=== PATIENT | male | born 1970 | race African-American/Black ===

== ENCOUNTER 2021-03-21 18:48 | Inpatient (IN) | payer OTHER, SELFPAY ==
--- NOTE | 2021-03-21 18:53 | ED_ITS ---
HPI - Psych General Chief Complaint: Psychiatric Symptoms Stated Complaint: crisis Time Seen by Provider: 03/21/21 19:36 Source: patient Mode of arrival: ambulatory Limitations: no limitations History of Present Illness HPI Narrative: Patient presents to ED for depression, and suicidal ideation with plan to overdose. Patient was recently discharged from inpatient psychiatry and was sent to partial hospitalization and then was discharged by Partial hospitalization although he still states having suicidal thoughts and being depressed. Patient was sent to his residential where they refused to take care of patient due to patient still having SI thoughts. [facility] called [facility] is a patient could be evaluated in the ED. Patient feeling anxious. Related Data Home Medications Medication Instructions Recorded Confirmed cholecalciferol (vitamin D3) 25 mcg PO DAILY 03/21/21 03/21/21 [Vitamin D3] clonidine HCl 0.1 mg PO BID PRN 03/21/21 03/21/21 pantoprazole 40 mg PO DAILY 03/21/21 03/21/21 phenytoin sodium extended 300 mg PO DAILY 03/21/21 03/21/21 [Phenytek] trazodone 100 mg PO BEDTIME 03/21/21 03/21/21 ziprasidone HCl [Geodon] 20 mg PO BID 03/21/21 03/21/21 Allergies Allergy/AdvReac Type Severity Reaction Status Date / Time No Known Allergies Allergy Verified 03/21/21 19:16 Review of Systems Review of Systems: Yes all other systems are reviewed and are negative Constitutional: Constitutional: Reports as per HPI and Reports no additional constitutional complaints Eyes: Eyes: Reports as per HPI and Reports no additional eye complaints ENT: Reports system reviewed and no additional complaints, except as documented and Reports as per HPI Cardiovascular: Cardiovascular: Reports as per HPI and Reports no additional cardiovascular complaints Respiratory: Respiratory: Reports as per HPI and Reports no additional respiratory complaints Gastrointestinal: Gastrointestinal: Reports as per HPI and Reports no additional gastrointestinal complaints Genitourinary: Genitourinary: Reports no additional male genitourinary complaints and Reports as per HPI Musculoskeletal: Musculoskeletal: Reports no additional musculoskeletal complaints and Reports as per HPI Neurologic: Reports system reviewed and no additional complaints, except as documented and Reports as per HPI Psychiatric: Psychiatric: Reports no additional psychiatric complaints, Reports as per HPI, Reports anxiety, Reports depression and Reports suicidal ideation PMFSH Social History Social History Advance Directives: No Advance Directives Information Provided: Yes Physical Exam 2 Vital Signs: Vital Signs: Last Vital Signs Temp 97.3 F 03/22/21 00:11 Pulse 63 03/22/21 00:11 Resp 16 03/22/21 00:11 BP 110/80 03/22/21 00:11 Pulse Ox 94 03/22/21 00:11 Body Mass Index 31.7 Const: General: cooperative, healthy appearing, comfortable, no acute distress, well developed, alert and awake Orientation/consciousness: patient oriented x3 HENMT: Head: Yes normal to inspection, Yes No palpable skull fracture present, Yes normocephalic, Yes atraumatic and Yes abrasion Eyes: General: appearance normal, both eyes and all related structures Neck: Neck: Yes normal visual inspection, Yes full ROM, Yes no lymphadenopathy, Yes no meningeal signs, Yes trachea midline, Yes supple and No tender Chest: Chest palpation & inspection: normal inspection of the chest and normal palpation of entire chest wall Resp: Effort & Inspection: normal respiratory effort and able to speak in complete sentences Cardio: Jugular venous distension: no JVD Heart sounds: S1 normal heart sound present and S2 normal heart sound present GI: Inspection: Yes normal to inspection and No abdominal wall ecchymosis Palpation (GI): Soft to palpation, not firm, nontender, no guarding and not rigid : General: No CVA tenderness and Yes no CVA tenderness Back/Spine/Pelvis: Back: no CVA tenderness, No CVA tenderness and No back tenderness Skin: General skin exam: no rashes or lesions noted and elasticity normal Neuro: General: patient oriented x3, gait normal, no meningeal signs and CN's II-XI intact bilaterally Cranial nerves: Yes CN's II-XII intact bilaterally Extrem: General: Yes normal to inspection and Yes full ROM Psych: Appearance: grossly normal, well kempt and not disheveled Thought content: Suicidality present and Depressive thoughts present Course Course Course Narrative: Patient will have labs drawn and be evaluated by S Reevaluation(s) Reevaluation #1: Labs are normal. Patient awatied N evaluation. MDM - Psych Lab Data Result diagrams: 03/21/21 19:34 03/21/21 19:34 Labs: Lab Results 03/21/21 03/21/21 03/21/21 Range/Units 19:22 19:23 19:23 WBC (4.8-10.8) X10*3/uL RBC (4.60-5.80) X10*6/uL Hgb (14.0-18.0) g/dl Hct (42-52) % MCV (80-98) fL MCH (27.0-33.0) pg MCHC (31.0-36.0) g/dl RDW (11.0-16.0) % Plt Count (160-400) X10*3/uL MPV (9.4-12.4) fL Immature Gran % (Auto) (0.0-0.4) % Neut % (Auto) (45-73) % Lymph % (Auto) (20-40) % [place] % (Auto) (2-11) % Eos % (Auto) (0-4) % Baso % (Auto) (0-2) % Lymph # (Auto) (1.2-4.9) X10*3/uL [place] # (Auto) (0.1-1.2) X10*3/uL Eos # (Auto) (0.0-0.4) X10*3/uL Baso # (Auto) (0.0-0.2) X10*3/uL Abs Immat Gran (auto) (0.00-0.03) X10*3/uL Absolute Neuts (auto) (2.0-8.3) X10*3/uL Absolute Nucleated RBC (0.0-0.012) X10*3/uL Nucleated RBC % (auto) (0.0-0.2) /100WBC Sodium (135-145) mmol/L Potassium (3.3-5.1) mmol/L Chloride (96-108) mmol/L Carbon Dioxide (22-29) mmol/L Anion Gap (12-20) BUN (9-16) mg/dL Creatinine (0.5-1.4) mg/dL Estim Creat Clear Calc Estimated GFR Random Glucose (60-115) mg/dL Calcium (8.4-10.2) mg/dL Total Bilirubin (0.0-1.0) mg/dL Direct Bilirubin (0.0-0.5) mg/dL AST (5-37) U/L ALT (0-40) U/L Alkaline Phosphatase (39-117) U/L Total Protein (6.5-8.0) g/dL Albumin (3.5-5.0) g/dL TSH (0.32-4.0) uIU/mL Urine Color YELLOW Urine Appearance HAZY Urine pH 6.5 (5.0-8.0) Ur Specific [place] 1.025 (1.005-1.025) Urine Protein NEG (NEG-TRACE) MG/DL Urine Glucose (UA) NEG (NEG) MG/DL Urine Ketones 5 (NEG) MG/DL Urine Blood NEG (NEG) Urine Nitrite NEG (NEG) Ur Leukocyte Esterase NEG (NEG) Urine RBC 0-2 (0) /HPF Urine WBC 0 (0-4) /HPF Ur Squamous Epith Cells TRACE /LPF Amorphous Sediment 1+ /LPF Urine Bacteria 1+ /LPF Urine Mucus 1+ /LPF Urine Opiates Screen Not Detected (Not Detect) Ur Barbiturates Screen Not Detected (Not Detect) Ur Phencyclidine Scrn Not Detected (Not Detect) Ur Amphetamines Screen Not Detected (Not Detect) U Benzodiazepines Scrn Not Detected (Not Detect) Urine Cocaine Screen Not Detected (Not Detect) U Marijuana (THC) Screen Not Detected (Not Detect) COVID-19 (VAUGHN) Negative (Negative) COVID-19 Clin Com See Note 03/21/21 03/21/21 03/21/21 Range/Units 19:34 19:34 19:34 WBC 7.0 (4.8-10.8) X10*3/uL RBC 4.89 (4.60-5.80) X10*6/uL Hgb 15.6 (14.0-18.0) g/dl Hct 44.3 (42-52) % MCV 90.6 (80-98) fL MCH 31.9 (27.0-33.0) pg MCHC 35.2 (31.0-36.0) g/dl RDW 11.9 (11.0-16.0) % Plt Count 247 (160-400) X10*3/uL MPV 9.6 (9.4-12.4) fL Immature Gran % (Auto) 0.3 (0.0-0.4) % Neut % (Auto) 52.9 (45-73) % Lymph % (Auto) 35.3 (20-40) % [place] % (Auto) 7.7 (2-11) % Eos % (Auto) 2.7 (0-4) % Baso % (Auto) 1.1 (0-2) % Lymph # (Auto) 2.5 (1.2-4.9) X10*3/uL [place] # (Auto) 0.5 (0.1-1.2) X10*3/uL Eos # (Auto) 0.2 (0.0-0.4) X10*3/uL Baso # (Auto) 0.1 (0.0-0.2) X10*3/uL Abs Immat Gran (auto) 0.02 (0.00-0.03) X10*3/uL Absolute Neuts (auto) 3.7 (2.0-8.3) X10*3/uL Absolute Nucleated RBC 0.000 (0.0-0.012) X10*3/uL Nucleated RBC % (auto) 0.0 (0.0-0.2) /100WBC Sodium 141 (135-145) mmol/L Potassium 4.0 (3.3-5.1) mmol/L Chloride 103 (96-108) mmol/L Carbon Dioxide 30 H (22-29) mmol/L Anion Gap 12 (12-20) BUN 16 (9-16) mg/dL Creatinine 1.34 (0.5-1.4) mg/dL Estim Creat Clear Calc 75.9 Estimated GFR 56 Random Glucose 109 (60-115) mg/dL Calcium 9.9 (8.4-10.2) mg/dL Total Bilirubin 0.3 (0.0-1.0) mg/dL Direct Bilirubin < 0.2 (0.0-0.5) mg/dL AST 16 (5-37) U/L ALT 18 (0-40) U/L Alkaline Phosphatase 102 (39-117) U/L Total Protein 7.6 (6.5-8.0) g/dL Albumin 4.5 (3.5-5.0) g/dL TSH 1.12 (0.32-4.0) uIU/mL Urine Color Urine Appearance Urine pH (5.0-8.0) Ur Specific [place] (1.005-1.025) Urine Protein (NEG-TRACE) MG/DL Urine Glucose (UA) (NEG) MG/DL Urine Ketones (NEG) MG/DL Urine Blood (NEG) Urine Nitrite (NEG) Ur Leukocyte Esterase (NEG) Urine RBC (0) /HPF Urine WBC (0-4) /HPF Ur Squamous Epith Cells /LPF Amorphous Sediment /LPF Urine Bacteria /LPF Urine Mucus /LPF Urine Opiates Screen (Not Detect) Ur Barbiturates Screen (Not Detect) Ur Phencyclidine Scrn (Not Detect) Ur Amphetamines Screen (Not Detect) U Benzodiazepines Scrn (Not Detect) Urine Cocaine Screen (Not Detect) U Marijuana (THC) Screen (Not Detect) COVID-19 (VAUGHN) (Negative) COVID-19 Clin Com Discharge Plan Discharge Clinical Impression: Depression Prescriptions: No Action clonidine HCl 0.1 mg Tablet 0.1 mg PO BID PRN (Reason: Anxiety) RF: 0 phenytoin sodium extended [Phenytek] 300 mg Capsule 300 mg PO DAILY RF: 0 ziprasidone HCl [Geodon] 20 mg Capsule 20 mg PO BID RF: 0 trazodone 100 mg Tablet 100 mg PO BEDTIME RF: 0 cholecalciferol (vitamin D3) [Vitamin D3] 25 mcg (1,000 unit) Capsule 25 mcg PO DAILY RF: 0 pantoprazole 40 mg Tablet,Delayed Release (Dr/Ec) 40 mg PO DAILY RF: 0
[2021-03-21 19:05] VITALS: BP 146/95; PULSE 69; RESP 18; TEMP 36.4; O2SAT 95; BMI 31.7
[2021-03-21 19:38] LABS: Appearance Urine HAZY; Color Urine YELLOW; Glucose Urine UA NEG (NEG); Leukocyte Esterase Urine NEG (NEG); Nitrite Urine NEG (NEG); PH 6.5 (5.0-8.0); Specific Gravity - Urine 1.025 (1.005-1.025); Urine Blood NEG (NEG); Urine Ketones 5 MG/DL (NEG); Urine Protein NEG (NEG-TRACE)
[2021-03-21 19:41] LABS: MANUAL DIFF FLAG NO
[2021-03-21 19:42] LABS: Basophils Absolute Auto 0.1 X10*3/uL (0.0-0.2); Basophils Percent Auto 1.1 % (0-2); Eosinophils Absolute Auto 0.2 X10*3/uL (0.0-0.4); Eosinophils Percent Auto 2.7 % (0-4); Hematocrit 44.3 % (42-52); Hemoglobin 15.6 g/dl (14.0-18.0); Imm Gran Abs Auto 0.02 X10*3/uL (0.00-0.03); Imm Gran Pct Auto 0.3 % (0.0-0.4); Lymphocytes Absolute Auto 2.5 X10*3/uL (1.2-4.9); Lymphocytes Percent Auto 35.3 % (20-40); Mean Corpuscular HGB Conc 35.2 g/dl (31.0-36.0); Mean Corpuscular Hemoglobin 31.9 pg (27.0-33.0); Mean Corpuscular Volume 90.6 fL (80-98); Mean Platelet Volume 9.6 fL (9.4-12.4); Monocytes Absolute Auto 0.5 X10*3/uL (0.1-1.2); Monocytes Percent Auto 7.7 % (2-11); Neutrophils Absolute Auto 3.7 X10*3/uL (2.0-8.3); Neutrophils Percent Auto 52.9 % (45-73); Platelet Count 247 X10*3/uL (160-400); Red Blood Count 4.89 X10*6/uL (4.60-5.80); Red Cell Distribution Width 11.9 % (11.0-16.0)
[2021-03-21 19:47] LABS: Amorphous Sediment Urine 1+ /LPF; Bacteria Urine 1+ /LPF; Mucus Urine 1+ /LPF; RBC Urine 0-2 /HPF (0); Squamous Epithelial Cell Urine TRACE /LPF; WBC Urine 0 /HPF (0-4)
[2021-03-21 19:47] LABS: COVID-19 Test Negative (Negative)
[2021-03-21 20:03] LABS: Alanine Aminotransferase 18 U/L (0-40); Albumin Level 4.5 g/dL (3.5-5.0); Alkaline Phosphatase 102 U/L (39-117); Anion Gap 12 (12-20); Aspartate Amino Transferase 16 U/L (5-37); Bilirubin Direct < 0.2 mg/dL (0.0-0.5); Bilirubin Total 0.3 mg/dL (0.0-1.0); Blood Urea Nitrogen 16 mg/dL (9-16); Calcium 9.9 mg/dL (8.4-10.2); Carbon Dioxide 30 mmol/L (22-29); Chloride 103 mmol/L (96-108); Creatinine Clr Calc Pharmacy 75.9; Estimated Glomerular Filt Rate 56; Glucose Random 109 mg/dL (60-115); Sodium 141 mmol/L (135-145); Total Protein 7.6 g/dL (6.5-8.0)
[2021-03-21 20:23] LABS: Thyroid Stimulating Hormone 1.12 uIU/mL (0.32-4.0)
[2021-03-21] MEDS: traZODone HCL 100 MG TABLET PO (22:44)
[2021-03-21] MEDS: Ziprasidone 20 MG CAPSULE PO (22:44)
[2021-03-21 23:20] LABS: Amphetamine Screen Urine Not Detected (Not Detect); Barbiturates, Urine Not Detected (Not Detect); Benzodiazepines Screen Urine Not Detected (Not Detect); Cannabinoid Screen Urine Not Detected (Not Detect); Cocaine Screen Urine Not Detected (Not Detect); Opiate Screen Urine Not Detected (Not Detect); Phencyclidine Screen Urine Not Detected (Not Detect)
--- NOTE | 2021-03-22 | ECG_ITS ---
Test Reason : MED CLEARENCE Blood Pressure : / mmHG Vent. Rate : 057 BPM Atrial Rate : 057 BPM P-R Int : 134 ms QRS Dur : 096 ms QT Int : 450 ms P-R-T Axes : 008 026 032 degrees QTc Int : 438 ms Sinus bradycardia Otherwise normal ECG No previous ECGs available Referred By: Lary Constantino Electronically Signed By:GUSTAVO MICHELLE MD
[2021-03-22 00:11] VITALS: BP 110/80; PULSE 63; RESP 16; TEMP 36.3; O2SAT 94
--- NOTE | 2021-03-22 06:43 | PC.NURSE ---
Patient in bed appears sleeping at this time, patient slept through the night, patient reported that he does not want to go back to [facility] in [place] {TSS}, awaiting N evaluation no distress observed/reported, alert and oriented, behavior appropriate, will continue to monitor.
[2021-03-22] MEDS: Omeprazole 20 MG CAPSULE.DR PO (09:20)
[2021-03-22] MEDS: Cholecalciferol (Vitamin D3) 25 MCG TABLET PO (09:20)
[2021-03-22] MEDS: Phenytoin Sodium Extended 100 MG CAPSULE 300 MG PO (09:22)
[2021-03-22] MEDS: Ziprasidone 20 MG CAPSULE PO ×2 (09:23→17:14)
--- NOTE | 2021-03-22 13:49 | PC.NURSE ---
late entry, upon start of shift patient had appeared to remain at rest with no apparent distress.
[2021-03-22 16:45] VITALS: BP 125/81; PULSE 82; RESP 16; TEMP 36.2; O2SAT 95
--- NOTE | 2021-03-22 17:39 | PC.NURSE ---
patient refused ekg
[2021-03-22 18:34] VITALS: BP 128/101; PULSE 63; TEMP 36.1
--- NOTE | 2021-03-22 19:18 | PC.NURSE ---
Pt admitted to [facility] after being in th ER at [facility]. Pt arrived on the unit at 1742. Pt is a 50 year old homeless male after he was brought by ambulance a local [facility] after he reported having SI and AH telling him to leave that facility. Pt has been DC from the program though refused to return. He has been in recovery alcohol and cocaine for the last year, said this relapse resulted in him losing stable housing and his providers in [facility] where he has lived all his life. In speaking with patient it appears that he has a mild developmental disability or a TBI impacting his memory and processing skills by Pts report, he has eloped from other programs in a similar fashion :voices warning him that he is in danger, telling him to leave immediately, therefore has not been able to access appropriate treatment/care. Pt believes they are keeping him from danger and does not have insight into the possibility of that not being true. Pt has poor judgement an impulse control. Pt has no providers, lost his housing and is unfamiliar with the area and cannot be safe in the community .Pt signed a CV.
[2021-03-22] MEDS: traZODone HCL 100 MG TABLET PO (22:49)
[2021-03-23 06:00] VITALS: BP 177/108; PULSE 76; TEMP 36.2; O2SAT 96
[2021-03-23] MEDS: Omeprazole 20 MG CAPSULE.DR PO (06:01)
[2021-03-23 06:08] VITALS: BP 177/108; PULSE 76; TEMP 36.2; O2SAT 96
[2021-03-23] MEDS: cloNIDine HCL 0.1 MG TABLET PO (06:08)
[2021-03-23 07:00] VITALS: BMI 31.2
[2021-03-23] MEDS: Cholecalciferol (Vitamin D3) 25 MCG TABLET PO (08:48)
[2021-03-23] MEDS: Phenytoin Sodium Extended 100 MG CAPSULE 300 MG PO (08:48)
[2021-03-23] MEDS: Ziprasidone 20 MG CAPSULE PO ×2 (08:48→16:26)
[2021-03-23 08:56] LABS: Cholesterol 303 mg/dL; HDL Cholesterol 59 mg/dL; LDL Cholesterol Calculated 206 mg/dl; Triglycerides 192 mg/dL
[2021-03-23 09:16] LABS: Thyroid Stimulating Hormone 0.68 uIU/mL (0.32-4.0)
[2021-03-23 09:28] LABS: Folate 4.6 ng/mL (> or = 4.0); Vitamin B12 517 pg/mL (200-900)
[2021-03-23 09:32] LABS: Estimated Average Glucose 105 mg/dL; Hemoglobin A1c % 5.3 %
[2021-03-23] MEDS: hydroCHLOROthiazide 25 MG TABLET PO (10:01)
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
[2021-03-23 18:00] VITALS: BP 141/101; PULSE 63; TEMP 36.1
[2021-03-23] MEDS: traZODone HCL 100 MG TABLET PO (20:45)
[2021-03-24 06:45] VITALS: BP 159/96; PULSE 63; RESP 18; TEMP 36.2; O2SAT 95
[2021-03-24] MEDS: Omeprazole 20 MG CAPSULE.DR PO (09:16)
[2021-03-24] MEDS: Phenytoin Sodium Extended 100 MG CAPSULE 300 MG PO (09:16)
[2021-03-24] MEDS: Cholecalciferol (Vitamin D3) 25 MCG TABLET PO (09:17)
[2021-03-24] MEDS: hydroCHLOROthiazide 25 MG TABLET PO (09:17)
[2021-03-24] MEDS: Ziprasidone 20 MG CAPSULE PO ×2 (09:17→16:07)
--- NOTE | 2021-03-24 17:25 | HO.PSYCHPN ---
Subjective Subjective Date of Service: 03/24/21 Reason For Visit: Auditory perceptual alterations with SI Subjective Notes: Conditional Voluntary Healthcare Proxy: No Guardianship: No Medical Problems Affecting Mental Status: No Interim History: Pt signed [facility] for [facility]. He reports he is feeling safer, found in his room reading the Bible. States he is able to eat, sleep and finds medicines helpful, and without SE. He is isolative for the most part. Identifies the main worry as where he will go after hospitalization. Discussed what might have triggered voices/crisis at previous placement. He will give this some thought so we may work with it in future planning. Medication Compliance: Yes Side effects from medications: No Attending Groups: No Review of Systems Reports behavioral changes Psychiatric: Reports anxiety, Reports behavioral changes, Reports depression, Reports auditory hallucinations, Reports hopelessness, Reports paranoia and Reports suicidal ideation Mental Status Exam Mental Status Exam Patient Appearance: Appropriate Patient Orientation: Person, Place, Time and Situation Level of Consciousness: Alert Patient Behavior: Appropriate, Talkative, Cooperative and Good Eye Contact Mood Description: Withdrawn and Constricted Affect Description: Withdrawn and Constricted Patient Cognition Impaired: No Ability to Follow Directions: Good Speech Pattern: Spontaneous Speech Memory Description: Episodic Impaired Hallucinations: Auditory Delusions: Paranoid Ideation Thought Process: Distracted Thought Content: positive for Perseveration Depressive Symptoms: Increased Anxiety, Diff. Making Decisions, Increased Irritability and Difficulty Concentrating Judgement: Good Diagnostics Vital Signs (24Hr): Vital Signs - 24 hr 03/23/21 18:00 03/24/21 06:45 Temperature 96.9 F 97.2 F Pulse Rate 63 63 Respiratory Rate 18 Blood Pressure 141/101 H 159/96 H Pulse Oximetry 95 Body Mass Index 31.2 Labs Results: 03/21/21 19:34 03/21/21 19:34 Labs: Laboratory Results - last 48 hr 03/23/21 03/23/21 03/23/21 07:57 07:57 07:57 Estimat Average Glucose 105 Hemoglobin A1c % 5.3 Triglycerides 192 Cholesterol 303 LDL Cholesterol, Calc 206 HDL Cholesterol 59 Vitamin B12 517 Folate 4.6 TSH 0.68 Medications Medications Current Medications Generic Name Dose Route Start Last Admin Trade Name Freq PRN Reason Stop Dose Admin Acetaminophen 650 mg 03/22/21 17:52 Acetaminophen 325 Mg Tablet PO Q6H PRN Headache/Pain Mild Scale (1-3) Al Hydroxide/Mg Hydroxide 30 ml 03/22/21 17:52 Magnesium Hydrox/Alum Hydrox 30 Ml Oral.Susp PO Q6H PRN Heartburn/Nausea Atorvastatin Calcium 10 mg 03/24/21 21:00 Atorvastatin Calcium 10 Mg Tablet PO BEDTIME CHRIS Clonidine HCl 0.1 mg 03/21/21 21:16 03/23/21 06:08 Clonidine Hcl 0.1 Mg Tablet PO 0.1 mg BID PRN Administration Anxiety Protocol Hydrochlorothiazide 25 mg 03/23/21 09:15 03/24/21 09:17 Hydrochlorothiazide 25 Mg Tablet PO 25 mg DAILY CHRIS Administration Protocol Hydroxyzine HCl 25 mg 03/22/21 17:52 Hydroxyzine Hcl 25 Mg Tablet PO BEDTIME PRN Anxiety Magnesium Hydroxide 30 ml 03/22/21 17:52 Milk Of Magnesia 30 Ml Oral.Susp PO DAILY PRN Constipation Omeprazole 20 mg 03/22/21 06:30 03/24/21 09:16 Omeprazole 20 Mg Capsule.Dr PO 20 mg DAILY@0630 CHRIS Administration Phenytoin Sodium 300 mg 03/22/21 09:00 03/24/21 09:16 Phenytoin Sodium Extended 100 Mg Capsule PO 300 mg DAILY CHRIS Administration Trazodone HCl 100 mg 03/21/21 21:30 03/23/21 20:45 Trazodone Hcl 100 Mg Tablet PO 100 mg BEDTIME CHRIS Administration Trazodone HCl 50 mg 03/22/21 17:52 Trazodone Hcl 50 Mg Tablet PO BEDTIME PRN Insomnia Vitamin D 25 mcg 03/22/21 09:00 03/24/21 09:17 Cholecalciferol (Vitamin D3) 25 Mcg Tablet PO 25 mcg DAILY CHRIS Administration Ziprasidone 20 mg 03/21/21 21:30 03/24/21 16:07 Ziprasidone 20 Mg Capsule PO 20 mg BIDAC CHRIS Administration Allergies Allergies Allergy/AdvReac Type Severity Reaction Status Date / Time No Known Allergies Allergy Verified 03/21/21 19:16 Assessment & Plan Assessment & Plan (1) Chronic schizophrenia: Status: Acute Code(s): F20.9 - Schizophrenia, unspecified Assessment and Plan: 50 yo male, reporting an increase in perceptual alterations,SI after coming to [facility] from [facility]. Reports sleep and appetite are intact-just perceptual alterations and SI are current issues. Pt declines med changes at this time, howver will allow treatment of HLD. Will continue to discuss sx/rx with him -Collateral contact [facility] -Atorvastatin 10 mg daily -Possible change from Ale as pt refuses titration due to SE-reports anxiety and panic on higher doses. -Pt is concerned about where he will go next and worried he will not be able to remain. Greater than 50% of the session was spent on counseling and/or coordination of care Reason for contiued inpatient stay Substantial Risk for: harm to self, inability to function and rapid decompensation
[2021-03-24 18:00] VITALS: BP 160/99; PULSE 84; TEMP 35.7
[2021-03-24] MEDS: Atorvastatin Calcium 10 MG TABLET PO (20:21)
[2021-03-24] MEDS: traZODone HCL 100 MG TABLET PO (20:21)
[2021-03-25] MEDS: Ziprasidone 20 MG CAPSULE PO ×2 (06:30→17:17)
[2021-03-25] MEDS: Omeprazole 20 MG CAPSULE.DR PO (06:30)
[2021-03-25 06:35] VITALS: BP 143/83; PULSE 60; RESP 20; O2SAT 95
[2021-03-25] MEDS: hydroCHLOROthiazide 25 MG TABLET PO (08:53)
[2021-03-25] MEDS: Phenytoin Sodium Extended 100 MG CAPSULE 300 MG PO (08:53)
[2021-03-25] MEDS: Cholecalciferol (Vitamin D3) 25 MCG TABLET PO (08:53)
--- NOTE | 2021-03-25 15:16 | P.PNPSI_ITS ---
Subjective Subjective Date of Service: 03/25/21 Reason For Visit: Auditory perceptual alterations with SI Subjective Notes: Conditional Voluntary Interim History: reports that he is starting to feel better. Reports hallucinations have resolved. No longer feeling suicidal today. feels that mood is good. Sleep okay. Appetite okay. Reports his main concern is disposition planning and likes over housing. Also reports that in transitional support settings and rehab settings he is often decompensated with hallucinations and suicidal thoughts and unclear why. 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 Reports being supported by Mother. Review of Systems Review of Systems Unremarkable Mental Status Exam Mental Status Exam Narrative: seen in room. Reading Bible. Casually dressed and good hygiene. Oriented. Euthymic. Denies SI or HI. Denied paranoia. Denied hallucinations. Insight and judgment fair Diagnostics Vital Signs (24Hr): Vital Signs - 24 hr 03/24/21 18:00 03/25/21 06:35 Temperature 96.3 F L Pulse Rate 84 60 Respiratory Rate 20 Blood Pressure 160/99 H 143/83 H Pulse Oximetry 95 Body Mass Index 31.2 Labs Results: 03/21/21 19:34 03/21/21 19:34 Medications Medications Current Medications Generic Name Dose Route Start Last Admin Trade Name Freq PRN Reason Stop Dose Admin Acetaminophen 650 mg 03/22/21 17:52 Acetaminophen 325 Mg Tablet PO Q6H PRN Headache/Pain Mild Scale (1-3) Al Hydroxide/Mg Hydroxide 30 ml 03/22/21 17:52 Magnesium Hydrox/Alum Hydrox 30 Ml Oral.Susp PO Q6H PRN Heartburn/Nausea Atorvastatin Calcium 10 mg 03/24/21 21:00 03/24/21 20:21 Atorvastatin Calcium 10 Mg Tablet PO 10 mg BEDTIME CHRIS Administration Clonidine HCl 0.1 mg 03/21/21 21:16 03/23/21 06:08 Clonidine Hcl 0.1 Mg Tablet PO 0.1 mg BID PRN Administration Anxiety Protocol Hydrochlorothiazide 25 mg 03/23/21 09:15 03/25/21 08:53 Hydrochlorothiazide 25 Mg Tablet PO 25 mg DAILY CHRIS Administration Protocol Hydroxyzine HCl 25 mg 03/22/21 17:52 Hydroxyzine Hcl 25 Mg Tablet PO BEDTIME PRN Anxiety Magnesium Hydroxide 30 ml 03/22/21 17:52 Milk Of Magnesia 30 Ml Oral.Susp PO DAILY PRN Constipation Omeprazole 20 mg 03/22/21 06:30 03/25/21 06:30 Omeprazole 20 Mg Capsule. PO 20 mg DAILY@0630 CHRIS Administration Phenytoin Sodium 300 mg 03/22/21 09:00 03/25/21 08:53 Phenytoin Sodium Extended 100 Mg Capsule PO 300 mg DAILY CHRIS Administration Trazodone HCl 100 mg 03/21/21 21:30 03/24/21 20:21 Trazodone Hcl 100 Mg Tablet PO 100 mg BEDTIME CHRIS Administration Trazodone HCl 50 mg 03/22/21 17:52 Trazodone Hcl 50 Mg Tablet PO BEDTIME PRN Insomnia Vitamin D 25 mcg 03/22/21 09:00 03/25/21 08:53 Cholecalciferol (Vitamin D3) 25 Mcg Tablet PO 25 mcg DAILY CHRIS Administration Ziprasidone 20 mg 03/21/21 21:30 03/25/21 06:30 Ziprasidone 20 Mg Capsule PO 20 mg BIDAC CHRIS Administration Allergies Allergies Allergy/AdvReac Type Severity Reaction Status Date / Time No Known Allergies Allergy Verified 03/21/21 19:16 Assessment & Plan Assessment & Plan (1) Chronic schizophrenia: Status: Acute Code(s): F20.9 - Schizophrenia, unspecified Assessment and Plan: 50 yo male, reporting an increase in perceptual alterations,SI after coming to [facility] from [facility]. Reports sleep and appetite are intact- just perceptual alterations and SI are current issues. Pt declines med changes at this time, howver will allow treatment of HLD. Will continue to discuss sx/rx with him -Collateral contact [facility] -Atorvastatin 10 mg daily - no changes to Geodon dosing as feels this is beneficial- Also aware there may be side effects at higher doses. -Pt is concerned about where he will go next and worried he will not be able to remain. Greater than 50% of the session was spent on counseling and/or coordination of care Reason for contiued inpatient stay Substantial Risk for: harm to self and inability to function
[2021-03-25 18:00] VITALS: BP 145/93; PULSE 62; TEMP 36.2
[2021-03-25] MEDS: Atorvastatin Calcium 10 MG TABLET PO (20:49)
[2021-03-25] MEDS: traZODone HCL 100 MG TABLET PO (20:49)
[2021-03-26 06:00] VITALS: BP 133/85; PULSE 65; RESP 18; TEMP 35.9; O2SAT 98
[2021-03-26] MEDS: Phenytoin Sodium Extended 100 MG CAPSULE 300 MG PO (08:23)
[2021-03-26] MEDS: Cholecalciferol (Vitamin D3) 25 MCG TABLET PO (08:23)
[2021-03-26] MEDS: Omeprazole 20 MG CAPSULE.DR PO (08:23)
[2021-03-26] MEDS: Ziprasidone 20 MG CAPSULE PO ×2 (08:23→16:19)
[2021-03-26] MEDS: hydroCHLOROthiazide 25 MG TABLET PO (08:24)
--- NOTE | 2021-03-26 15:36 | HO.PSYCHPN ---
Subjective Subjective Date of Service: 03/26/21 Reason For Visit: Auditory perceptual alterations with SI Interim History: reports that he is feeling and no AH. No longer feeling suicidal and mood is good. Sleep okay. Appetite okay. Main concern remains disposition planning and where he might stay and hopeful for sober living; while balancing that with reports that in transitional support settings and rehab settings he is often decompensated with hallucinations and suicidal thoughts and unclear why. Review of Systems Review of Systems Unremarkable Yes all other systems are reviewed and are negative Constitutional: Reports as per HPI and Reports no additional constitutional complaints Eyes: Reports as per HPI and Reports no additional eye complaints Reports system reviewed and no additional complaints, except as documented and Reports as per HPI Cardiovascular: Reports as per HPI and Reports no additional cardiovascular complaints Respiratory: Reports as per HPI and Reports no additional respiratory complaints Gastrointestinal: Reports as per HPI and Reports no additional gastrointestinal complaints Genitourinary: Reports no additional male genitourinary complaints and Reports as per HPI Musculoskeletal: Reports no additional musculoskeletal complaints and Reports as per HPI Reports system reviewed and no additional complaints, except as documented, Reports as per HPI and Reports behavioral changes Psychiatric: Reports no additional psychiatric complaints, Reports as per HPI, Reports anxiety, Reports behavioral changes, Reports depression, Reports difficulty concentrating, Reports auditory hallucinations, Reports hopelessness, Reports anhedonia, Reports mood swings, Reports paranoia and Reports suicidal ideation Mental Status Exam Mental Status Exam Narrative: seen in room. Reading book home front . Casually dressed and good hygiene. Oriented. Euthymic. Denies SI or HI. Denied paranoia. Denied hallucinations. Insight and judgment fair Patient Appearance: Appropriate Patient Orientation: Person, Place, Time and Situation Level of Consciousness: Alert Patient Behavior: Appropriate, Talkative, Cooperative and Good Eye Contact Mood Description: Withdrawn and Constricted Affect Description: Withdrawn and Constricted Patient Cognition Impaired: No Ability to Follow Directions: Good Speech Pattern: Spontaneous Speech Memory Description: Episodic Impaired Diagnostics Vital Signs (24Hr): Vital Signs - 24 hr 03/25/21 18:00 03/26/21 06:00 Temperature 97.1 F 96.7 F L Pulse Rate 62 65 Respiratory Rate 18 Blood Pressure 145/93 H 133/85 Pulse Oximetry 98 Body Mass Index 31.2 Labs Results: 03/21/21 19:34 03/21/21 19:34 Medications Medications Current Medications Generic Name Dose Route Start Last Admin Trade Name Freq PRN Reason Stop Dose Admin Acetaminophen 650 mg 03/22/21 17:52 Acetaminophen 325 Mg Tablet PO Q6H PRN Headache/Pain Mild Scale (1-3) Al Hydroxide/Mg Hydroxide 30 ml 03/22/21 17:52 Magnesium Hydrox/Alum Hydrox 30 Ml Oral.Susp PO Q6H PRN Heartburn/Nausea Atorvastatin Calcium 10 mg 03/24/21 21:00 03/25/21 20:49 Atorvastatin Calcium 10 Mg Tablet PO 10 mg BEDTIME CHRIS Administration Clonidine HCl 0.1 mg 03/21/21 21:16 03/23/21 06:08 Clonidine Hcl 0.1 Mg Tablet PO 0.1 mg BID PRN Administration Anxiety Protocol Hydrochlorothiazide 25 mg 03/23/21 09:15 03/26/21 08:24 Hydrochlorothiazide 25 Mg Tablet PO 25 mg DAILY CHRIS Administration Protocol Hydroxyzine HCl 25 mg 03/22/21 17:52 Hydroxyzine Hcl 25 Mg Tablet PO BEDTIME PRN Anxiety Magnesium Hydroxide 30 ml 03/22/21 17:52 Milk Of Magnesia 30 Ml Oral.Susp PO DAILY PRN Constipation Omeprazole 20 mg 03/22/21 06:30 03/26/21 08:23 Omeprazole 20 Mg Capsule. PO 20 mg DAILY@0630 CHRIS Administration Phenytoin Sodium 300 mg 03/22/21 09:00 03/26/21 08:23 Phenytoin Sodium Extended 100 Mg Capsule PO 300 mg DAILY CHRIS Administration Trazodone HCl 100 mg 03/21/21 21:30 03/25/21 20:49 Trazodone Hcl 100 Mg Tablet PO 100 mg BEDTIME CHRIS Administration Trazodone HCl 50 mg 03/22/21 17:52 Trazodone Hcl 50 Mg Tablet PO BEDTIME PRN Insomnia Vitamin D 25 mcg 03/22/21 09:00 03/26/21 08:23 Cholecalciferol (Vitamin D3) 25 Mcg Tablet PO 25 mcg DAILY CHRIS Administration Ziprasidone 20 mg 03/21/21 21:30 03/26/21 08:23 Ziprasidone 20 Mg Capsule PO 20 mg BIDAC CHRIS Administration Allergies Allergies Allergy/AdvReac Type Severity Reaction Status Date / Time No Known Allergies Allergy Verified 03/21/21 19:16 Assessment & Plan Assessment & Plan (1) Chronic schizophrenia: Status: Acute Code(s): F20.9 - Schizophrenia, unspecified Assessment and Plan: 50 yo male, reporting an increase in perceptual alterations,SI after coming to [facility] from [facility]. Reports sleep and appetite are intact-just perceptual alterations and SI are current issues. Pt declines med changes at this time, howver will allow treatment of HLD. Will continue to discuss sx/rx with him -Collateral contact [facility] -Atorvastatin 10 mg daily - no changes to Geodon dosing as feels this is beneficial- Also aware there may be side effects at higher doses. -Pt is concerned about where he will go next and worried he will not be able to remain. Greater than 50% of the session was spent on counseling and/or coordination of care Reason for contiued inpatient stay Substantial Risk for: rapid decompensation
[2021-03-26 16:13] VITALS: BP 139/88; PULSE 70; TEMP 36.7
[2021-03-26] MEDS: traZODone HCL 100 MG TABLET PO (20:44)
[2021-03-26] MEDS: Atorvastatin Calcium 10 MG TABLET PO (20:44)
[2021-03-27 06:00] VITALS: BP 135/94; PULSE 66; TEMP 36.5; O2SAT 95
[2021-03-27] MEDS: Omeprazole 20 MG CAPSULE.DR PO (06:29)
[2021-03-27] MEDS: Ziprasidone 20 MG CAPSULE PO ×2 (08:34→16:48)
[2021-03-27] MEDS: Phenytoin Sodium Extended 100 MG CAPSULE 300 MG PO (08:34)
[2021-03-27] MEDS: hydroCHLOROthiazide 25 MG TABLET PO (08:34)
[2021-03-27] MEDS: Cholecalciferol (Vitamin D3) 25 MCG TABLET PO (08:35)
--- NOTE | 2021-03-27 12:56 | HO.PSYCHPN ---
Subjective Subjective Date of Service: 03/27/21 Reason For Visit: Auditory perceptual alterations with SI Subjective Notes: Conditional Voluntary Healthcare Proxy: No Guardianship: No Medical Problems Affecting Mental Status: No Interim History: Ritchie reports a reasonable weekend. Today he discussed the voices-currently they have subsided almost completely. He reports they have full control. They tell him where to go and when to leave-he is terrified of them. They have been present for a long while. They will not allow him to settle in one area as if he remains too long they convince him he is in danger. Discussed Geodon titration and the panic attack he experienced when he increased it. He described sx of akathesia/EPS with motor restlessness vs panic. We discussed options for Rx-benztropine, amantadine, prn benadryl and discussed this sx vs panic. Pt reports he has never really been able to put a treatment team together as voices tell him to move constantly. Discussed having a mild CVA years ago and knowing at that time he needed to settle in one place and become connected but has never been able to do this. Hopes he will be able to settle in this area and make relationships with care providers. Has applied for [facility] services in [place]. Message left with [facility] [phone]. Review of Systems Psychiatric: Reports anxiety, Reports paranoia and Reports suicidal ideation (denies) Mental Status Exam Mental Status Exam Patient Appearance: Appropriate Patient Orientation: Person, Place, Time and Situation Level of Consciousness: Alert Patient Behavior: Talkative, Cooperative, Anxious and Good Eye Contact Mood Description: Anxious and Apprehensive Affect Description: Apprehensive Patient Cognition Impaired: No Ability to Follow Directions: Good Speech Pattern: Spontaneous Speech Memory Description: Intact Hallucinations: None (denies) Thought Process: Distracted and Goal Oriented Thought Content: positive for [place], positive for Circumstantial and positive for Suicidal Ideation (denies) Depressive Symptoms: Increased Anxiety and Diff. Making Decisions Judgement: Good Diagnostics Vital Signs (24Hr): Vital Signs - 24 hr 03/26/21 16:13 03/27/21 06:00 Temperature 98.1 F 97.7 F Pulse Rate 70 66 Blood Pressure 139/88 135/94 H Pulse Oximetry 95 Body Mass Index 31.2 Labs Results: 03/21/21 19:34 03/21/21 19:34 Medications Medications Current Medications Generic Name Dose Route Start Last Admin Trade Name Freq PRN Reason Stop Dose Admin Acetaminophen 650 mg 03/22/21 17:52 Acetaminophen 325 Mg Tablet PO Q6H PRN Headache/Pain Mild Scale (1-3) Al Hydroxide/Mg Hydroxide 30 ml 03/22/21 17:52 Magnesium Hydrox/Alum Hydrox 30 Ml Oral.Susp PO Q6H PRN Heartburn/Nausea Atorvastatin Calcium 10 mg 03/24/21 21:00 03/26/21 20:44 Atorvastatin Calcium 10 Mg Tablet PO 10 mg BEDTIME CHRIS Administration Clonidine HCl 0.1 mg 03/21/21 21:16 03/23/21 06:08 Clonidine Hcl 0.1 Mg Tablet PO 0.1 mg BID PRN Administration Anxiety Protocol Hydrochlorothiazide 25 mg 03/23/21 09:15 03/27/21 08:34 Hydrochlorothiazide 25 Mg Tablet PO 25 mg DAILY CHRIS Administration Protocol Hydroxyzine HCl 25 mg 03/22/21 17:52 Hydroxyzine Hcl 25 Mg Tablet PO BEDTIME PRN Anxiety Magnesium Hydroxide 30 ml 03/22/21 17:52 Milk Of Magnesia 30 Ml Oral.Susp PO DAILY PRN Constipation Omeprazole 20 mg 03/22/21 06:30 03/27/21 06:29 Omeprazole 20 Mg Capsule.Dr PO 20 mg DAILY@0630 CHRIS Administration Phenytoin Sodium 300 mg 03/22/21 09:00 03/27/21 08:34 Phenytoin Sodium Extended 100 Mg Capsule PO 300 mg DAILY CHRIS Administration Trazodone HCl 100 mg 03/21/21 21:30 03/26/21 20:44 Trazodone Hcl 100 Mg Tablet PO 100 mg BEDTIME CHRIS Administration Trazodone HCl 50 mg 03/22/21 17:52 Trazodone Hcl 50 Mg Tablet PO BEDTIME PRN Insomnia Vitamin D 25 mcg 03/22/21 09:00 03/27/21 08:35 Cholecalciferol (Vitamin D3) 25 Mcg Tablet PO 25 mcg DAILY CHRIS Administration Ziprasidone 20 mg 03/21/21 21:30 03/27/21 08:34 Ziprasidone 20 Mg Capsule PO 20 mg BIDAC CHRIS Administration Allergies Allergies Allergy/AdvReac Type Severity Reaction Status Date / Time No Known Allergies Allergy Verified 03/21/21 19:16 Assessment & Plan Assessment & Plan (1) Chronic schizophrenia: Status: Acute Code(s): F20.9 - Schizophrenia, unspecified Assessment and Plan: 50 yo male, reporting an increase in perceptual alterations,SI after coming to [facility] from [facility]. Reports sleep and appetite are intact-just perceptual alterations and SI are current issues. Pt declines med changes at this time, howver will allow treatment of HLD. Will continue to discuss sx/rx with him -Collateral contact [facility] -Atorvastatin 10 mg daily - no changes to Geodon dosing as feels this is beneficial- Also aware there may be side effects at higher doses. -Pt is concerned about where he will go next and worried he will not be able to remain. Greater than 50% of the session was spent on counseling and/or coordination of care Reason for contiued inpatient stay Substantial Risk for: harm to self, inability to function and rapid decompensation
[2021-03-27 16:32] VITALS: BP 151/95; PULSE 76; TEMP 36
[2021-03-27 20:53] LABS: COVID-19 Test Negative (Negative)
[2021-03-27] MEDS: Atorvastatin Calcium 10 MG TABLET PO (21:03)
[2021-03-27] MEDS: traZODone HCL 100 MG TABLET PO (21:03)
[2021-03-27 21:09] VITALS: BP 142/89; PULSE 64
[2021-03-28] MEDS: Omeprazole 20 MG CAPSULE.DR PO (06:10)
[2021-03-28 06:34] VITALS: BP 130/77; PULSE 63; RESP 18; TEMP 36.9; O2SAT 98
[2021-03-28] MEDS: Phenytoin Sodium Extended 100 MG CAPSULE 300 MG PO (08:08)
[2021-03-28] MEDS: hydroCHLOROthiazide 25 MG TABLET PO (08:08)
[2021-03-28] MEDS: Cholecalciferol (Vitamin D3) 25 MCG TABLET PO (08:08)
[2021-03-28] MEDS: Ziprasidone 20 MG CAPSULE PO (08:08)
--- NOTE | 2021-03-28 11:04 | P.DS_ITS ---
DS: Providers Provider Date of Service: 03/28/21 Date of admission: 03/22/21 17:52 Date of discharge: 03/28/21 Primary care physician: Nusrat Physician Admitting clinician: Luda Hurtado Attending physician on admission: Edgardo Chaidez Attending physician on discharge: Edgardo Chaidez Discharging clinician: Luda Hurtado DS: Diagnosis Discharge Diagnosis (1) Chronic schizophrenia: Start date: 03/22/21 Status: Acute DS: Medications Discharge Medications Home Medications: Previous Rx's Medication Instructions Recorded atorvastatin 10 mg PO BEDTIME #30 tab 03/28/21 cholecalciferol (vitamin D3) 25 mcg PO DAILY #30 cap 03/28/21 [Vitamin D3] clonidine HCl 0.1 mg PO BID PRN #60 tab 03/28/21 hydrochlorothiazide 25 mg PO DAILY #30 tab 03/28/21 pantoprazole 40 mg PO DAILY #30 tab 03/28/21 phenytoin sodium extended 300 mg PO DAILY #30 cap 03/28/21 [Phenytek] trazodone 100 mg PO BEDTIME #30 tab 03/28/21 ziprasidone HCl [Geodon] 20 mg PO BID #60 cap 03/28/21 Mental Status Exam Mental Status Exam Patient Appearance: Appropriate Patient Orientation: Person, Place, Time and Situation Level of Consciousness: Alert Patient Behavior: Talkative, Cooperative, Anxious and Good Eye Contact Mood Description: Anxious and Apprehensive Affect Description: Apprehensive Patient Cognition Impaired: No Ability to Follow Directions: Good Speech Pattern: Spontaneous Speech Memory Description: Intact Hallucinations: None (denies) Thought Process: Distracted and Goal Oriented Thought Content: positive for [place], positive for Circumstantial and positive for Suicidal Ideation (denies) Depressive Symptoms: Increased Anxiety and Diff. Making Decisions Judgement: Good Data Data Completed and Pending Completed studies during hospitalization [Text1]: 03/21/21 03/21/21 03/21/21 19:22 19:23 19:23 WBC RBC Hgb Hct MCV MCH MCHC RDW Plt Count MPV Immature Gran % (Auto) Neut % (Auto) Lymph % (Auto) Maury % (Auto) Eos % (Auto) Baso % (Auto) Lymph # (Auto) Maury # (Auto) Eos # (Auto) Baso # (Auto) Abs Immat Gran (auto) Absolute Neuts (auto) Absolute Nucleated RBC Nucleated RBC % (auto) Sodium Potassium Chloride Carbon Dioxide Anion Gap BUN Creatinine Estim Creat Clear Calc Estimated GFR Random Glucose Estimat Average Glucose Hemoglobin A1c % Calcium Total Bilirubin Direct Bilirubin AST ALT Alkaline Phosphatase Total Protein Albumin Triglycerides Cholesterol LDL Cholesterol, Calc HDL Cholesterol Vitamin B12 Folate TSH Urine Color YELLOW Urine Appearance HAZY Urine pH 6.5 Ur Specific [place] 1.025 Urine Protein NEG Urine Glucose (UA) NEG Urine Ketones 5 Urine Blood NEG Urine Nitrite NEG Ur Leukocyte Esterase NEG Urine RBC 0-2 Urine WBC 0 Ur Squamous Epith Cells TRACE Amorphous Sediment 1+ Urine Bacteria 1+ Urine Mucus 1+ Urine Opiates Screen Not Detected Ur Barbiturates Screen Not Detected Ur Phencyclidine Scrn Not Detected Ur Amphetamines Screen Not Detected U Benzodiazepines Scrn Not Detected Urine Cocaine Screen Not Detected U Marijuana (THC) Screen Not Detected COVID-19 ([facility]AUGHN) Negative COVID-19 Clin Com See Note 03/21/21 03/21/21 03/21/21 19:34 19:34 19:34 WBC 7.0 RBC 4.89 Hgb 15.6 Hct 44.3 MCV 90.6 MCH 31.9 MCHC 35.2 RDW 11.9 Plt Count 247 MPV 9.6 Immature Gran % (Auto) 0.3 Neut % (Auto) 52.9 Lymph % (Auto) 35.3 Maury % (Auto) 7.7 Eos % (Auto) 2.7 Baso % (Auto) 1.1 Lymph # (Auto) 2.5 Maury # (Auto) 0.5 Eos # (Auto) 0.2 Baso # (Auto) 0.1 Abs Immat Gran (auto) 0.02 Absolute Neuts (auto) 3.7 Absolute Nucleated RBC 0.000 Nucleated RBC % (auto) 0.0 Sodium 141 Potassium 4.0 Chloride 103 Carbon Dioxide 30 H Anion Gap 12 BUN 16 Creatinine 1.34 Estim Creat Clear Calc 75.9 Estimated GFR 56 Random Glucose 109 Estimat Average Glucose Hemoglobin A1c % Calcium 9.9 Total Bilirubin 0.3 Direct Bilirubin < 0.2 AST 16 ALT 18 Alkaline Phosphatase 102 Total Protein 7.6 Albumin 4.5 Triglycerides Cholesterol LDL Cholesterol, Calc HDL Cholesterol Vitamin B12 Folate TSH 1.12 Urine Color Urine Appearance Urine pH Ur Specific [place] Urine Protein Urine Glucose (UA) Urine Ketones Urine Blood Urine Nitrite Ur Leukocyte Esterase Urine RBC Urine WBC Ur Squamous Epith Cells Amorphous Sediment Urine Bacteria Urine Mucus Urine Opiates Screen Ur Barbiturates Screen Ur Phencyclidine Scrn Ur Amphetamines Screen U Benzodiazepines Scrn Urine Cocaine Screen U Marijuana (THC) Screen COVID-19 ([facility]) COVID-19 Clin Com 03/23/21 03/23/21 03/23/21 07:57 07:57 07:57 WBC RBC Hgb Hct MCV MCH MCHC RDW Plt Count MPV Immature Gran % (Auto) Neut % (Auto) Lymph % (Auto) Maury % (Auto) Eos % (Auto) Baso % (Auto) Lymph # (Auto) Maury # (Auto) Eos # (Auto) Baso # (Auto) Abs Immat Gran (auto) Absolute Neuts (auto) Absolute Nucleated RBC Nucleated RBC % (auto) Sodium Potassium Chloride Carbon Dioxide Anion Gap BUN Creatinine Estim Creat Clear Calc Estimated GFR Random Glucose Estimat Average Glucose 105 Hemoglobin A1c % 5.3 Calcium Total Bilirubin Direct Bilirubin AST ALT Alkaline Phosphatase Total Protein Albumin Triglycerides 192 Cholesterol 303 LDL Cholesterol, Calc 206 HDL Cholesterol 59 Vitamin B12 517 Folate 4.6 TSH 0.68 Urine Color Urine Appearance Urine pH Ur Specific [place] Urine Protein Urine Glucose (UA) Urine Ketones Urine Blood Urine Nitrite Ur Leukocyte Esterase Urine RBC Urine WBC Ur Squamous Epith Cells Amorphous Sediment Urine Bacteria Urine Mucus Urine Opiates Screen Ur Barbiturates Screen Ur Phencyclidine Scrn Ur Amphetamines Screen U Benzodiazepines Scrn Urine Cocaine Screen U Marijuana (THC) Screen COVID-19 ([facility]AUGHN) COVID-19 [employer] Com 03/27/21 20:33 WBC RBC Hgb Hct MCV MCH MCHC RDW Plt Count MPV Immature Gran % (Auto) Neut % (Auto) Lymph % (Auto) Maury % (Auto) Eos % (Auto) Baso % (Auto) Lymph # (Auto) Maury # (Auto) Eos # (Auto) Baso # (Auto) Abs Immat Gran (auto) Absolute Neuts (auto) Absolute Nucleated RBC Nucleated RBC % (auto) Sodium Potassium Chloride Carbon Dioxide Anion Gap BUN Creatinine Estim Creat Clear Calc Estimated GFR Random Glucose Estimat Average Glucose Hemoglobin A1c % Calcium Total Bilirubin Direct Bilirubin AST ALT Alkaline Phosphatase Total Protein Albumin Triglycerides Cholesterol LDL Cholesterol, Calc HDL Cholesterol Vitamin B12 Folate TSH Urine Color Urine Appearance Urine pH Ur Specific [place] Urine Protein Urine Glucose (UA) Urine Ketones Urine Blood Urine Nitrite Ur Leukocyte Esterase Urine RBC Urine WBC Ur Squamous Epith Cells Amorphous Sediment Urine Bacteria Urine Mucus Urine Opiates Screen Ur Barbiturates Screen Ur Phencyclidine Scrn Ur Amphetamines Screen U Benzodiazepines Scrn Urine Cocaine Screen U Marijuana (THC) Screen COVID-19 ([facility]) Negative COVID-19 Clin Com See Note DS: Summary Hospital Course Hospital Course: Pt was admitted on conditional voluntary. Medications were re-established. Hyperlipidemia and hypertension issues were addressed with iniation of Atorvastatin and hydrochlorthiazide. Geodon was re-established. Pt was able to make alliances with team and shared that he had been moving around the state as voices were telling him he was not safe in certain areas. He discussed struggles with trying to figure out life and how to manage symptoms. He reported family being in the [facility] however not having a desire to return there. There were no behavioral issues while pt was on the unit. He was able to contract for his safety, he accepted referrals and was able to discharge to out patient care and residential without concerns. Time spent discussing smoking cessation with patient: 3 to 10 minutes Status at Discharge Cognitive/behavioral status at discharge: non-psychotic, non-suicidal. alert, a ttentive, agrees with discharge plans Functional status at discharge: independent ambulation Overall status at discharge: patient is back to baseline Time Spent with Patient Time attestation: Total time spent providing and/or coordinating discharge services:35 Time spent: Greater than 30 minutes Discharge Plan Discharge Anticipated Discharge Date/Time: 03/28/21 14:00 Patient Disposition: Long Term Discharge Diagnosis: Schizophrenia Referrals: Vera Lucio (therapy intake) [Other] - 03/30/21 2:00 pm (Appointment is over the phone. They will call you at the [facility] at the number: [phone]. You will need to meet with the therapist 3 times before getting on the list for a psychiatrist) LYNETTE ROSARIO [Other] - 03/30/21 3:00 pm (VIA PHONE) Physician,None [Primary Care Provider] - 1 Week Discharge Medications: New atorvastatin 10 mg Tablet 10 mg PO BEDTIME Qty: 30 RF: 1 hydrochlorothiazide 25 mg Tablet 25 mg PO DAILY Qty: 30 RF: 1 Continued clonidine HCl 0.1 mg Tablet 0.1 mg PO BID PRN (Reason: Anxiety) Qty: 60 RF: 1 phenytoin sodium extended [Phenytek] 300 mg Capsule 300 mg PO DAILY Qty: 30 RF: 1 ziprasidone HCl [Geodon] 20 mg Capsule 20 mg PO BID Qty: 60 RF: 1 trazodone 100 mg Tablet 100 mg PO BEDTIME Qty: 30 RF: 1 pantoprazole 40 mg Tablet,Delayed Release (Dr/Ec) 40 mg PO DAILY Qty: 30 RF: 1 cholecalciferol (vitamin D3) [Vitamin D3] 25 mcg (1,000 unit) Capsule 25 mcg PO DAILY Qty: 30 RF: 1 Discharge Orders: Discharge Order (Routine); Ordered 03/28/21 Ordered By: Luda Hurtado Diet: advance to usual diet Activity on Discharge: As tolerated Stand Alone Forms: Patient Portal Discharge page, Community Support Care Plan Goals: Mood stabilization Sobriety Health Concerns: Schizophrenia- medication and therapy as directed High Blood Pressure-continue medication, diet, exercise interventions High cholesterol-medication started while in the hospital Plan of Treatment: Attend scheduled appointments Take medications as directed Create a consistent health care team who will get to know you and provide consistency with your care and treatment Assessment: Alert, oriented, non-suicidal, denies current sx, mood is stable. Apprehensive about new placement. Discharge Date/Time: 03/28/21 16:08
== END 2021-03-28 16:08 | disposition home or self-care (01) | DRG 750 ==
LOC: HO.ED 03-22 18:11 → HO.PM5 03-22 18:19
PROVIDERS: Physician Assistant; Admitting Provider Social Worker; Emergency Provider Student in an Organized Health Care Education/Training Program; Visit Provider Clinical Nurse Specialist Psychiatric/Mental Health, Adult
DX: F20.9 Schizophrenia, unspecified (principal); R45.851 Suicidal ideations; G40.909 Epilepsy, unspecified, not intractable, without status epilepticus; Z87.820 Personal history of traumatic brain injury; Z20.822 Contact with and (suspected) exposure to COVID-19; Z79.899 Other long term (current) drug therapy
CPT/HCPCS: 36415; 80048; 80061; 80076; 80307; 81001; 82607; 82746; 83036; 84443; 85025; 87635; 93005; 99285

== ENCOUNTER 2021-11-16 09:28 | Outpatient (REF) | payer OTHER, SELFPAY ==
[2021-11-16 11:16] LABS: MANUAL DIFF FLAG NO
[2021-11-16 11:29] LABS: Basophils Absolute Auto 0.1 X10*3/uL (0.0-0.2); Basophils Percent Auto 0.8 % (0-2); Eosinophils Absolute Auto 0.1 X10*3/uL (0.0-0.4); Eosinophils Percent Auto 1.7 % (0-4); Hematocrit 45.5 % (42.0-52.0); Hemoglobin 15.8 g/dl (14.0-18.0); Imm Gran Abs Auto 0.01 X10*3/uL (0.00-0.03); Imm Gran Pct Auto 0.2 % (0.0-0.4); Lymphocytes Absolute Auto 1.4 X10*3/uL (1.2-4.9); Lymphocytes Percent Auto 22.4 % (20-40); Mean Corpuscular HGB Conc 34.7 g/dl (31.0-36.0); Mean Corpuscular Hemoglobin 31.5 pg (27.0-33.0); Mean Corpuscular Volume 90.8 fL (80.0-98.0); Mean Platelet Volume 9.8 fL (9.4-12.4); Monocytes Absolute Auto 0.6 X10*3/uL (0.1-1.2); Monocytes Percent Auto 8.7 % (2-11); Neutrophils Absolute Auto 4.2 x10*3/uL (2.0-8.3); Neutrophils Percent Auto 66.2 % (45-73); Platelet Count 263 X10*3/uL (160-400); Red Blood Count 5.01 X10*6/uL (4.60-5.80); Red Cell Distribution Width 12.1 % (11.0-16.0); White Blood Count 6.3 X10*3/uL (4.8-10.8)
[2021-11-16 11:52] LABS: Alanine Aminotransferase 22 U/L (0-40); Albumin Level 4.4 g/dL (3.5-5.0); Alkaline Phosphatase 104 U/L (39-117); Anion Gap 14 (12-20); Aspartate Amino Transferase 17 U/L (5-37); Bilirubin Total 0.3 mg/dL (0.0-1.0); Blood Urea Nitrogen 15 mg/dL (9-16); Calcium 9.7 mg/dL (8.4-10.2); Carbon Dioxide 29 mmol/L (22-29); Chloride 102 mmol/L (96-108); Cholesterol 223 mg/dL; Estimated Glomerular Filt Rate > 60; Glucose Fasting 93 mg/dL (60-99); HDL Cholesterol 59 mg/dL; LDL Cholesterol Calculated 128 mg/dl; Potassium 3.9 mmol/L (3.3-5.1); Sodium 141 mmol/L (135-145); Total Protein 7.3 g/dL (6.5-8.0); Triglycerides 181 mg/dL
[2021-11-16 12:03] LABS: TSH reflex Free T4 1.21 uIU/mL (0.32-4.0)
[2021-11-16 12:45] LABS: Appearance Urine CLEAR; Color Urine YELLOW; Glucose Urine UA NEG (NEG); Leukocyte Esterase Urine NEG (NEG); Nitrite Urine NEG (NEG); Specific Gravity - Urine 1.015 (1.005-1.025); Urine Blood NEG (NEG); Urine Ketones NEG (NEG); Urine Protein NEG (NEG-TRACE)
[2021-11-16 12:59] LABS: Creatinine Urine 69.84 mg/dL; Microalbumin Urine < 5.0 mg/L
== END 2021-11-16 09:29 | disposition home or self-care (01) ==
LOC: HO.WFDLDS 09:28
PROVIDERS: Visit Provider Family Medicine
DX: Z00.00 Encounter for general adult medical examination without abnormal findings (principal); Z12.5 Encounter for screening for malignant neoplasm of prostate; I10 Essential (primary) hypertension
CPT/HCPCS: 36415; 80053; 80061; 81003; 82043; 84153; 84443; 85025

== ENCOUNTER 2022-12-12 09:26 | Outpatient (REF) | payer OTHER, SELFPAY ==
[2022-12-12 11:41] LABS: MANUAL DIFF FLAG NO
[2022-12-12 11:49] LABS: Basophils Absolute Auto 0.1 X10*3/uL (0.0-0.2); Basophils Percent Auto 0.8 % (0-2); Eosinophils Absolute Auto 0.2 X10*3/uL (0.0-0.4); Eosinophils Percent Auto 2.9 % (0-4); Hematocrit 45.5 % (42.0-52.0); Hemoglobin 16.2 g/dl (14.0-18.0); Imm Gran Abs Auto 0.03 X10*3/uL (0.00-0.03); Imm Gran Pct Auto 0.5 % (0.0-0.4); Lymphocytes Absolute Auto 1.7 X10*3/uL (1.2-4.9); Lymphocytes Percent Auto 27.3 % (20-40); Mean Corpuscular HGB Conc 35.6 g/dl (31.0-36.0); Mean Corpuscular Volume 89.7 fL (80.0-98.0); Mean Platelet Volume 10.2 fL (9.4-12.4); Monocytes Absolute Auto 0.5 X10*3/uL (0.1-1.2); Monocytes Percent Auto 7.2 % (2-11); Neutrophils Absolute Auto 3.8 x10*3/uL (2.0-8.3); Neutrophils Percent Auto 61.3 % (45-73); Platelet Count 266 X10*3/uL (160-400); Red Blood Count 5.07 X10*6/uL (4.60-5.80); Red Cell Distribution Width 12.8 % (11.0-16.0); White Blood Count 6.2 X10*3/uL (4.8-10.8)
[2022-12-12 12:11] LABS: Estimated Average Glucose 103 mg/dL; Hemoglobin A1c % 5.2 %
[2022-12-12 12:22] LABS: Appearance Urine Clear; Color Urine Yellow; Glucose Urine UA Negative (Negative); Leukocyte Esterase Urine Negative (Negative); Nitrite Urine Negative (Negative); Urine Blood Negative (Negative); Urine Ketones Negative (Negative); Urine Protein Negative (Neg-Trace)
[2022-12-12 12:34] LABS: Alanine Aminotransferase 24 U/L (0-40); Albumin Level 4.5 g/dL (3.5-5.0); Alkaline Phosphatase 103 U/L (39-117); Anion Gap 13 (12-20); Aspartate Amino Transferase 22 U/L (5-37); Bilirubin Total 0.7 mg/dL (0.0-1.0); Blood Urea Nitrogen 13 mg/dL (9-16); Calcium 9.5 mg/dL (8.4-10.2); Carbon Dioxide 28 mmol/L (22-29); Chloride 103 mmol/L (96-108); Cholesterol 276 mg/dL; Estimated Glomerular Filt Rate > 60; Glucose Fasting 84 mg/dL (60-99); HDL Cholesterol 76 mg/dL; LDL Cholesterol Calculated 175 mg/dl; Potassium 3.6 mmol/L (3.3-5.1); Sodium 140 mmol/L (135-145); Total Protein 7.2 g/dL (6.5-8.0); Triglycerides 125 mg/dL
[2022-12-12 12:43] LABS: Prostate Specific Antigen Scr 4.09 ng/mL (<0.05-4.0); TSH reflex Free T4 1.29 uIU/mL (0.32-4.0)
[2022-12-12 13:36] LABS: Creatinine Urine 115.91 mg/dL
== END 2022-12-12 09:27 | disposition home or self-care (01) ==
LOC: HO.WFDLDS 09:26
PROVIDERS: Visit Provider Family Medicine
DX: Z00.00 Encounter for general adult medical examination without abnormal findings (principal); R73.01 Impaired fasting glucose; I10 Essential (primary) hypertension; Z12.5 Encounter for screening for malignant neoplasm of prostate
CPT/HCPCS: 36415; 80053; 80061; 81003; 82043; 83036; 84153; 84443; 85025

== ENCOUNTER 2023-01-30 12:22 | Outpatient (REF) | payer OTHER, SELFPAY ==
[2023-01-30 15:27] LABS: Anion Gap 14 (12-20); Blood Urea Nitrogen 14 mg/dL (9-16); Calcium 10.1 mg/dL (8.4-10.2); Carbon Dioxide 29 mmol/L (22-29); Chloride 103 mmol/L (96-108); Cholesterol 216 mg/dL; Estimated Glomerular Filt Rate > 60; Glucose Random 93 mg/dL (60-115); HDL Cholesterol 64 mg/dL; LDL Cholesterol Calculated 130 mg/dl; Potassium 3.7 mmol/L (3.3-5.1); Sodium 142 mmol/L (135-145); Triglycerides 112 mg/dL
[2023-01-30 15:59] LABS: PSA,Total (Free>4and<10) 4.11 ng/mL (0.00-4.00)
[2023-02-04 12:39] LABS: Free Prostate Spec Ag 0.7 ng/mL; Percent Free Prostate Spec Ag 18 % (calc) (>25); Prostate Specific Ag Total 3.9 ng/mL (< OR = 4.0)
== END 2023-01-30 12:23 | disposition home or self-care (01) ==
LOC: HO.LAB 12:22
PROVIDERS: PCP Family Medicine; Visit Provider Nurse Practitioner Family
DX: Z00.00 Encounter for general adult medical examination without abnormal findings (principal); E78.5 Hyperlipidemia, unspecified; R97.20 Elevated prostate specific antigen [PSA]; Z79.899 Other long term (current) drug therapy
CPT/HCPCS: 36415; 80048; 80061; 84153; 84154; 99202

== ENCOUNTER 2023-02-08 09:13 | Outpatient (REF) | payer OTHER, SELFPAY ==
--- NOTE | ~2023-02-08 | US_ITS ---
EXAMINATION: US RETROPERITONEAL COMPLETE (RENAL) CLINICAL INFORMATION: Elevated prostate specific antigen. COMPARISON: None available. TECHNIQUE: Real-time imaging of the kidneys and bladder. FINDINGS: RIGHT KIDNEY: 12.1 x 5.5 x 6.0 cm (SAG x AP x TRV). The kidney is normal in size, contour, and echogenicity. Renal cortical thickness is normal. Several nonobstructing calculi are noted within the right kidney, largest measuring approximately 1.3 cm. There is no hydronephrosis. LEFT KIDNEY: 12.5 x 4.2 x 5.3 cm (SAG x AP x TRV). The kidney is normal in size, contour, and echogenicity. Renal cortical thickness is normal. No calculi or focal parenchymal lesions. No hydronephrosis. BLADDER: Well distended and normal. Bilateral ureteral jets are demonstrated. Prevoid bladder volume is 289 mL. Postvoid bladder volume is 208 mL. Prostate gland is enlarged and results in mass effect on the posterior bladder wall. US/US retroperitoneal comp IMPRESSION: 1. Several nonobstructing calculi of the right kidney. No hydronephrosis. 2. Prominent post void bladder residual of 208 mL. 3. Enlarged prostate gland.
== END 2023-02-08 09:14 | disposition home or self-care (01) ==
LOC: HO.US 09:13
PROVIDERS: PCP Family Medicine; Visit Provider Nurse Practitioner Family
DX: R97.20 Elevated prostate specific antigen [PSA] (principal)
CPT/HCPCS: 76770

== ENCOUNTER → 2023-02-22 09:22 | Outpatient (BNVA) | payer OTHER, SELFPAY | PROVIDERS: PCP Family Medicine; Visit Provider Nurse Practitioner Family | DX: N20.0 Calculus of kidney (principal); N40.0 Benign prostatic hyperplasia without lower urinary tract symptoms; R97.20 Elevated prostate specific antigen [PSA] | CPT/HCPCS: 99212 ==

== ENCOUNTER 2023-03-27 09:17 | Outpatient (REF) | payer OTHER, SELFPAY ==
--- NOTE | ~2023-03-27 | CT_ITS ---
EXAMINATION: CT KIDNEY STONE CLINICAL INFORMATION: Calculus of kidney. COMPARISON: Ultrasound retroperitoneum 02/08/2023. TECHNIQUE: 5 mm thin axial and reformatted 3 mm thin sagittal and coronal images of the abdomen pelvis were obtained without contrast. This CT examination was performed using dose optimization technique as appropriate, variously including the following: Automated exposure control Adjustment of MA and/or KV according to patient size(this includes techniques or standardized protocols for targeted exams where dose is matched to indication/reason for exam; extremities or head. Use of iterative reconstruction techniques. DLP: 558 mGy-cm FINDINGS: LUNG BASES: The lung bases are clear. The heart size is normal. Small to moderate-sized hiatal hernia is noted. LIVER, DUCTS AND GALLBLADDER: The liver is homogeneous in density, normal in size and contour. No focal lesion or intrahepatic ductal dilatation is seen. SPLEEN: Unremarkable. PANCREAS: Unremarkable. ADRENAL GLANDS: Unremarkable. KIDNEYS AND URETERS: Both kidneys are normal size, shape and position. There is a 1 cm bilobed, nonobstructive radiopaque calculus in the mid pole of the right kidney approximately 10.4 cm from the right posterior skin line. There is no caliectasis. No additional radiopaque calculi are seen. There is no hydroureteronephrosis. No left renal calculi are seen. There is no perinephric stranding either. ABDOMINAL WALL: Unremarkable. GI TRACT: Minimal scattered stool is seen in the right colon. The rest the colon the small bowel loops are normal caliber. The stomach is nondistended. Appendix is not visualized with certainty. Small to moderate-sized hiatal hernia is noted. PELVIS: The urinary bladder is nondistended. The prostate gland is normal size. No abnormal-sized pelvic or inguinal lymph nodes are seen. OSSEOUS STRUCTURES: No aggressive lytic or sclerotic process is seen. There is moderate ventral spondylosis of the lower dorsal and upper lumbar spine. Mild wedge deformity of the L1 vertebra is noted, likely chronic. Small to moderate-sized superior endplate Schmorl nodes seen at the L3 vertebra. CT/CT kidney stone IMPRESSION: Nonobstructive 1 cm bilobed, radiopaque calculus in the mid pole of the right kidney without caliectasis or hydronephrosis. No additional renal calculi are seen.
== END 2023-03-27 09:18 | disposition home or self-care (01) ==
LOC: HO.CT 09:17
PROVIDERS: PCP Family Medicine; Visit Provider Nurse Practitioner Family
DX: N20.0 Calculus of kidney (principal)
CPT/HCPCS: 74176

== ENCOUNTER 2023-04-08 09:27 | Outpatient (AMB) | payer OTHER, SELFPAY ==
--- NOTE | 2023-04-08 09:45 | A.OFFVIS_ITS ---
Intake Intake Visit Reasons: 1m/CT(set) Intake Note: Patient presents for follow up CT scan/nephrolithiasis/BPH (imaging 03/27) Urology Medications: finasteride Blood Thinner: none Manager Film Required: No Accompanied by: Self / Same As Patient Allergies No Known Allergies Allergy (Verified 04/08/23 14:51) Medication List - Last Reconciled 04/08/23 by SEAN Mohamud-FLACA atorvastatin 40 mg PO BEDTIME 90 days cholecalciferol (vitamin D3) (Vitamin D3) 25 mcg PO DAILY 90 days clonidine HCl 0.1 mg PO BID PRN 90 days finasteride 5 mg PO DAILY 90 days hydrochlorothiazide 25 mg See Protocol PO DAILY hydroxyzine pamoate 50 mg PO BID PRN olanzapine 15 mg PO QPM pantoprazole 40 mg PO DAILY 90 days phenytoin sodium extended (Phenytek) 300 mg PO DAILY 30 days trazodone 100 mg PO BEDTIME trazodone 100 mg PO BEDTIME PRN HPI HPI Comments History of Present Illness Details Ritchie is a pleasant 52 year old male patient of Dr. Tse. He has a PMH of alcohol use disorder, moderate, in sustained remission, dependence, crack cocaine use, Epilepsy, HTN, and TBI. Of note, patient was seen approximately 6 weeks ago at which time he was started on Finasteride for PSA's as follows: 12/23--4.1 01/22--4.1 percent free PSA 18% Retroperitoneal ultrasound was ordered and prostate gland was noted to be enlarged and prostate measuring approximately 140 mL. However, 1.3 right renal nonobstructing calculi noted at which time a CT KUB was ordered for further assessment evaluation. These results were reviewed with the patient today. There is a 1 cm bilobed, nonobstructive calculus in the midpole of the right kidney. There is no hydronephrosis noted. The left kidney with no calculi noted. Discussed surveillance monitoring of nephrolithiasis versus surgical intervention given patient with no symptoms or issues at this time. Discussed risks and benefits of both asformentioned interventions. When asked patient reports compliance with Finasteride daily. He denies incontinence, nocturia, hematuria, dysuria, foul smelling urine, changes to urinary stream, flank pain, fever, and or chills. He is happy with his current voiding parameters. Discussed risks and benefits of prostate biopsy versus surveillance monitoring verses continuation of finasteride. Discussed/asked if able to call his mother for further education and discussion of plan of care however patient declines at this time. He reports to call his mother to be able to get a hold of the patient as he does not have a phone he otherwise discusses himself to manage his own care. He discusses he takes care of himself and lives in residential in [place] and does not wish me to talk to anyone as he states he understands information provided. He denies any known family history of prostate cancer. In office urinalysis results reviewed with the patient today. Patient provides his mom (Makenna) phone number to call with surgical information at [phone]. He otherwise offers no issues or concerns at this time. [facility] Medical History Alcohol use disorder, moderate, in sustained remission, dependence Crack cocaine use Epilepsy HTN (hypertension) TBI (traumatic brain injury) Family History Mother Substance abuse Social History Household Members: None Housing: Homeless Do you presently have visiting nurse or other home services: No Patient Tobacco Use Status: Never used Tobacco e-Cigarette/Vaping Use: Never Used Second Hand Smoke Exposure: No Substance Use Type: Former Substance User service: No Current occupational status: unemployed Current occupational exposures/hazards: No Sexual orientation: did not discuss. Cognitive needs: No Hearing needs: No Vision needs: No Review of Systems Const Reports as per HPI Eyes Reports no additional complaints ENT Reports no additional complaints Card Reports as per HPI Resp Reports no additional complaints GI Reports no additional complaints Reports as per HPI Musc Reports no additional complaints Neuro Reports as per HPI Psych Reports as per HPI Endo Reports no additional complaints Bandar/Lymph Reports no additional complaints Aller/Immun Reports no additional complaints Physical Exam Const General: cooperative, comfortable, no acute distress, well developed, alert and awake Orientation/consciousness: patient oriented x3 Limitations: no limitations HEENT Head: Yes normal to inspection, Yes normocephalic and Yes atraumatic Ears: hearing grossly normal bilaterally Eyes General: appearance normal, both eyes and all related structures Neck Neck: Yes normal visual inspection and Yes trachea midline Chest Chest palpation & inspection: normal inspection of the chest Resp Effort & Inspection: normal respiratory effort and able to speak in complete sentences Cardio Rate: regular rate GI Inspection: Yes normal to inspection Rectal Exam - Male: Yes deferred General: Yes no CVA tenderness Back/Spine/Pelvis Back: no CVA tenderness Skin General skin exam: no rashes or lesions noted Neuro General: patient oriented x3 Extrem General: Yes normal to inspection Psych Appearance: grossly normal and well kempt Mental Status: other (slow to respond ) Speech and movement: Normal speech and movement present and Clear speech present Affect: Other affect and mood findings present (flat ) Attitude: cooperative Thought content: Normal thought content present Results AMB Urinalysis, Automated UA Leukoctes 0 Wendy/uL Last Edit by [facility] on 04/08/23 10:06 UA Nitrite Last Edit by [facility] on 04/08/23 10:06 UA Urobilinogen 0.2 mg/dL Last Edit by [facility] on 04/08/23 10:06 UA Protein 0 mg/dL Last Edit by [facility] on 04/08/23 10:06 UA pH 7.5 Last Edit by [facility] on 04/08/23 10:06 UA Blood 0 Steve/uL Last Edit by [facility] on 04/08/23 10:06 UA Specific Walton 1.010 Last Edit by [facility] on 04/08/23 10:06 UA Ketone Last Edit by [facility] on 04/08/23 10:06 UA Bilirubin 0 mg/dL Last Edit by [facility] on 04/08/23 10:06 UA Glucose 0 mg/dL Last Edit by [facility] on 04/08/23 10:06 Results Reviewed Results Reviewed: Laboratory Last Values Urine pH (Auto) 7.5 04/08/23 09:51 Specific Walton (Auto) 1.010 04/08/23 09:51 Urine Protein (Auto) 0 mg/dL 04/08/23 09:51 Glucose (UA)(Auto) 0 mg/dL 04/08/23 09:51 Urine Blood (Auto) 0 Steve/uL 04/08/23 09:51 Urine Bilirubin (Auto) 0 mg/dL 04/08/23 09:51 Urine Urobilinogen (Auto) 0.2 mg/dL 04/08/23 09:51 Leukocyte Esterase (Auto) 0 Wendy/uL 04/08/23 09:51 Date of Service: 03/27/23 Procedure(s): CT kidney stone FINDINGS: LUNG BASES: The lung bases are clear. The heart size is normal. Small to moderate-sized hiatal hernia is noted. LIVER, DUCTS AND GALLBLADDER: The liver is homogeneous in density, normal in size and contour. No focal lesion or intrahepatic ductal dilatation is seen. SPLEEN: Unremarkable. PANCREAS: Unremarkable. ADRENAL GLANDS: Unremarkable. KIDNEYS AND URETERS: Both kidneys are normal size, shape and position. There is a 1 cm bilobed, nonobstructive radiopaque calculus in the mid pole of the right kidney approximately 10.4 cm from the right posterior skin line. There is no caliectasis. No additional radiopaque calculi are seen. There is no hydroureteronephrosis. No left renal calculi are seen. There is no perinephric stranding either. ABDOMINAL WALL: Unremarkable. GI TRACT: Minimal scattered stool is seen in the right colon. The rest the colon the small bowel loops are normal caliber. The stomach is nondistended. Appendix is not visualized with certainty. Small to moderate-sized hiatal hernia is noted. PELVIS: The urinary bladder is nondistended. The prostate gland is normal size. No abnormal-sized pelvic or inguinal lymph nodes are seen. OSSEOUS STRUCTURES: No aggressive lytic or sclerotic process is seen. There is moderate ventral spondylosis of the lower dorsal and upper lumbar spine. Mild wedge deformity of the L1 vertebra is noted, likely chronic. Small to moderate-sized superior endplate Schmorl nodes seen at the L3 vertebra. IMPRESSION: Nonobstructive 1 cm bilobed, radiopaque calculus in the mid pole of the right kidney without caliectasis or hydronephrosis. No additional renal calculi are seen. Assessment & Plan Assessment & Plan (1) Enlarged prostate: Code(s): N40.0 - Benign prostatic hyperplasia without lower urinary tract symptoms (2) Elevated PSA: Code(s): R97.20 - Elevated prostate specific antigen [PSA] Plan In office urinalysis results reviewed with the patient today; as noted above. Discussed recent CT KUB results with the patient today; as noted above. Discussed surveillance monitoring versus surgical intervention; discussed risks and benefits at length of surveillance monitoring versus surgical intervention. Will continue with surveillance imaging. All questions were answered Patient education pamphlet provided regarding nephrolithaisis (ESWL and ureteroscopy) Educated on the importance of drinking plenty of water daily Discussed near future nephrolithiasis work up. Continue finasteride as discussed. PSA in 3 months Follow up in 3 months with lab to be completed prior; or sooner with any issues, concerns, and or questions. Orders: Orders PSA,Total (Free>4and<10) 3 Months N40.0 - Benign prostatic hyperplasia without lower urinary tract symptoms, R97.20 - Elevated prostate specific antigen [PSA] AMB Urinalysis Automated 04/08/23 Z13.9 - Encounter for screening, unspecified Patient Instructions: The patient had an opportunity to ask questions regarding the treatment plan. All questions were answered. Physical exam, labs, and imaging were discussed and reviewed in detail. As well as risks, benefits, and discussion of treatment choices. No major barriers to understanding were identified. The patient expressed understanding and agreement with the above treatment plan. The patient was made aware they should contact our office by phone for worsening of their current condition, the appearance of new symptoms, or with any questions or concerns. Compliance is encouraged with any medications and follow up testing that is ordered. It is a privilege to be allowed the opportunity to participate in? your urological care.? Again, if you have any questions or concerns If you have any questions or concerns please do not hesitate to contact me. The office is [phone]. This note is constructed using voice recognition software. While every effort has been made to ensure accuracy maintenance supervisor 2nd shift errors may have been included. Yours sincerely, ISHMAEL Mohamud Coding Level of Care Code Est Pt Level 4 (12301) Diagnoses Enlarged prostate N40.0 Elevated PSA R97.20 Time Spent (min) 40
== END 2023-04-08 11:12 | disposition home or self-care (01) ==
PROVIDERS: PCP Family Medicine; Visit Provider Nurse Practitioner Family
DX: N40.0 Benign prostatic hyperplasia without lower urinary tract symptoms (principal); R97.20 Elevated prostate specific antigen [PSA]
CPT/HCPCS: 99214

== ENCOUNTER → 2023-04-08 09:27 | Outpatient (BNVA) | payer OTHER, SELFPAY | PROVIDERS: PCP Family Medicine; Visit Provider Nurse Practitioner Family | DX: N40.0 Benign prostatic hyperplasia without lower urinary tract symptoms (principal); R97.20 Elevated prostate specific antigen [PSA]; F10.21 Alcohol dependence, in remission; F14.20 Cocaine dependence, uncomplicated; Z79.899 Other long term (current) drug therapy | CPT/HCPCS: 99212 ==

== ENCOUNTER 2023-04-15 09:00 | Outpatient (AMB) | payer OTHER, SELFPAY ==
[2023-04-15 09:08] VITALS: BP 132/80; PULSE 68; O2SAT 96; BMI 33.0
--- NOTE | 2023-04-15 09:08 | MHC.PC.OV ---
Vital Signs 04/15/23 09:08 Height 5 ft 9 in Weight 223 lb 6 oz BMI 33.0 BP 132/80 Blood Pressure Location Lt brachial Position Sitting Pulse 68 Pulse Source Pulse Oximeter Pulse Oximetry (%) 96 Oxygen Delivery Method Room Air Intake Visit Reasons: f/u hyperlipidemia Intake Note: Patient is here to follow up on cholesterol. Patient also needs refill on some meds. Allergies No Known Allergies Allergy (Verified 04/15/23 09:10) Medication List - Last Reconciled 04/15/23 by Balaji Tse MD atorvastatin 40 mg PO BEDTIME 90 days clonidine HCl 0.1 mg PO BID PRN 90 days finasteride 5 mg PO DAILY 90 days hydrochlorothiazide 25 mg See Protocol PO DAILY hydroxyzine pamoate 50 mg PO BID PRN olanzapine 15 mg PO QPM pantoprazole 40 mg PO DAILY 90 days phenytoin sodium extended (Phenytek) 300 mg PO DAILY 30 days trazodone 100 mg PO BEDTIME trazodone 100 mg PO BEDTIME PRN Tobacco use date assessed: 04/15/23 Dental Screening Dental Screen Date: 04/15/23 Did you have a dental visit in the last 12 months?: No Did you have a dental problem in the last 6 months where you did not have access to dental care?: No Was dental information given to patient?: No HPI f/u hyperlipidemia HPI Details 52 y/o male presents to f/u HLD. Had increased his artovastatin from 10mg daily to 40mg daily. Lipid panel drawn 01/30/23. Reviewed labs with pt. Triglycerides 112. TC 216. LDL imporved 175 to 130. HDL 64. PFSH Medical History Alcohol use disorder, moderate, in sustained remission, dependence Crack cocaine use Epilepsy HTN (hypertension) TBI (traumatic brain injury) Family History Mother Substance abuse Social History Household Members: None Housing: Homeless Do you presently have visiting nurse or other home services: No Patient Tobacco Use Status: Former Tobacco user e-Cigarette/Vaping Use: Never Used Second Hand Smoke Exposure: No Substance Use Type: Former Substance User service: No Current occupational status: unemployed Current occupational exposures/hazards: No Sexual orientation: did not discuss. Cognitive needs: No Hearing needs: No Vision needs: No Questionnaire Thrive Questionnaire Date Thrive assessed: 09/19/22 JAMES-7 AMB Questionnaire JAMES-7 Date JAMES - 7 assessed: 09/19/22 Source: Developed by Drs. Holger Brumfield, Ria Cruz, Roger Alejo and colleagues, with an educational tamar from [employer]. Review of Systems Const Denies chills, Denies fatigue, Denies fever(s), Denies headache(s) and Denies weakness ENT Denies dizziness and Denies headache(s) Card Denies chest pain, Denies lightheadedness, Denies dyspnea and Denies other (Palpitations) Resp Denies cough, Denies dyspnea, Denies wheezing and Denies other ( shortness of breath) Musc Denies numbness and Denies tingling Neuro Denies dizziness, Denies headache(s), Denies numbness, Denies tingling, Denies paresthesias and Denies weakness Psych Denies anxiety and Denies depression Endo Denies fatigue Aller/Immun Denies wheezing Physical exam (Primary Care) Vital Signs: Last Vital Signs Pulse 68 04/15/23 09:08 BP 132/80 04/15/23 09:08 Pulse Ox 96 04/15/23 09:08 Oxygen Delivery Method Room Air 04/15/23 09:08 BMI result Body Mass Index 33.0 Tobacco/Smoking Status: Tobacco use Status Tobacco use date assessed 04/15/23 04/15/23 09:16 Patient Tobacco Use Status Former Tobacco user 04/15/23 09:16 e-Cigarette/Vaping Use Never Used 04/15/23 09:09 Thrive Assessment: Date of Thrive Assessment Date Thrive assessed 09/19/22 04/15/23 09:09 Const General: no acute distress and well developed Nutritional Appearance: well nourished Orientation/consciousness: patient oriented x3 HENMT Head: Yes normocephalic and Yes atraumatic Eyes General: appearance normal, both eyes and all related structures Pupils: Equal, round and reactive pupils present EOM: EOMs intact bilaterally Resp Effort & Inspection: normal respiratory effort Auscultation: clear to auscultation bilaterally Cardio Rate: regular rate Rhythm: regular rhythm Heart sounds: S1 normal heart sound present, S2 normal heart sound present, no gallops, no murmurs and no rubs Neuro General: patient oriented x3 and gait normal Cranial nerves: Yes Equal, round and reactive pupils present Psych Affect: normal affect Assessment and Plan Assessment & Plan (1) Hyperlipidemia: Code(s): E78.5 - Hyperlipidemia, unspecified Plan: Lipids much improved and LDL cholesterol essentially at goal of less than 130. Also HDL ratios are good Continue atorvastatin 40 mg daily and work at a diet lower in saturated fats and cholesterol. Also encouraged exercise and weight loss. (2) Enlarged prostate: Code(s): N40.0 - Benign prostatic hyperplasia without lower urinary tract symptoms Plan: Now followed by urology Continue finasteride Follow-up with urology as recommended Medications: Refilled atorvastatin 40 mg PO BEDTIME 90 tabs 4RF 90 days Coding Level of Care Code Est Pt Level 3 (55888) Diagnoses Hyperlipidemia E78.5 Enlarged prostate N40.0
== END 2023-04-15 09:29 | disposition home or self-care (01) ==
PROVIDERS: Visit Provider Family Medicine
DX: E78.5 Hyperlipidemia, unspecified (principal); N40.0 Benign prostatic hyperplasia without lower urinary tract symptoms
CPT/HCPCS: 99213

== ENCOUNTER 2023-05-07 09:15 | Outpatient (REF) | payer OTHER, SELFPAY | END 2023-05-07 09:16 | disposition home or self-care (01) | LOC: HO.LAB 09:15 | PROVIDERS: PCP Family Medicine; Visit Provider Nurse Practitioner Family | DX: Z12.5 Encounter for screening for malignant neoplasm of prostate (principal); N40.0 Benign prostatic hyperplasia without lower urinary tract symptoms; R97.20 Elevated prostate specific antigen [PSA] | CPT/HCPCS: 36415; 84153 ==

== ENCOUNTER 2023-07-03 09:13 | Outpatient (REF) | payer OTHER, SELFPAY ==
[2023-07-03 09:30] LABS: MANUAL DIFF FLAG NO
[2023-07-03 10:14] LABS: Basophils Absolute Auto 0.1 X10*3/uL (0.0-0.2); Eosinophils Absolute Auto 0.2 X10*3/uL (0.0-0.4); Hemoglobin 15.1 g/dl (14.0-18.0); Imm Gran Abs Auto 0.03 X10*3/uL (0.00-0.03); Imm Gran Pct Auto 0.5 % (0.0-0.4); Lymphocytes Absolute Auto 1.8 X10*3/uL (1.2-4.9); Lymphocytes Percent Auto 28.7 % (20-40); Mean Corpuscular HGB Conc 35.1 g/dl (31.0-36.0); Mean Corpuscular Hemoglobin 31.2 pg (27.0-33.0); Mean Corpuscular Volume 88.8 fL (80.0-98.0); Mean Platelet Volume 9.7 fL (9.4-12.4); Monocytes Absolute Auto 0.5 X10*3/uL (0.1-1.2); Monocytes Percent Auto 8.3 % (2-11); Neutrophils Absolute Auto 3.7 x10*3/uL (2.0-8.3); Neutrophils Percent Auto 58.5 % (45-73); Platelet Count 208 X10*3/uL (160-400); Red Blood Count 4.84 X10*6/uL (4.60-5.80); Red Cell Distribution Width 12.1 % (11.0-16.0); White Blood Count 6.3 X10*3/uL (4.8-10.8)
[2023-07-03 10:23] LABS: Appearance Urine Turbid; Color Urine Yellow; Glucose Urine UA Negative (Negative); Leukocyte Esterase Urine Negative (Negative); Nitrite Urine Negative (Negative); PH 8.5 (5.0-9.0); Urine Blood Negative (Negative); Urine Ketones Negative (Negative); Urine Protein Trace mg/dL (Neg-Trace)
[2023-07-03 10:58] LABS: Alanine Aminotransferase 30 U/L (0-40); Albumin Level 4.3 g/dL (3.5-5.0); Alkaline Phosphatase 99 U/L (39-117); Anion Gap 12 (12-20); Aspartate Amino Transferase 27 U/L (5-37); Bilirubin Total 0.4 mg/dL (0.0-1.0); Blood Urea Nitrogen 11 mg/dL (9-16); Calcium 9.3 mg/dL (8.4-10.2); Carbon Dioxide 27 mmol/L (22-29); Chloride 106 mmol/L (96-108); Cholesterol 196 mg/dL (<200); Estimated Glomerular Filt Rate > 60; Glucose Fasting 90 mg/dL (60-99); HDL Cholesterol 69 mg/dL (>40); LDL Cholesterol Calculated 96 mg/dL (<100); Sodium 141 mmol/L (135-145); Total Protein 7.2 g/dL (6.5-8.0); Triglycerides 156 mg/dL (<150)
[2023-07-03 11:04] LABS: Prostate Specific Antigen Scr 3.26 ng/mL (<0.05-4.0)
[2023-07-03 11:07] LABS: Creatinine Urine 149.92 mg/dL; Microalbum/Creatinine Ratio Ur 5.3 ug/mg cr (<30)
[2023-07-03 11:07] LABS: TSH reflex Free T4 1.07 uIU/mL (0.32-4.0)
== END 2023-07-03 09:14 | disposition home or self-care (01) ==
LOC: HO.LAB 09:13
PROVIDERS: PCP Family Medicine; Visit Provider Nurse Practitioner Family
DX: Z00.00 Encounter for general adult medical examination without abnormal findings (principal); I10 Essential (primary) hypertension
CPT/HCPCS: 36415; 80053; 80061; 81003; 82043; 82570; 84153; 84443; 85025

== ENCOUNTER 2023-07-10 09:17 | Outpatient (AMB) | payer OTHER, SELFPAY ==
--- NOTE | 2023-07-10 09:26 | MHC.OFFVIS ---
Intake Intake Visit Reasons: 3m/PSA(set) Intake Note: Patient presents for follow up PSA labs (psa 3.26) Urology Medications: finasteride Blood Thinner: none Lock Installer Required: No Accompanied by: Self / Same As Patient Allergies No Known Allergies Allergy (Verified 07/10/23 09:54) Medication List - Last Reconciled 07/10/23 by ISHMAEL Mohamud atorvastatin 40 mg PO BEDTIME 90 days clonidine HCl 0.1 mg PO BID PRN 90 days finasteride 5 mg PO DAILY 90 days hydrochlorothiazide 25 mg See Protocol PO DAILY hydroxyzine pamoate 50 mg PO BID PRN olanzapine 20 mg PO BEDTIME pantoprazole 40 mg PO DAILY 90 days phenytoin sodium extended (Phenytek) 300 mg PO DAILY 30 days trazodone 100 mg PO BEDTIME trazodone 100 mg PO BEDTIME PRN HPI HPI Comments History of Present Illness Details Ritchie is a pleasant 52 year old male patient of Dr. Tse. He has a PMH of alcohol use disorder, moderate, in sustained remission, dependence, crack cocaine use, Epilepsy, HTN, and TBI. He presents to the office today for follow-up of his nephrolithiasis and elevated PSA. PSA's as follows: 12/23--4.1 01/22--4.1 percent free PSA 18% 05/25--3.8 07/25-3.3 Recent PSA results reviewed with the patient today. When asked patient reports compliance with finasteride 5 mg daily. Previous workup has included retroperitoneal ultrasound noting several nonobstructing calculi noted within the right kidney, largest measuring approximately 1.3 cm there is no hydronephrosis. Left kidney with no calculi, lesions, and or hydronephrosis. The bladder was well distended and normal. Bilateral ureteral jets are demonstrated. Pre void bladder volume is approximately 290 mL. Postvoid bladder volume is approximately 210 mL. Prostate gland is enlarged and results in mass effect on the posterior bladder wall. A CT KUB was then ordered for further assessment evaluation of nephrolithiasis. CT KUB noting a 1 cm bilobed, nonobstructive calculus in the midpole of the right kidney. There is no hydronephrosis noted. The left kidney with no calculi noted. Discussed surveillance monitoring of nephrolithiasis versus surgical intervention. Discussed risks and benefits of both asformentioned interventions. He denies incontinence, nocturia, hematuria, dysuria, foul smelling urine, changes to urinary stream, flank pain, fever, and or chills. He is happy with his current voiding parameters. Discussed risks and benefits of prostate biopsy versus surveillance monitoring verses continuation of finasteride. In office urinalysis results reviewed with the patient today. He otherwise offers no issues or concerns at this time. [facility] Medical History Crack cocaine use Alcohol use disorder, moderate, in sustained remission, dependence HTN (hypertension) TBI (traumatic brain injury) Epilepsy Family History Mother Substance abuse Social History Household Members: None Housing: Homeless Do you presently have visiting nurse or other home services: No Patient Tobacco Use Status: Former Tobacco user e-Cigarette/Vaping Use: Never Used Second Hand Smoke Exposure: No Substance Use Type: Former Substance User service: No Current occupational status: unemployed Current occupational exposures/hazards: No Sexual orientation: did not discuss. Cognitive needs: No Hearing needs: No Vision needs: No Review of Systems Const Reports as per HPI Eyes Reports no additional complaints ENT Reports no additional complaints Card Reports as per HPI Resp Reports no additional complaints GI Reports no additional complaints Reports as per HPI Musc Reports no additional complaints Neuro Reports as per HPI Psych Reports as per HPI Endo Reports no additional complaints Bandar/Lymph Reports no additional complaints Aller/Immun Reports no additional complaints Physical Exam Const General: cooperative, comfortable, no acute distress, well developed, alert and awake Orientation/consciousness: patient oriented x3 Limitations: no limitations HEENT Head: Yes normal to inspection, Yes normocephalic and Yes atraumatic Ears: hearing grossly normal bilaterally Eyes General: appearance normal, both eyes and all related structures Neck Neck: Yes normal visual inspection and Yes trachea midline Chest Chest palpation & inspection: normal inspection of the chest Resp Effort & Inspection: normal respiratory effort and able to speak in complete sentences Cardio Rate: regular rate GI Inspection: Yes normal to inspection Rectal Exam - Male: Yes deferred General: Yes no CVA tenderness Back/Spine/Pelvis Back: no CVA tenderness Skin General skin exam: no rashes or lesions noted Neuro General: patient oriented x3 Extrem General: Yes normal to inspection Psych Appearance: grossly normal and well kempt Mental Status: other (slow to respond ) Speech and movement: Normal speech and movement present and Clear speech present Affect: Other affect and mood findings present (flat ) Attitude: cooperative Thought content: Normal thought content present Results AMB Urinalysis, Automated UA Leukoctes 0 Wendy/uL Last Edit by [employer] on 07/10/23 09:44 UA Nitrite Negative Last Edit by [employer] on 07/10/23 09:44 UA Urobilinogen 0.2 mg/dL Last Edit by [employer] on 07/10/23 09:44 UA Protein 0 mg/dL Last Edit by [employer] on 07/10/23 09:44 UA pH 7.5 Last Edit by [employer] on 07/10/23 09:44 UA Blood 0 Steve/uL Last Edit by [employer] on 07/10/23 09:44 UA Specific [place] 1.010 Last Edit by [employer] on 07/10/23 09:44 UA Ketone Negative Last Edit by [employer] on 07/10/23 09:44 UA Bilirubin 0 mg/dL Last Edit by [employer] on 07/10/23 09:44 UA Glucose 0 mg/dL Last Edit by [employer] on 07/10/23 09:44 Results Reviewed Results Reviewed: Laboratory Last Values Urine pH (Auto) 7.5 07/10/23 09:35 Specific [place] (Auto) 1.010 07/10/23 09:35 Urine Protein (Auto) 0 mg/dL 07/10/23 09:35 Glucose (UA)(Auto) 0 mg/dL 07/10/23 09:35 Urine Ketones (Auto) Negative 07/10/23 09:35 Urine Blood (Auto) 0 Steve/uL 07/10/23 09:35 Urine Nitrite (Auto) Negative 07/10/23 09:35 Urine Bilirubin (Auto) 0 mg/dL 07/10/23 09:35 Urine Urobilinogen (Auto) 0.2 mg/dL 07/10/23 09:35 Leukocyte Esterase (Auto) 0 Wendy/uL 07/10/23 09:35 Assessment & Plan Assessment & Plan (1) Enlarged prostate: Code(s): N40.0 - Benign prostatic hyperplasia without lower urinary tract symptoms (2) Elevated PSA: Code(s): R97.20 - Elevated prostate specific antigen [PSA] (3) Nephrolithiasis: Code(s): N20.0 - Calculus of kidney Plan In office urinalysis results reviewed with the patient today; as noted above. Recent PSA results reviewed with the patient today; as noted above. Discussed surveillance monitoring versus surgical intervention regarding nephrolithiasis; discussed risks and benefits at length of surveillance monitoring versus surgical intervention. Will continue with surveillance imaging at this time All questions were answered. Patient education pamphlet provided regarding nephrolithaisis (ESWL and ureteroscopy) Educated on the importance of drinking plenty of water daily. Patient denies any bothersome urinary issues or concerns at this time. Patient reports be happy with current voiding parameters. Patient would like to continue with administration of finasteride 5 mg daily. PSA and KUB in 4 months for further assessment evaluation Follow up in 4 months with lab to be completed prior; or sooner with any issues, concerns, and or questions. Orders: Orders AMB Urinalysis Automated Today Z13.9 - Encounter for screening, unspecified Prostate Specific Antigen 4 Months N40.0 - Benign prostatic hyperplasia without lower urinary tract symptoms, R97.20 - Elevated prostate specific antigen [PSA] XR KUB 4 Months N20.0 - Calculus of kidney Medications: Refilled finasteride 5 mg PO DAILY 90 days 90 tabs 3RF N13.8 - Other obstructive and reflux uropathy, N40.1 - Benign prostatic hyperplasia with lower urinary tract symptoms, R33.9 - Retention of urine, unspecified Patient Instructions: The patient had an opportunity to ask questions regarding the treatment plan. All questions were answered. Physical exam, labs, and imaging were discussed and reviewed in detail. As well as risks, benefits, and discussion of treatment choices. No major barriers to understanding were identified. The patient expressed understanding and agreement with the above treatment plan. The patient was made aware they should contact our office by phone for worsening of their current condition, the appearance of new symptoms, or with any questions or concerns. Compliance is encouraged with any medications and follow up testing that is ordered. It is a privilege to be allowed the opportunity to participate in? your urological care.? Again, if you have any questions or concerns If you have any questions or concerns please do not hesitate to contact me. The office is [phone]. This note is constructed using voice recognition software. While every effort has been made to ensure accuracy transcribing operators supervisor errors may have been included. Yours sincerely, ISHMAEL Mohamud Coding Level of Care Code Est Pt Level 3 (00321) Diagnoses Enlarged prostate N40.0 Elevated PSA R97.20 Nephrolithiasis N20.0
== END 2023-07-10 10:02 | disposition home or self-care (01) ==
PROVIDERS: PCP Family Medicine; Visit Provider Nurse Practitioner Family
DX: N40.0 Benign prostatic hyperplasia without lower urinary tract symptoms (principal); R97.20 Elevated prostate specific antigen [PSA]; N20.0 Calculus of kidney; Z13.9 Encounter for screening, unspecified
CPT/HCPCS: 99213

== ENCOUNTER → 2023-07-10 09:17 | Outpatient (BNVA) | payer OTHER, SELFPAY | PROVIDERS: PCP Family Medicine; Visit Provider Nurse Practitioner Family | DX: N40.0 Benign prostatic hyperplasia without lower urinary tract symptoms (principal); N20.0 Calculus of kidney; R97.20 Elevated prostate specific antigen [PSA] | CPT/HCPCS: 81003; 99212 ==

== ENCOUNTER 2023-10-24 09:13 | Outpatient (REF) | payer OTHER, SELFPAY | END 2023-10-24 09:14 | disposition home or self-care (01) | LOC: HO.LAB 09:13 | PROVIDERS: Visit Provider Nurse Practitioner Family | DX: N40.0 Benign prostatic hyperplasia without lower urinary tract symptoms (principal); R97.20 Elevated prostate specific antigen [PSA] | CPT/HCPCS: 36415; 84153 ==

== ENCOUNTER 2023-11-05 09:16 | Outpatient (REF) | payer OTHER, SELFPAY ==
--- NOTE | ~2023-11-05 | XR_ITS ---
EXAMINATION: XR ABDOMEN KUB CLINICAL INDICATION: Renal calculus COMPARISON: CT abdomen from 03/27/2023 TECHNIQUE: AP view of the abdomen. FINDINGS: 3 views of the abdomen and pelvis revealed 0.7 cm stone in the expected location of right kidney. There is nonobstructive bowel gas pattern and no other calcifications seen. XR/XR KUB IMPRESSION: Stable right renal stone
== END 2023-11-05 09:17 | disposition home or self-care (01) ==
LOC: HO.XRAY 09:16
PROVIDERS: PCP Family Medicine; Visit Provider Nurse Practitioner Family
DX: N20.0 Calculus of kidney (principal)
CPT/HCPCS: 74018; 81003; 99212

== ENCOUNTER 2023-11-05 09:48 | Outpatient (AMB) | payer OTHER, SELFPAY ==
--- NOTE | 2023-11-05 10:44 | MHC.OFFVIS ---
Intake Intake Visit Reasons: 4m/PSA Intake Note: Patient presents for follow up PSA labs and KUB X-ray Imagin11/05/23 PSA: 3.20 Urology Medications: finasteride Blood Thinner: none Turbine Engineer Required: No Accompanied by: Self / Same As Patient Allergies No Known Allergies Allergy (Verified 11/05/23 13:52) Medication List - Last Reconciled 11/05/23 by SEAN Mohamud-FLACA atorvastatin 40 mg PO BEDTIME 90 days clonidine HCl 0.1 mg PO BID PRN 90 days finasteride 5 mg PO DAILY 90 days hydrochlorothiazide 25 mg See Protocol PO DAILY hydroxyzine pamoate 50 mg PO BID PRN olanzapine 20 mg PO BEDTIME pantoprazole 40 mg PO DAILY 90 days phenytoin sodium extended 300 mg (3 x 100 mg) PO DAILY 30 days trazodone 100 mg PO BEDTIME trazodone 100 mg PO BEDTIME PRN HPI HPI Comments History of Present Illness Details Ritchie is a pleasant 53 year old male patient of Dr. Tse. He has a PMH of alcohol use disorder, moderate, in sustained remission, dependence, crack cocaine use, Epilepsy, HTN, and TBI. He presents to the office today for follow-up of his nephrolithiasis and elevated PSA. PSA's as follows: 12/23--4.1 01/22--4.1 percent free PSA 18% 05/25--3.8 07/25-3.3 10/26--3.2 Recent PSA results reviewed with the patient today as noted and trended above. When asked patient reports compliance with finasteride 5 mg daily. Previous workup has included retroperitoneal ultrasound noting several nonobstructing calculi noted within the right kidney, largest measuring approximately 1.3 cm there is no hydronephrosis. Left kidney with no calculi, lesions, and or hydronephrosis. The bladder was well distended and normal. Bilateral ureteral jets are demonstrated. Pre void bladder volume is approximately 290 mL. Postvoid bladder volume is approximately 210 mL. Prostate gland is enlarged and results in mass effect on the posterior bladder wall. Prostate volume 138ml's. Recent KUB results reviewed with the patient today. 0.7 cm nonobstructing stone in the right kidney. Discussed surveillance monitoring of nephrolithiasis versus surgical intervention. Discussed risks and benefits of these interventions at length. When asked he denies urinary urgency, urinary frequency, incontinence, nocturia, hematuria, dysuria, foul smelling urine, changes to urinary stream, flank pain, fever, and or chills. He is happy with his current voiding parameters. Discussed risks and benefits of prostate biopsy versus prostate MRI versus surveillance monitoring verses continuation of finasteride. In office urinalysis results reviewed with the patient today. He otherwise offers no issues or concerns at this time. [facility] Medical History Crack cocaine use Alcohol use disorder, moderate, in sustained remission, dependence HTN (hypertension) TBI (traumatic brain injury) Epilepsy Family History Mother Substance abuse Social History Household Members: None Housing: Homeless Do you presently have visiting nurse or other home services: No Patient Tobacco Use Status: Former Tobacco user e-Cigarette/Vaping Use: Never Used Second Hand Smoke Exposure: No Substance Use Type: Former Substance User service: No Current occupational status: unemployed Current occupational exposures/hazards: No Sexual orientation: did not discuss. Cognitive needs: No Hearing needs: No Vision needs: No Review of Systems Const Reports as per HPI Eyes Reports no additional complaints ENT Reports no additional complaints Card Reports as per HPI Resp Reports no additional complaints GI Reports no additional complaints Reports as per HPI Musc Reports no additional complaints Neuro Reports as per HPI Psych Reports as per HPI Endo Reports no additional complaints Bandar/Lymph Reports no additional complaints Aller/Immun Reports no additional complaints Physical Exam Const General: cooperative, comfortable, no acute distress, well developed, alert and awake Orientation/consciousness: patient oriented x3 Limitations: no limitations HEENT Head: Yes normal to inspection, Yes normocephalic and Yes atraumatic Ears: hearing grossly normal bilaterally Eyes General: appearance normal, both eyes and all related structures Neck Neck: Yes normal visual inspection and Yes trachea midline Chest Chest palpation & inspection: normal inspection of the chest Resp Effort & Inspection: normal respiratory effort and able to speak in complete sentences Cardio Rate: regular rate GI Inspection: Yes normal to inspection Rectal Exam - Male: Yes deferred General: Yes no CVA tenderness Back/Spine/Pelvis Back: no CVA tenderness Skin General skin exam: no rashes or lesions noted Neuro General: patient oriented x3 Extrem General: Yes normal to inspection Psych Appearance: grossly normal and well kempt Mental Status: other (slow to respond ) Speech and movement: Normal speech and movement present and Clear speech present Affect: Other affect and mood findings present (flat ) Attitude: cooperative Thought content: Normal thought content present Results AMB Urinalysis, Automated UA Leukoctes 0 Wendy/uL Last Edit by [employer] on 11/05/23 11:03 UA Nitrite Negative Last Edit by [employer] on 11/05/23 11:03 UA Urobilinogen 0.2 mg/dL Last Edit by [employer] on 11/05/23 11:03 UA Protein 0 mg/dL Last Edit by [employer] on 11/05/23 11:03 UA pH 7.5 Last Edit by [employer] on 11/05/23 11:03 UA Blood 0 Steve/uL Last Edit by [employer] on 11/05/23 11:03 UA Specific [place] 1.015 Last Edit by [employer] on 11/05/23 11:03 UA Ketone Negative Last Edit by [employer] on 11/05/23 11:03 UA Bilirubin 0 mg/dL Last Edit by [employer] on 11/05/23 11:03 UA Glucose 0 mg/dL Last Edit by [employer] on 11/05/23 11:03 Results Reviewed Results Reviewed: Laboratory Last Values Urine pH (Auto) 7.5 11/05/23 10:51 Specific [place] (Auto) 1.015 11/05/23 10:51 Urine Protein (Auto) 0 mg/dL 11/05/23 10:51 Glucose (UA)(Auto) 0 mg/dL 11/05/23 10:51 Urine Ketones (Auto) Negative 11/05/23 10:51 Urine Blood (Auto) 0 Steve/uL 11/05/23 10:51 Urine Nitrite (Auto) Negative 11/05/23 10:51 Urine Bilirubin (Auto) 0 mg/dL 11/05/23 10:51 Urine Urobilinogen (Auto) 0.2 mg/dL 11/05/23 10:51 Leukocyte Esterase (Auto) 0 Wendy/uL 11/05/23 10:51 Date of Service: 11/05/23 EXAMINATION: XR ABDOMEN KUB FINDINGS: 3 views of the abdomen and pelvis revealed 0.7 cm stone in the expected location of right kidney. There is nonobstructive bowel gas pattern and no other calcifications seen. IMPRESSION: Stable right renal stone. Assessment & Plan Assessment & Plan (1) Enlarged prostate: Code(s): N40.0 - Benign prostatic hyperplasia without lower urinary tract symptoms (2) Elevated PSA: Code(s): R97.20 - Elevated prostate specific antigen [PSA] (3) Nephrolithiasis: Code(s): N20.0 - Calculus of kidney Plan: Plan Extracorporeal Shock Wave Lithotripsy We discussed the nature of the decision and reasonable alternatives for performing the above surgery. Interventions include chemical dissolution, ESWL, ureteroscopy with laser lithotripsy and stent placement, PCNL. ? Options such as medical therapy were discussed. The relative uncertainties and benefits related to each alternate procedure were adequately discussed. General surgical risks including, but not limited to, pain, bleeding, infection, myocardial infarction, pulmonary embolus, deep vein thrombosis and cerebrovascular accident which may result in further hospitalization were discussed.? Full disclosure of the procedure as well as all major risks, benefits and complications were discussed including but not limited to risks of bleeding, injury to the kidney with hematoma or madhavi-hematoma, failure to fragments stone, potential for ureteric obstruction from stone passage and need for secondary procedures.? There is a small long-term risk of hypertension and a question riddhi of diabetes.? Success rate of fragmentation and passage is approximately 70- 75%.? This is compared to the risks and benefits for ureteroscopy which has a higher success rate but is a more invasive procedure. The success rate of the procedure was discussed. Success of the procedure in the short-term does not necessarily guarantee that long-term success will be maintained. Suitable follow up will need to be maintained. The patient showed understanding of the discussion as well as the typical recovery time, and the outpatient nature of this procedure. Opportunity was given for questions. Repeat-back protocol used to confirm understanding. They wish to proceed with Right ESWL Plan In office urinalysis results reviewed with the patient today. PVR 72 mL. Recent PSA results reviewed with the patient today; as noted above. Discussed continuation of finasteride with surveillance monitoring of PSA verses prostate biopsy verses obtaining MRI of the prostate; this was discussed at length; risks and benefits of these interventions were discussed. Recent KUB results reviewed with the patient today. Discussed surveillance monitoring versus surgical intervention of nephrolithiasis; discussed risks and benefits of these interventions Patient currently denies any bothersome urinary issues or concerns. Is happy with current voiding parameters. Will continue with finasteride 5 mg daily; will obtain PSA in 4 months Will schedule for right-sided ESWL; as discussed Follow-up status post ESWL per doctor's orders; or sooner with any issues, concerns, and or questions. Orders: Orders AMB Urinalysis Automated 11/05/23 Z13.9 - Encounter for screening, unspecified Prostate Specific Antigen 4 Months N40.0 - Benign prostatic hyperplasia without lower urinary tract symptoms, R97.20 - Elevated prostate specific antigen [PSA] Patient Instructions: The patient had an opportunity to ask questions regarding the treatment plan. All questions were answered. Physical exam, labs, and imaging were discussed and reviewed in detail. As well as risks, benefits, and discussion of treatment choices. No major barriers to understanding were identified. The patient expressed understanding and agreement with the above treatment plan. The patient was made aware they should contact our office by phone for worsening of their current condition, the appearance of new symptoms, or with any questions or concerns. Compliance is encouraged with any medications and follow up testing that is ordered. It is a privilege to be allowed the opportunity to participate in? your urological care.? Again, if you have any questions or concerns If you have any questions or concerns please do not hesitate to contact me. The office is [phone]. This note is constructed using voice recognition software. While every effort has been made to ensure accuracy factorer errors may have been included. Yours sincerely, ISHMAEL Mohamud Coding Level of Care Code Est Pt Level 4 (85268) Diagnoses Enlarged prostate N40.0 Elevated PSA R97.20 Nephrolithiasis N20.0
== END 2023-11-05 11:39 | disposition home or self-care (01) ==
PROVIDERS: PCP Family Medicine; Visit Provider Nurse Practitioner Family
DX: N40.0 Benign prostatic hyperplasia without lower urinary tract symptoms (principal); R97.20 Elevated prostate specific antigen [PSA]; N20.0 Calculus of kidney
CPT/HCPCS: 99214

== ENCOUNTER 2023-12-17 08:45 | Outpatient (AMB) | payer OTHER, SELFPAY ==
[2023-12-17 08:50] VITALS: BP 130/80; PULSE 65; O2SAT 96; BMI 34.1
--- NOTE | 2023-12-17 08:50 | A.OFFPC_ITS ---
Vital Signs 12/17/23 08:50 Height 5 ft 9 in Weight 231 lb BMI 34.1 BP 130/80 Blood Pressure Location Rt brachial Position Sitting Pulse 65 Pulse Source Pulse Oximeter Pulse Oximetry (%) 96 Oxygen Delivery Method Room Air Intake Visit Reasons: CPE with f/u labs and health maintenance Intake Note: Patient is here for his physical today. Patient is requesting refills on his meds, he states he did let his pharmacy know. Allergies No Known Allergies Allergy (Verified 12/17/23 08:53) Medication List - Last Reconciled 12/17/23 by Balaji Tse MD atorvastatin 40 mg PO BEDTIME 90 days clonidine HCl 0.1 mg PO BID PRN 90 days finasteride 5 mg PO DAILY 90 days hydrochlorothiazide 25 mg See Protocol PO DAILY hydroxyzine pamoate 50 mg PO BID PRN pantoprazole 40 mg PO DAILY 90 days phenytoin sodium extended 300 mg (3 x 100 mg) PO DAILY 30 days Tobacco use date assessed: 12/17/23 Dental Screening Dental Screen Date: 12/17/23 Did you have a dental visit in the last 12 months?: No Did you have a dental problem in the last 6 months where you did not have access to dental care?: No Was dental information given to patient?: Patient declined HPI CPE with f/u labs and health maintenance HPI Details 53 y/o male presents for an extended exa m with f/u labs and health maintenance. No recent labs to review. Had recently went to the emergency department 11/26/23 for hallucinations. Hx of schizophrenia and normally takes zyprexa but had stopped it for a week. Has not seen a dentist in awhile. He states he eats a healthy diet. He walks for exercise. HPI Comments History of Present Illness Details Documentation assistance for Balaji Tse MD, was provided by Keith Echols, [employer] Laboratory Director on 12/17/2023 9:29 AM SHMUEL. Fern, Dr. Tse, have read, observed, and verified documentation. [facility] Medical History Crack cocaine use Alcohol use disorder, moderate, in sustained remission, dependence HTN (hypertension) TBI (traumatic brain injury) Epilepsy Family History Mother Substance abuse Social History Household Members: None Housing: Homeless Do you presently have visiting nurse or other home services: No Patient Tobacco Use Status: Former Tobacco user e-Cigarette/Vaping Use: Never Used Second Hand Smoke Exposure: No Substance Use Type: Former Substance User service: No Current occupational status: unemployed Current occupational exposures/hazards: No Sexual orientation: did not discuss. Cognitive needs: No Hearing needs: No Vision needs: No Questionnaire PHQ-9 Over the last 2 weeks, how often have you been bothered by any of the following problems? 1. Little interest or pleasure in doing things: not at all 2. Feeling down, depressed, or hopeless: not at all 3. Trouble falling or staying asleep, or sleeping too much: not at all 4. Feeling tired or having little energy: not at all 5. Poor appetite or overeating: not at all 6. Feeling bad about yourself - or that you are a failure or have let yourself or your family down: not at all 7. Trouble concentrating on things, such as reading the newspaper or watching television: not at all 8. Moving or speaking so slowly that other people could have noticed. Or the opposite - being so fidgety or restless that you have been moving around a lot more than usual: not at all 9. Thoughts that you would be better off or of hurting yourself in some way: not at all Total score: 0 Depression Screening Interpretation: Negative Depression Screening Done: Yes 85563 - PHQ-9 Billing: Yes Source: Developed by Drs. Holger Brumfield, Ria Cruz, Roger Alejo and colleagues, with an educational tamar from [employer]. Thrive Questionnaire Date Thrive assessed: 09/19/22 I am a: Patient What is your living situation today?: I do not have a steady places to live Within the past 12 months, did the food you bought not last and you didn't have the money to get more?: Never true Within the past 12 months, did you worry whether your food would run out before you got money to buy more?: Never true Do you have trouble paying for medicines?: No Do you have trouble getting transportation to medical appointments?: No Do you have trouble paying your heating and electricity bill?: No Do you have trouble taking care of your child, family member or friend?: No Do you have trouble with day-to-day activities such as bathing, preparing meals, shopping, managing finances, etc.?: No Are you currently unemployed and looking for a job?: No Are you interested in more education?: No THRIVE Score: 1 AUDIT C Alcohol Use Questionnaire (AUDIT-C) 1. How often do you have a drink containing alcohol?: Never 3. How often do you have six or more drinks on one occasion?: Never Total Score: 0 JAMES-7 AMB Questionnaire JAMES-7 Date JAMES - 7 assessed: 12/17/23 Feeling nervous, anxious, or on edge: 2 = More than half the days Not being able to stop or control worryin = More than half the days Worrying too much about different things: 2 = More than half the days Trouble relaxin = More than half the days Being so restless that it is hard to sit still: 2 = More than half the days Becoming easily annoyed or irritable: 2 = More than half the days Feeling afraid as if something awful might happen: 0 = Not at all Total JAMES-7 score (0-4 normal; 5-9 mild; 10-14 moderate; 15-21 severe): 12 Source: Developed by Drs. Holger Brumfield, Ria Cruz, Roger Alejo and colleagues, with an educational tamar from [employer]. JAMES-7 Assessment Billing JAMES-7 Assessment Tool: JAMES-7 Assessment 34788 Review of Systems Const Denies chills, Denies fatigue, Denies fever(s), Denies headache(s) and Denies weakness Eyes Denies change in vision ENT Denies dizziness, Denies headache(s), Denies hearing loss, Denies nasal congestion, Denies sinus pain, Denies sinus pressure and Denies sore throat Card Denies chest pain, Denies lightheadedness, Denies dyspnea and Denies other (palpitations) Resp Denies cough, Denies dyspnea and Denies wheezing GI Denies abdominal pain, Denies melena, Denies hematochezia, Denies change in bowel habits, Denies dyspepsia and Denies nausea Denies hematuria and Denies dysuria Musc Denies abnormal gait, Denies myalgias, Denies arthralgias, Denies numbness and Denies tingling Skin/Breast Denies rash, Denies unusual bruising and Denies wounds Neuro Denies abnormal gait, Denies dizziness, Denies headache(s), Denies memory loss, Denies numbness, Denies Sensory deficit (Neuro), Denies tingling and Denies weakness Psych Denies anxiety, Denies depression and Denies memory loss Endo Denies cold intolerance, Denies fatigue, Denies heat intolerance, Denies polydipsia and Denies polyuria Bandar/Lymph Denies easy bleeding and Denies easy bruising Aller/Immun Denies wheezing Physical exam (Primary Care) Vital Signs: Last Vital Signs Pulse 65 12/17/23 08:50 BP 130/80 12/17/23 08:50 Pulse Ox 96 12/17/23 08:50 Oxygen Delivery Method Room Air 12/17/23 08:50 BMI result Body Mass Index 34.1 Tobacco/Smoking Status: Tobacco use Status Tobacco use date assessed 12/17/23 12/17/23 09:05 Patient Tobacco Use Status Former Tobacco user 12/17/23 09:05 e-Cigarette/Vaping Use Never Used 12/17/23 09:05 PHQ-9: PHQ-9 Score PHQ-9: Total score 0 12/17/23 09:13 Depression Screening Interpretation: Negative Thrive Assessment: Date of Thrive Assessment Date Thrive assessed 09/19/22 12/17/23 09:05 Const General: no acute distress, well developed, alert and awake Nutritional Appearance: well nourished Orientation/consciousness: patient oriented x3 [facility] Head: Yes normocephalic and Yes atraumatic Ears: hearing grossly normal bilaterally and TM's normal bilaterally General nose exam: Normal external nose present and Normal nares present Mouth: Normal oral and palatal mucosa present and moist mucous membranes Teeth and gingiva: dentition normal Throat: Yes posterior oropharynx normal Eyes General: appearance normal, both eyes and all related structures Pupils: Equal, round and reactive pupils present and Pupil accommodation reflex normal EOM: EOMs intact bilaterally Neck Neck: Yes normal visual inspection, Yes no lymphadenopathy and Yes trachea midline Thyroid: Thyroid normal Carotids: no bruits Lymphatic: no lymphadenopathy noted Chest Chest palpation & inspection: normal inspection of the chest Resp Effort & Inspection: normal respiratory effort Auscultation: clear to auscultation bilaterally Cardio Rate: regular rate Rhythm: regular rhythm Heart sounds: S1 normal heart sound present, S2 normal heart sound present, no gallops, no murmurs and no rubs Bruits: no abdominal aortic bruits and no carotid bruits GI Palpation (GI): No Abdominal aortic bruit present, Soft to palpation, nontender, No hepatosplenomegaly present and No Rebound tenderness present Auscultation: normal bowel sounds General: Yes no CVA tenderness Back/Spine/Pelvis Back: no CVA tenderness Cervical Spine: cervical ROM normal and No Cervical spine tenderness Thoracic/Lumbar Spine: thoraco-lumbar ROM normal, No pain with thoraco-lumbar ROM, No thoracic spinal tenderness and No lumbar spinal tenderness Skin Lesions: no lesions Rashes: no rashes Trauma: no lacerations or abrasions Wounds: no wounds Nails: normal Neuro General: patient oriented x3 Cranial nerves: Yes Equal, round and reactive pupils present Cognition (Neuro): normal cognition Gait exam (Neuro): Normal gait present Motor exam (neuro): 5/5 motor strength present throughout Sensory Exam: No Sensory deficit (Neuro) Deep tendon reflexes (DTR's): Right patellar reflex intensity grade: 2+ and Left patellar reflex intensity grade: 2+ Extrem General: Yes normal to inspection and No edema Psych Appearance: grossly normal Affect: normal affect Attitude: cooperative Thought process: Normal thought process present Assessment and Plan Assessment & Plan (1) Chronic schizophrenia: Code(s): F20.9 - Schizophrenia, unspecified Plan: Chronic?schizophrenia?with?increased?anxiety.??Patient?had?discontinued?olanzapi ne Discussed?this?with?patient?and?he?will?resume?olanzapine. Call?or?return?to?office?if?having?problems (2) HTN (hypertension): Code(s): I10 - Essential (primary) hypertension Plan: Blood?pressure?is?fairly?well?controlled.??Goal?is?less?than?130/80 Continue?current?medication (3) Screening for colon cancer: Code(s): Z12.11 - Encounter for screening for malignant neoplasm of colon Plan: Ordered?Cologuard?test?as?patient?declines?colonoscopy (4) Screening for prostate cancer: Code(s): Z12.5 - Encounter for screening for malignant neoplasm of prostate Plan: Screening?for?prostate?cancer?managed?by?his?urologist (5) Adult general medical exam: Code(s): Z00.00 - Encounter for general adult medical examination without abnormal findings Plan: 53-year-old?male?presents?for?extended?exam Encouraged?healthy?diet?with?active?lifestyle?and?plenty?of?exercise Orders: Orders Lipid Panel Today Z00.00 - Encounter for general adult medical examination without abnormal findings TSH reflex Free T4 Today Z00.00 - Encounter for general adult medical examination without abnormal findings UA and rflx microscopic Today Z00.00 - Encounter for general adult medical examination without abnormal findings Comprehensive [place]. Panel Fast Today Z00.00 - Encounter for general adult medical examination without abnormal findings Complete Blood Count Auto Diff Today Z00.00 - Encounter for general adult medical examination without abnormal findings Microalbumin, Random (w Creat) Today I10 - Essential (primary) hypertension Referrals Cologuard Test Z12.11 - Encounter for screening for malignant neoplasm of colon, Z12.12 - Encounter for screening for malignant neoplasm of rectum Medications: Changed From olanzapine 20 mg PO BEDTIME To olanzapine 20 mg PO BEDTIME 30 days 30 tabs 2RF From hydroxyzine pamoate 50 mg PO BID PRN To hydroxyzine pamoate 50 mg PO BID 30 days PRN 60 caps 0RF anxiety Refilled atorvastatin 40 mg PO BEDTIME 90 days 90 tabs 4RF clonidine HCl 0.1 mg PO BID 90 days PRN 180 tabs 2RF Anxiety finasteride 5 mg PO DAILY 90 days 90 tabs 3RF N13.8 - Other obstructive and reflux uropathy, N40.1 - Benign prostatic hyperplasia with lower urinary tract symptoms, R33.9 - Retention of urine, unspecified hydrochlorothiazide 25 mg See Protocol PO DAILY 90 tabs 1RF Coding Level of Care Code Est Pt Level 4 (43405) Diagnoses Chronic schizophrenia F20.9 HTN (hypertension) I10 Screening for colon cancer Z12.11 Screening for prostate cancer Z12.5 Adult general medical exam Z00.00 Additional Codes JAMES-7 Assessment Billing - JAMES-7 Assessment Tool: JAMES-7 Assessment [id number] ([id number])
== END 2023-12-17 10:07 | disposition home or self-care (01) ==
PROVIDERS: PCP Family Medicine; Visit Provider Family Medicine
DX: Z00.00 Encounter for general adult medical examination without abnormal findings (principal); F20.9 Schizophrenia, unspecified; I10 Essential (primary) hypertension; Z12.11 Encounter for screening for malignant neoplasm of colon; Z12.5 Encounter for screening for malignant neoplasm of prostate
CPT/HCPCS: 99396

== ENCOUNTER 2023-12-17 09:39 | Outpatient (REF) | payer OTHER, SELFPAY ==
[2023-12-17 11:28] LABS: MANUAL DIFF FLAG NO
[2023-12-17 11:48] LABS: Basophils Absolute Auto 0.1 X10*3/uL (0.0-0.2); Basophils Percent Auto 0.7 % (0-2); Eosinophils Absolute Auto 0.2 X10*3/uL (0.0-0.4); Eosinophils Percent Auto 3.2 % (0-4); Hematocrit 45.9 % (42.0-52.0); Hemoglobin 16.6 g/dl (14.0-18.0); Imm Gran Abs Auto 0.03 X10*3/uL (0.00-0.03); Imm Gran Pct Auto 0.4 % (0.0-0.4); Lymphocytes Percent Auto 27.4 % (20-40); Mean Corpuscular HGB Conc 36.2 g/dl (31.0-36.0); Mean Corpuscular Hemoglobin 31.6 pg (27.0-33.0); Mean Corpuscular Volume 87.4 fL (80.0-98.0); Mean Platelet Volume 10.4 fL (9.4-12.4); Monocytes Absolute Auto 0.5 X10*3/uL (0.1-1.2); Monocytes Percent Auto 7.5 % (2-11); Neutrophils Absolute Auto 4.4 x10*3/uL (2.0-8.3); Neutrophils Percent Auto 60.8 % (45-73); Platelet Count 246 X10*3/uL (160-400); Red Blood Count 5.25 X10*6/uL (4.60-5.80); Red Cell Distribution Width 12.3 % (11.0-16.0); White Blood Count 7.2 X10*3/uL (4.8-10.8)
[2023-12-17 11:59] LABS: Appearance Urine Clear; Color Urine Yellow; Glucose Urine UA Negative (Negative); Leukocyte Esterase Urine Negative (Negative); Nitrite Urine Negative (Negative); PH 6.5 (5.0-9.0); Specific Gravity - Urine 1.015 (1.005-1.025); Urine Blood Negative (Negative); Urine Ketones Negative (Negative); Urine Protein Negative (Neg-Trace)
[2023-12-17 14:10] LABS: Creatinine Urine 91.72 mg/dL; Microalbum/Creatinine Ratio Ur 6.5 ug/mg cr (<30)
[2023-12-17 18:00] LABS: Alanine Aminotransferase 30 U/L (0-40); Albumin Level 4.7 g/dL (3.5-5.0); Alkaline Phosphatase 107 U/L (39-117); Anion Gap 13 (12-20); Aspartate Amino Transferase 24 U/L (5-37); Bilirubin Total 0.6 mg/dL (0.0-1.0); Blood Urea Nitrogen 13 mg/dL (9-16); Calcium 9.7 mg/dL (8.4-10.2); Carbon Dioxide 29 mmol/L (22-29); Chloride 103 mmol/L (96-108); Cholesterol 175 mg/dL (<200); Estimated Glomerular Filt Rate > 60; Glucose Fasting 93 mg/dL (60-99); HDL Cholesterol 55 mg/dL (>40); LDL Cholesterol Calculated 96 mg/dL (<100); Potassium 3.6 mmol/L (3.3-5.1); Sodium 141 mmol/L (135-145); Total Protein 7.7 g/dL (6.5-8.0); Triglycerides 123 mg/dL (<150)
[2023-12-17 18:17] LABS: TSH reflex Free T4 0.89 uIU/mL (0.32-4.0)
== END 2023-12-17 09:40 | disposition home or self-care (01) ==
LOC: HO.WFDLDS 09:39
PROVIDERS: Visit Provider Family Medicine
DX: Z00.00 Encounter for general adult medical examination without abnormal findings (principal); I10 Essential (primary) hypertension
CPT/HCPCS: 36415; 80053; 80061; 81003; 82043; 82570; 84443; 85025

== ENCOUNTER 2023-12-27 14:45 | Outpatient (AMB) | payer OTHER, SELFPAY ==
--- NOTE | 2023-12-27 14:47 | A.OFFPC_ITS ---
Vital Signs 12/27/23 14:48 Height 5 ft 9 in Weight 226 lb BMI 33.4 BP 124/80 Blood Pressure Location Lt brachial Position Sitting Pulse 90 Pulse Source Pulse Oximeter Pulse Oximetry (%) 98 Oxygen Delivery Method Room Air Intake Visit Reasons: f/u CPE-labs via telemedicine Intake Note: Patient is here for follow up on labs today. Allergies No Known Allergies Allergy (Verified 12/27/23 14:49) Medication List - Last Reconciled 12/27/23 by Balaji Tse MD atorvastatin 40 mg PO BEDTIME 90 days clonidine HCl 0.1 mg PO BID PRN 90 days finasteride 5 mg PO DAILY 90 days hydrochlorothiazide 25 mg See Protocol PO DAILY hydroxyzine pamoate 50 mg PO BID PRN 30 days olanzapine 20 mg PO BEDTIME 30 days pantoprazole 40 mg PO DAILY 90 days phenytoin sodium extended 300 mg (3 x 100 mg) PO DAILY 30 days Tobacco use date assessed: 12/17/23 Dental Screening Dental Screen Date: 12/17/23 HPI f/u CPE-labs via telemedicine HPI Details 53 y/o male presents to f/u CPE-labs. Labs were drawn 12/17/23. Reviewed labs with pt. Triglycerides 123. TC 175. LDL 96. HDL 55. His labs were fine. Blood pressure today 124/80. He is on hydrochlorothiazide 25mg daily. HPI Comments History of Present Illness Details Documentation assistance for Balaji Tse MD, was provided by Keith Echols, Roll Operator on 12/27/2023 3:02 PM EST. I, Dr. Tse, have read, observed, and verified documentation. [facility] Medical History Crack cocaine use Alcohol use disorder, moderate, in sustained remission, dependence HTN (hypertension) TBI (traumatic brain injury) Epilepsy Family History Mother Substance abuse Social History Household Members: None Housing: Homeless Do you presently have visiting nurse or other home services: No Patient Tobacco Use Status: Former Tobacco user e-Cigarette/Vaping Use: Never Used Second Hand Smoke Exposure: No Substance Use Type: Former Substance User service: No Current occupational status: unemployed Current occupational exposures/hazards: No Sexual orientation: did not discuss. Cognitive needs: No Hearing needs: No Vision needs: No Questionnaire Thrive Questionnaire Date Thrive assessed: 09/19/22 JAMES-7 AMB Questionnaire JAMES-7 Date JAMES - 7 assessed: 12/17/23 Source: Developed by Drs. Holger Brumfield, Ria Cruz, Roger Alejo and colleagues, with an educational tamar from [employer]. Review of Systems Const Denies chills, Denies fatigue, Denies fever(s), Denies headache(s) and Denies weakness ENT Denies dizziness and Denies headache(s) Card Denies chest pain, Denies lightheadedness, Denies dyspnea and Denies other (Palpitations) Resp Denies cough, Denies dyspnea, Denies wheezing and Denies other ( shortness of breath) Musc Denies numbness and Denies tingling Neuro Denies dizziness, Denies headache(s), Denies numbness, Denies tingling, Denies paresthesias and Denies weakness Psych Denies anxiety and Denies depression Endo Denies fatigue Aller/Immun Denies wheezing Physical exam (Primary Care) Vital Signs: Last Vital Signs Pulse 90 12/27/23 14:48 BP 124/80 12/27/23 14:48 Pulse Ox 98 12/27/23 14:48 Oxygen Delivery Method Room Air 12/27/23 14:48 BMI result Body Mass Index 33.4 Tobacco/Smoking Status: Tobacco use Status Tobacco use date assessed 12/17/23 12/27/23 14:48 Patient Tobacco Use Status Former Tobacco user 12/27/23 14:48 e-Cigarette/Vaping Use Never Used 12/27/23 14:48 Thrive Assessment: Date of Thrive Assessment Date Thrive assessed 09/19/22 12/27/23 14:48 Const General: no acute distress and well developed Nutritional Appearance: well nourished Orientation/consciousness: patient oriented x3 HENMT Head: Yes normocephalic and Yes atraumatic Eyes General: appearance normal, both eyes and all related structures Pupils: Equal, round and reactive pupils present EOM: EOMs intact bilaterally Resp Effort & Inspection: normal respiratory effort Auscultation: clear to auscultation bilaterally Cardio Rate: regular rate Rhythm: regular rhythm Heart sounds: S1 normal heart sound present, S2 normal heart sound present, no gallops, no murmurs and no rubs Neuro General: patient oriented x3 and gait normal Cranial nerves: Yes Equal, round and reactive pupils present Psych Affect: normal affect Assessment and Plan Assessment & Plan (1) HTN (hypertension): Code(s): I10 - Essential (primary) hypertension Plan: Blood?pressure?is?controlled Goal?is?less?than?140/90 Continue?current?medication Coding Level of Care Code Est Pt Level 3 (83164) Diagnoses HTN (hypertension) I10
[2023-12-27 14:48] VITALS: BP 124/80; PULSE 90; O2SAT 98; BMI 33.4
== END 2023-12-27 15:05 | disposition home or self-care (01) ==
PROVIDERS: PCP Family Medicine; Visit Provider Family Medicine
DX: I10 Essential (primary) hypertension (principal)
CPT/HCPCS: 99213

== ENCOUNTER 2024-01-01 06:35 | Day surgery (SDC) | payer OTHER, SELFPAY ==
[2023-12-30 13:26] VITALS: BMI 33.4
--- NOTE | 2023-12-31 10:44 | HO.ANESPROP2 ---
Documented by User: Cici Finley NP 12/31/23 10:46 HPI - Anesthesia Eval Consult details Narrative: 53yo M for Right ESWL Hx polysub abuse PMFSH Active Problems Active Problems: All Active Problems Enlarged prostate (Acute) Nephrolithiasis (Acute) Elevated PSA (Acute) Depression (Acute) Low back pain (Acute) Yeast infection of the skin (Acute) Hyperlipidemia (Acute) Thoracic kyphosis (Acute) Screening for prostate cancer (Acute) Screening for colon cancer (Acute) Adult general medical exam (Acute) History of seizures (Acute) History of substance abuse (Acute) Laboratory exam ordered as part of routine general medical examination (Acute) Chronic schizophrenia (Acute) TBI (traumatic brain injury) (Acute) HTN (hypertension) (Acute) Epilepsy (Acute) Past Medical History Medical History Crack cocaine use Alcohol use disorder, moderate, in sustained remission, dependence HTN (hypertension) TBI (traumatic brain injury) Epilepsy Family History Family History Mother Substance abuse Surgical History Surgical History Surgical history unknown Social History Social History Household Members: None Housing: Homeless Do you presently have visiting nurse or other home services: No Patient Tobacco Use Status: Former Tobacco user e-Cigarette/Vaping Use: Never Used Second Hand Smoke Exposure: No Substance Use Type: Former Substance User Advance Directives: No Advance Directives Information Provided: Yes service: No Current occupational status: unemployed Current occupational exposures/hazards: No Sexual orientation: did not discuss. Cognitive needs: No Hearing needs: No Vision needs: No Meds Allergies Allergy/AdvReac Type Severity Reaction Status Date / Time No Known Allergies Allergy Verified 01/01/24 07:01 Exam Height,Weight and Vital Signs: Height 5 ft 9 in Weight 102.512 kg Assessment and Plan Assessment Anesthesia Assessment: Chart Reviewed Documented by User: Maciel Siegel MD 01/01/24 11:08 [facility] Past Medical History Medical History Crack cocaine use Alcohol use disorder, moderate, in sustained remission, dependence HTN (hypertension) TBI (traumatic brain injury) Epilepsy Family History Family History Mother Substance abuse Family history of problems with anesthesia: No Surgical History Surgical History Surgical history unknown History of Problems with Anesthesia: No Social History Social History Household Members: None Housing: Homeless Do you presently have visiting nurse or other home services: No Patient Tobacco Use Status: Former Tobacco user e-Cigarette/Vaping Use: Never Used Second Hand Smoke Exposure: No Substance Use Type: Former Substance User Advance Directives: No Advance Directives Information Provided: Yes service: No Current occupational status: unemployed Current occupational exposures/hazards: No Sexual orientation: did not discuss. Cognitive needs: No Hearing needs: No Vision needs: No Meds Allergies Allergy/AdvReac Type Severity Reaction Status Date / Time No Known Allergies Allergy Verified 01/01/24 07:01 Exam Airway Mallampati Class: II TM Dist: <=3cm Neck ROM: Full Loose/Missing/Broken Teeth: Yes, Upper and Lower Heart: ok Lungs: ok Assessment and Plan Assessment Anesthesia Assessment: Anesthesia Plan Discussed Final Anesthetic Review Family History of Problems with Anesthesia: No History of Problems with Anesthesia: No NPO: Yes ASA Class: III Final Preanesthetic Review: No Changes in Pt Med Stat, Meds/Allgs Chart Reviewed, Consent Obtained/Reviewed and Anes Risks/Benef Reviewed Patient Risk: Intermediate Procedure Risk: Low Anesthetic Plan Anesthetic Plan: GA and Agree w/ Assess. and Plan Disposition: Standard PACU
--- NOTE | ~2024-01-01 | XR_ITS ---
EXAMINATION: XR ABDOMEN KUB CLINICAL INDICATION: Right renal stone COMPARISON: KUB on 11/05/2023 TECHNIQUE: AP view of the abdomen. FINDINGS: AP supine x-rays of the abdomen show nonspecific bowel gas pattern. No abnormal bowel dilatation is seen. A persistent right mid renal calculus measuring 0.77 cm in diameter is seen. XR/XR KUB IMPRESSION: 1. No interval change in size and position of right mid renal calculus. 2. No signs of intestinal obstruction on supine x-rays.
[2024-01-01 07:11] VITALS: BMI 32.5
[2024-01-01 08:00] VITALS: BP 133/82; PULSE 56; RESP 16; TEMP 37.3; O2SAT 95
[2024-01-01] MEDS: Lactated Ringers 1,000 ML 100 ML IVCONT (08:07)
--- NOTE | 2024-01-01 10:27 | MHC.SHP ---
Pre-Procedural Eval Section A - 24 Hr Update-Section A only Date of Service: 01/01/24 The patient is an INPATIENT: No The patient has been examined within 24 hours of the surgical procedure. The History & Physical has been completed within 30 days and I have reviewed it.: Yes Section B - Complete if H&P > 30 days Chief Complaint: Calculus of kidney, right Allergies: Allergies Allergy/AdvReac Type Severity Reaction Status Date / Time No Known Allergies Allergy Verified 01/01/24 07:01 Plan Diagnosis/Plan: Unchanged I have reviewed the history and physical and performed a pertinent physical examination on my patient. No changes have occurred unless specified. Right ESWL. Discussed risks to include but not limited to, blood in the urine, bruising to the skin, kidney hematoma, possible need for another procedure if a stone fragment obstructs the ureter while passing, possible need to repeat procedure if stone is not completely fragmented. Time Spent With Patient Time: Total time managing care of this patient today ____ minutes.
[2024-01-01 11:32] VITALS: BP 120/96; PULSE 74; RESP 18; TEMP 36.6; O2SAT 95
[2024-01-01 11:35] VITALS: BP 167/94; PULSE 74; RESP 18; O2SAT 95
[2024-01-01 11:40] VITALS: BP 154/91; PULSE 61; RESP 18; O2SAT 95
[2024-01-01 11:45] VITALS: BP 136/79; PULSE 58; RESP 18; O2SAT 95
[2024-01-01 12:00] VITALS: BP 141/82; PULSE 58; RESP 16; TEMP 36.1; O2SAT 95
--- NOTE | 2024-01-01 12:11 | W.PM.OPN ---
Operative Note Operative Note Date of Service: 01/01/24 Narrative: PreOperative Diagnosis:? ? Right Renal stone Post Operative Diagnosis:?Right? Renal stone Procedure:?Right? ESWL Surgeon:?Dr Shoaib Keith Anesthesia:? General Indications for procedure: The patient understands there is a risk of bruising or hematoma to the kidney, infection, and stone migration following the procedure and subsequent intervention may be required.? - Imaging 8x 5 mm stone - right mid kidney Procedure: After informed consent was verified the patient was brought to the operating room and placed in a supine position.? Anesthesia was performed per protocol. Safety pause time-out was performed. Imaging was displayed in the room and laterality confirmed. ESWL was performed.?The stone was visualized on both fluoroscopy and ultrasound.? Shockwave lithotripsy was performed, with a maximum rate of 120 hertz. After the first 300 shocks a pause for 3 minutes was completed.? A total of 2500 shocks to a maximum of power of 20 with a maximum rate of 120 hertz.? Some fragmentation of the stone was appreciated. The patient tolerated the procedure well and was transferred to the recovery area upon completion. Complications: None
== END 2024-01-01 13:54 | disposition home or self-care (01) ==
PROVIDERS: PCP Family Medicine; Visit Provider Urology
PROC: (CPT 50590; principal; 2024-01-01 09:10)
DX: N20.0 Calculus of kidney (principal); N40.0 Benign prostatic hyperplasia without lower urinary tract symptoms; R97.20 Elevated prostate specific antigen [PSA]; G40.909 Epilepsy, unspecified, not intractable, without status epilepticus; I10 Essential (primary) hypertension; Z79.899 Other long term (current) drug therapy; Z87.820 Personal history of traumatic brain injury; F10.21 Alcohol dependence, in remission; F14.90 Cocaine use, unspecified, uncomplicated; Z59.00 Homelessness unspecified; Z56.0 Unemployment, unspecified
CPT/HCPCS: 50590; 74018; J0131; J0690; J2704; J3010

== ENCOUNTER → 2024-01-01 06:35 | Outpatient (BNV) | payer OTHER, SELFPAY | PROVIDERS: PCP Family Medicine; Visit Provider Urology | DX: N20.0 Calculus of kidney (principal) | CPT/HCPCS: 50590 ==

== ENCOUNTER 2024-01-21 09:14 | Outpatient (REF) | payer OTHER, SELFPAY ==
--- NOTE | ~2024-01-21 | US_ITS ---
EXAMINATION: US RETROPERITONEAL LIMITED (RENAL ONLY) CLINICAL INFORMATION: Calculus of kidney. COMPARISON: X-ray KUB 01/01/2024 and 11/05/2023. CT kidney stone 03/27/2023. Renal ultrasound 02/08/2023. TECHNIQUE: Real-time imaging of the kidneys. Severely limited visualization due to bowel gas. FINDINGS: RIGHT KIDNEY: 11.1 x 5.8 x 5.3 cm (SAG x AP x TRV). No hydronephrosis. 7 mm right midpole calculus. Renal cortical thickness is normal. Limited visualization. LEFT KIDNEY: 10.5 x 5.0 x 5.2 cm (SAG x AP x TRV). No hydronephrosis. No renal calculi. Renal cortical thickness is normal. Limited visualization. US/US renal BI IMPRESSION: 7 mm right midpole calculus. No hydronephrosis.
== END 2024-01-21 09:15 | disposition home or self-care (01) ==
LOC: HO.US 09:14
PROVIDERS: PCP Family Medicine; Visit Provider Urology
DX: N20.0 Calculus of kidney (principal)
CPT/HCPCS: 76775

== ENCOUNTER 2024-02-12 15:15 | Outpatient (AMB) | payer OTHER, SELFPAY ==
--- NOTE | 2024-02-12 15:50 | MHC.OFFVIS ---
Intake Visit Reasons: ESWL- follow up/US Intake Note: Patient presents for POST OP ESWL and US Results: Urology Medications: Finasteride Blood Thinner: none Bag Mender Required: No Accompanied by: Self / Same As Patient Allergies No Known Allergies Allergy (Verified 02/12/24 15:51) HPI Comments Details: 02/12/24--Ritchie is here for fu, he was seen by BRANDEN Jansen on 11/05/23 for nephrolithiasis and enlarged prostate. He is prescribed proscar 5 mg daily and states he is takeng medication daily. He is s/p right ESWL on 01/01/24. I reviewed recent renal US- 01/21/24, persistent right renal stone reported. I have discussed to consider repeat Right ESWL, I want to check a KUB as stone was radioopaque. I have discussed diet modification to decrease risk of forming more kidney stones. I have discussed low oxalate diet and specific foods to avoid including certain green leafy vegetables, chocalate, nuts, tea, beets, rubarb; low sodium, decreased use of animal protein and the importance of hydration drinking up to 2-2.5 liters of fluids and use of adding lemon to water to increase citrate in the diet. A pamphlet is also provided today. The pt will fu with BRANDEN Jansen to follow elevated PSA. 20 minutes spent in review of records pertaining to this visit and including [id number] discussion with the patient and documentation of this visit. Review of chart: 11/05/23--Ritchie is a pleasant 53 year old male patient of Dr. Tse. He has a PMH of alcohol use disorder, moderate, in sustained remission, dependence, crack cocaine use, Epilepsy, HTN, and TBI. He presents to the office today for follow-up of his nephrolithiasis and elevated PSA. PSA's as follows: 12/23--4.1 01/22--4.1 percent free PSA 18% 05/25--3.8 07/25-3.3 10/26--3.2 Recent PSA results reviewed with the patient today as noted and trended above. When asked patient reports compliance with finasteride 5 mg daily. Previous workup has included retroperitoneal ultrasound noting several nonobstructing calculi noted within the right kidney, largest measuring approximately 1.3 cm there is no hydronephrosis. Left kidney with no calculi, lesions, and or hydronephrosis. The bladder was well distended and normal. Bilateral ureteral jets are demonstrated. Pre void bladder volume is approximately 290 mL. Postvoid bladder volume is approximately 210 mL. Prostate gland is enlarged and results in mass effect on the posterior bladder wall. Prostate volume 138ml's. Recent KUB results reviewed with the patient today. 0.7 cm nonobstructing stone in the right kidney. Discussed surveillance monitoring of nephrolithiasis versus surgical intervention. Discussed risks and benefits of these interventions at length. When asked he denies urinary urgency, urinary frequency, incontinence, nocturia, hematuria, dysuria, foul smelling urine, changes to urinary stream, flank pain, fever, and or chills. He is happy with his current voiding parameters. Discussed risks and benefits of prostate biopsy versus prostate MRI versus surveillance monitoring verses continuation of finasteride. In office urinalysis results reviewed with the patient today. He otherwise offers no issues or concerns at this time. [facility] Medical History Crack cocaine use Alcohol use disorder, moderate, in sustained remission, dependence HTN (hypertension) TBI (traumatic brain injury) Epilepsy Surgical History Surgical history unknown Family History Mother Substance abuse Social History Household Members: None Housing: Homeless Do you presently have visiting nurse or other home services: No Patient Tobacco Use Status: Former Tobacco user e-Cigarette/Vaping Use: Never Used Second Hand Smoke Exposure: No Substance Use Type: Former Substance User service: No Current occupational status: unemployed Current occupational exposures/hazards: No Sexual orientation: did not discuss. Cognitive needs: No Hearing needs: No Vision needs: No Review of Systems Const All systems reviewed & are unremarkable except as noted in HPI and below Reports no additional complaints Eyes Reports no additional complaints ENT Reports no additional complaints Card Reports no additional complaints Resp Reports no additional complaints GI Reports no additional complaints Reports as per HPI Musc Reports no additional complaints Skin/Breast Reports system reviewed and no additional complaints, except as documented Neuro Reports no additional complaints Psych Reports no additional complaints Endo Reports no additional complaints Bandar/Lymph Reports no additional complaints Aller/Immun Reports no additional complaints Results AMB Urinalysis, Automated UA Leukoctes 0 Wendy/uL Last Edit by ASHLYN Teixeira on 02/12/24 15:58 UA Nitrite Negative Last Edit by Jocelin Brennan [facility] on 02/12/24 15:58 UA Urobilinogen 0.2 mg/dL Last Edit by Jocelin Brennan [facility] on 02/12/24 15:58 UA Protein 15 mg/dL Last Edit by Jocelin Brennan [facility] on 02/12/24 15:58 UA pH 6.0 Last Edit by Jocelin Brennan [facility] on 02/12/24 15:58 UA Blood 0 Steve/uL Last Edit by Jocelin Brennan [facility] on 02/12/24 15:58 UA Specific [place] 1.015 Last Edit by Jocelin Brennan Subhash on 02/12/24 15:58 UA Ketone Positive Last Edit by Jocelin Brennan [facility] on 02/12/24 15:58 5 mg/dL Jocelin Brennan 02/12/24 15:58 UA Bilirubin 0 mg/dL Last Edit by Jocelin Brennan [facility] on 02/12/24 15:58 UA Glucose 0 mg/dL Last Edit by Jocelin Brennan [facility] on 02/12/24 15:58 Results Reviewed Results Reviewed: Laboratory Last Values Urine pH (Auto) 6.0 02/12/24 15:51 Specific [place] (Auto) 1.015 02/12/24 15:51 Urine Protein (Auto) 15 mg/dL 02/12/24 15:51 Glucose (UA)(Auto) 0 mg/dL 02/12/24 15:51 Urine Ketones (Auto) Positive 02/12/24 15:51 Urine Blood (Auto) 0 Steve/uL 02/12/24 15:51 Urine Nitrite (Auto) Negative 02/12/24 15:51 Urine Bilirubin (Auto) 0 mg/dL 02/12/24 15:51 Urine Urobilinogen (Auto) 0.2 mg/dL 02/12/24 15:51 Leukocyte Esterase (Auto) 0 Wendy/uL 02/12/24 15:51 Date of Service: 01/21/24 EXAMINATION: US RETROPERITONEAL LIMITED (RENAL ONLY) CLINICAL INFORMATION: Calculus of kidney. COMPARISON: X-ray KUB 01/01/2024 and 11/05/2023. CT kidney stone 03/27/2023. Renal ultrasound 02/08/2023. TECHNIQUE: Real-time imaging of the kidneys. Severely limited visualization due to bowel gas. FINDINGS: RIGHT KIDNEY: 11.1 x 5.8 x 5.3 cm (SAG x AP x TRV). No hydronephrosis. 7 mm right midpole calculus. Renal cortical thickness is normal. Limited visualization. LEFT KIDNEY: 10.5 x 5.0 x 5.2 cm (SAG x AP x TRV). No hydronephrosis. No renal calculi. Renal cortical thickness is normal. Limited visualization. IMPRESSION: 7 mm right midpole calculus. No hydronephrosis. Assessment & Plan Assessment & Plan (1) Enlarged prostate: Code(s): N40.0 - Benign prostatic hyperplasia without lower urinary tract symptoms Category: Medical (2) Elevated PSA: Code(s): R97.20 - Elevated prostate specific antigen [PSA] Category: Medical (3) Nephrolithiasis: Code(s): N20.0 - Calculus of kidney Category: Medical Plan In office urinalysis results reviewed with the patient today. PVR 72 mL. Recent PSA results reviewed with the patient today; as noted above. Discussed continuation of finasteride with surveillance monitoring of PSA verses prostate biopsy verses obtaining MRI of the prostate; this was discussed at length; risks and benefits of these interventions were discussed. Recent KUB results reviewed with the patient today. Discussed surveillance monitoring versus surgical intervention of nephrolithiasis; discussed risks and benefits of these interventions Patient currently denies any bothersome urinary issues or concerns. Is happy with current voiding parameters. Will continue with finasteride 5 mg daily; will obtain PSA in 4 months Will schedule for right-sided ESWL; as discussed Follow-up status post ESWL per doctor's orders; or sooner with any issues, concerns, and or questions. Orders: Orders AMB Urinalysis Automated Today Z13.9 - Encounter for screening, unspecified XR KUB Today N20.0 - Calculus of kidney Coding Level of Care Code Est Pt Level 3 (59731) Diagnoses Enlarged prostate N40.0 Elevated PSA R97.20 Nephrolithiasis N20.0
== END 2024-02-12 16:14 | disposition home or self-care (01) ==
PROVIDERS: PCP Family Medicine; Visit Provider Urology
DX: N40.0 Benign prostatic hyperplasia without lower urinary tract symptoms (principal); R97.20 Elevated prostate specific antigen [PSA]; N20.0 Calculus of kidney; Z13.9 Encounter for screening, unspecified
CPT/HCPCS: 99024

== ENCOUNTER → 2024-02-12 15:15 | Outpatient (BNVA) | payer OTHER, SELFPAY | PROVIDERS: PCP Family Medicine; Visit Provider Urology | DX: N40.0 Benign prostatic hyperplasia without lower urinary tract symptoms (principal); N20.0 Calculus of kidney; R97.20 Elevated prostate specific antigen [PSA] | CPT/HCPCS: 81003; 99212 ==

== ENCOUNTER 2024-02-19 09:14 | Outpatient (REF) | payer OTHER, SELFPAY ==
--- NOTE | ~2024-02-19 | XR_ITS ---
EXAMINATION: XR ABDOMEN KUB CLINICAL INDICATION: Calculus of kidney. COMPARISON: Ultrasound January 21, 2024, KUB January 01, 2024 and 11/05/2023 Degenerative changes in the lumbar spine. TECHNIQUE: 3 AP views of the abdomen. FINDINGS: Nonobstructive bowel gas pattern. [id number]-[id number] amount of stool in the colon limits visualization of the bilateral kidneys. Redemonstration of 0.77 cm right midpole calculus. XR/XR KUB IMPRESSION: Redemonstration of 0.77 cm right midpole calculus.
== END 2024-02-19 09:15 | disposition home or self-care (01) ==
LOC: HO.XRAY 09:14
PROVIDERS: PCP Family Medicine; Visit Provider Urology
DX: N20.0 Calculus of kidney (principal)
CPT/HCPCS: 74018

== ENCOUNTER 2024-04-23 08:14 | Outpatient (REF) | payer OTHER, SELFPAY ==
[2024-04-23 10:35] LABS: PSA,Total (Free>4and<10) 4.46 ng/mL (0.00-4.00)
[2024-04-27 10:33] LABS: Free Prostate Spec Ag 0.4 ng/mL; Percent Free Prostate Spec Ag 8 % (calc) (>25); Prostate Specific Ag Total 4.8 ng/mL (< OR = 4.0)
== END 2024-04-23 08:15 | disposition home or self-care (01) ==
LOC: HO.LAB 08:14
PROVIDERS: PCP Family Medicine; Visit Provider Urology
DX: N40.0 Benign prostatic hyperplasia without lower urinary tract symptoms (principal); R97.20 Elevated prostate specific antigen [PSA]; N20.0 Calculus of kidney
CPT/HCPCS: 36415; 81003; 84153; 84154; 99212

== ENCOUNTER 2024-04-23 08:14 | Outpatient (AMB) | payer OTHER, SELFPAY ==
--- NOTE | 2024-04-23 08:19 | A.OFFVIS_ITS ---
Intake Visit Reasons: Discuss kidney stones Intake Note: Patient presents for discusskidney stones Urology Medications: Finasteride,percocet Blood Thinner: none allergies: none Betting Clerks Required: No Accompanied by: Self / Same As Patient Allergies No Known Allergies Allergy (Verified 04/23/24 08:20) Medication List - Last Reconciled 04/23/24 by Shoaib Keith MD atorvastatin 40 mg PO BEDTIME 90 days clonidine HCl 0.1 mg PO BID PRN 90 days finasteride 5 mg PO DAILY 90 days hydrochlorothiazide 25 mg See Protocol PO DAILY hydroxyzine pamoate 50 mg PO BID PRN 30 days olanzapine 20 mg PO BEDTIME 30 days pantoprazole 40 mg PO DAILY 90 days phenytoin sodium extended 300 mg (3 x 100 mg) PO DAILY 30 days HPI Comments Details: 04/23/24--Ritchie is a 53-year-old male who is followed for enlarged prostate and elevated PSA on finasteride and right nephrolithiasis. I have discussed follow- up KUB still has sizable right kidney stone burden 0.77 cm. Discussed repeat right ESWL. Reviewed risks and benefits. Consent obtained. We will continue Proscar 5 mg daily repeat PSA. Review of chart: 02/12/24--Ritchie is here for fu, he was seen by BRANDEN Jansen on 11/05/23 for nephrolithiasis and enlarged prostate. He is prescribed proscar 5 mg daily and states he is takeng medication daily. He is s/p right ESWL on 01/01/24. I reviewed recent renal US- 01/21/24, persistent right renal stone reported. I have discussed to consider repeat Right ESWL, I want to check a KUB as stone was radioopaque. I have discussed diet modification to decrease risk of forming more kidney stones. I have discussed low oxalate diet and specific foods to avoid including certain green leafy vegetables, chocalate, nuts, tea, beets, rubarb; low sodium, decreased use of animal protein and the importance of hydration drinking up to 2-2.5 liters of fluids and use of adding lemon to water to increase citrate in the diet. A pamphlet is also provided today. The pt will fu with BRANDEN Jansen to follow elevated PSA. 20 minutes spent in review of records pertaining to this visit and including [id number] discussion with the patient and documentation of this visit. 11/05/23--Ritchie is a pleasant 53 year old male patient of Dr. Tse. He has a PMH of alcohol use disorder, moderate, in sustained remission, dependence, crack cocaine use, Epilepsy, HTN, and TBI. He presents to the office today for follow- up of his nephrolithiasis and elevated PSA. PSA's as follows: 12/23--4.1 01/22--4.1 percent free PSA 18% 05/25--3.8 07/25-3.3 10/26--3.2 Recent PSA results reviewed with the patient today as noted and trended above. When asked patient reports compliance with finasteride 5 mg daily. Previous workup has included retroperitoneal ultrasound noting several nonobstructing calculi noted within the right kidney, largest measuring approximately 1.3 cm there is no hydronephrosis. Left kidney with no calculi, lesions, and or hydronephrosis. The bladder was well distended and normal. Bilateral ureteral jets are demonstrated. Pre void bladder volume is approximately 290 mL. Postvoid bladder volume is approximately 210 mL. Prostate gland is enlarged and results in mass effect on the posterior bladder wall. Prostate volume 138ml's. Recent KUB results reviewed with the patient today. 0.7 cm nonobstructing stone in the right kidney. Discussed surveillance monitoring of nephrolithiasis versus surgical intervention. Discussed risks and benefits of these interventions at length. When asked he denies urinary urgency, urinary frequency, incontinence, nocturia, hematuria, dysuria, foul smelling urine, changes to urinary stream, flank pain, fever, and or chills. He is happy with his current voiding parameters. Discussed risks and benefits of prostate biopsy versus prostate MRI versus surveillance monitoring verses continuation of finasteride. In office urinalysis results reviewed with the patient today. He otherwise offers no issues or concerns at this time. [facility] Medical History Crack cocaine use Alcohol use disorder, moderate, in sustained remission, dependence HTN (hypertension) TBI (traumatic brain injury) Epilepsy Surgical History Surgical history unknown Family History Mother Substance abuse Social History Household Members: None Housing: Homeless Do you presently have visiting nurse or other home services: No Patient Tobacco Use Status: Former Tobacco user e-Cigarette/Vaping Use: Never Used Second Hand Smoke Exposure: No Substance Use Type: Former Substance User service: No Current occupational status: unemployed Current occupational exposures/hazards: No Sexual orientation: did not discuss. Cognitive needs: No Hearing needs: No Vision needs: No Review of Systems Const All systems reviewed & are unremarkable except as noted in HPI and below Reports no additional complaints Eyes Reports no additional complaints ENT Reports no additional complaints Card Reports no additional complaints Resp Reports no additional complaints GI Reports no additional complaints Reports as per HPI Musc Reports no additional complaints Skin/Breast Reports system reviewed and no additional complaints, except as documented Neuro Reports no additional complaints Psych Reports no additional complaints Endo Reports no additional complaints Bandar/Lymph Reports no additional complaints Aller/Immun Reports no additional complaints Results AMB Urinalysis, Automated UA Leukoctes 0 Wendy/uL Last Edit by JIMENA Mir on 04/23/24 08:30 UA Nitrite Negative Last Edit by JIMENA Mir on 04/23/24 08:30 UA Urobilinogen 0.2 mg/dL Last Edit by JIMENA Mir on 04/23/24 08:3 0 UA Protein 0 mg/dL Last Edit by JIMENA Mir on 04/23/24 08:30 UA pH 7.5 Last Edit by JIMENA Mir on 04/23/24 08:30 UA Blood 0 Steve/uL Last Edit by JIMENA Mir on 04/23/24 08:30 UA Specific [place] 1.010 Last Edit by JIMENA Mir on 04/23/24 08: 30 UA Ketone Negative Last Edit by JIMENA Mir on 04/23/24 08:30 UA Bilirubin 0 mg/dL Last Edit by JIMENA Mir on 04/23/24 08:30 UA Glucose 0 mg/dL Last Edit by JIMENA Mir on 04/23/24 08:30 Results Reviewed Results Reviewed: Laboratory Last Values Urine pH (Auto) 7.5 04/23/24 08:29 Specific [place] (Auto) 1.010 04/23/24 08:29 Urine Protein (Auto) 0 mg/dL 04/23/24 08:29 Glucose (UA)(Auto) 0 mg/dL 04/23/24 08:29 Urine Ketones (Auto) Negative 04/23/24 08:29 Urine Blood (Auto) 0 Steve/uL 04/23/24 08:29 Urine Nitrite (Auto) Negative 04/23/24 08:29 Urine Bilirubin (Auto) 0 mg/dL 04/23/24 08:29 Urine Urobilinogen (Auto) 0.2 mg/dL 04/23/24 08:29 Leukocyte Esterase (Auto) 0 Wendy/uL 04/23/24 08:29 Date of Service: 01/21/24 EXAMINATION: US RETROPERITONEAL LIMITED (RENAL ONLY) CLINICAL INFORMATION: Calculus of kidney. COMPARISON: X-ray KUB 01/01/2024 and 11/05/2023. CT kidney stone 03/27/2023. Renal ultrasound 02/08/2023. TECHNIQUE: Real-time imaging of the kidneys. Severely limited visualization due to bowel gas. FINDINGS: RIGHT KIDNEY: 11.1 x 5.8 x 5.3 cm (SAG x AP x TRV). No hydronephrosis. 7 mm right midpole calculus. Renal cortical thickness is normal. Limited visualization. LEFT KIDNEY: 10.5 x 5.0 x 5.2 cm (SAG x AP x TRV). No hydronephrosis. No renal calculi. Renal cortical thickness is normal. Limited visualization. IMPRESSION: 7 mm right midpole calculus. No hydronephrosis. Assessment & Plan Assessment & Plan (1) Enlarged prostate: Code(s): N40.0 - Benign prostatic hyperplasia without lower urinary tract symptoms Category: Medical (2) Elevated PSA: Code(s): R97.20 - Elevated prostate specific antigen [PSA] Category: Medical (3) Nephrolithiasis: Code(s): N20.0 - Calculus of kidney Category: Medical Plan Enlarged prostate and elevated PSA on finasteride and right nephrolithiasis. Continue Proscar 5 mg daily repeat PSA. I have discussed follow-up KUB still has sizable right kidney stone burden 0.77 cm. Discussed repeat right ESWL. Reviewed risks and benefits. Consent obtained. Orders: Orders AMB Urinalysis Automated Today Z13.9 - Encounter for screening, unspecified PSA,Total (Free>4and<10) Today N40.0 - Benign prostatic hyperplasia without lower urinary tract symptoms, R97.20 - Elevated prostate specific antigen [PSA] Patient Instructions: The patient had an opportunity to ask questions regarding treatment plan. The patient expressed understanding and agreement with the above treatment plan. The patient is aware they should contact our office by phone for worsening of their current condition or the appearance of new symptoms. Compliance is encouraged with any medications and followup testing that is ordered. It is a privilege to be allowed the opportunity to participate in the urologic care of your patient. If you have any questions or concerns regarding treatment for the above conditions please do not hesitate to contact me. The office telephone contact is [phone]. This note is constructed in part using voice recognition software. While every effort has been made to ensure accuracy backup engineer errors may have been included. Yours sincerely, Shoaib Keith MD Coding Level of Care Code Est Pt Level 4 (16302) Diagnoses Enlarged prostate N40.0 Elevated PSA R97.20 Nephrolithiasis N20.0
== END 2024-04-23 08:56 | disposition home or self-care (01) ==
PROVIDERS: PCP Family Medicine; Visit Provider Urology
DX: N40.0 Benign prostatic hyperplasia without lower urinary tract symptoms (principal); R97.20 Elevated prostate specific antigen [PSA]; N20.0 Calculus of kidney; Z13.9 Encounter for screening, unspecified
CPT/HCPCS: 99214

== ENCOUNTER → 2024-05-20 06:00 | Outpatient (BNV) | payer OTHER, SELFPAY | PROVIDERS: PCP Family Medicine; Visit Provider Radiology Diagnostic Radiology | DX: N20.0 Calculus of kidney (principal) | CPT/HCPCS: 74018 ==

== ENCOUNTER → 2024-05-20 06:25 | Day surgery (SDC) | payer OTHER, SELFPAY ==
[2024-05-18 12:57] VITALS: BMI 33.4
--- NOTE | 2024-05-18 15:20 | HO.ANESPROP2 ---
HPI - Anesthesia Eval Consult details Narrative: 53yo M for Right Lithotripsy ESW s/p same 12/2023 with GA-LMA 4 PMFSH Active Problems Active Problems: All Active Problems Enlarged prostate (Acute) Nephrolithiasis (Acute) Elevated PSA (Acute) Depression (Acute) Low back pain (Acute) Yeast infection of the skin (Acute) Hyperlipidemia (Acute) Thoracic kyphosis (Acute) Screening for prostate cancer (Acute) Screening for colon cancer (Acute) Adult general medical exam (Acute) History of seizures (Acute) History of substance abuse (Acute) Laboratory exam ordered as part of routine general medical examination (Acute) Chronic schizophrenia (Acute) TBI (traumatic brain injury) (Acute) HTN (hypertension) (Acute) Epilepsy (Acute) Past Medical History Medical History (Updated 05/18/24 @ 12:58 by Mellissa Shaw RN) Schizophrenia Polysubstance abuse Alcohol use disorder, moderate, in sustained remission, dependence HTN (hypertension) TBI (traumatic brain injury) Epilepsy Family History Family History Mother Substance abuse Family history of problems with anesthesia: No Surgical History Surgical History (Updated 05/18/24 @ 12:48 by Mellissa Shaw RN) Hx of lithotripsy History of Problems with Anesthesia: No Social History Social History Household Members: None Housing: Homeless Do you presently have visiting nurse or other home services: No Patient Tobacco Use Status: Former Tobacco user e-Cigarette/Vaping Use: Never Used Second Hand Smoke Exposure: No Substance Use Type: Former Substance User service: No Current occupational status: unemployed Current occupational exposures/hazards: No Sexual orientation: did not discuss. Cognitive needs: No Hearing needs: No Vision needs: No Meds Allergies Allergy/AdvReac Type Severity Reaction Status Date / Time No Known Allergies Allergy Verified 04/23/24 08:20 Exam Height,Weight and Vital Signs: Height 5 ft 9 in Weight 102.512 kg Assessment and Plan Assessment Anesthesia Assessment: Chart Reviewed Final Anesthetic Review Family History of Problems with Anesthesia: No History of Problems with Anesthesia: No
--- NOTE | ~2024-05-20 | XR_ITS ---
EXAMINATION: XR ABDOMEN KUB CLINICAL INDICATION: pre eswl COMPARISON: 02/19/2024, 01/01/2024, 11/05/2023. TECHNIQUE: AP view of the abdomen. FINDINGS: Bowel gas pattern is normal/nonspecific. No dilated loops. There is an 8 mm oval calcification overlying the superior right renal shadow. This is unchanged from previous. No definite left calculi or suspicious pelvic calculi. No organomegaly or large abdominal mass. Normal osseous structures. XR/XR KUB IMPRESSION: -No significant interval change. -8 mm oval right upper pole renal calculus. Electronically signed by: Stephen Arguello MD 07/29/2024 02:50 PM EST
[2024-05-20 07:57] VITALS: BP 133/90; PULSE 58; RESP 14; TEMP 36.1; O2SAT 96; BMI 31.9
[2024-05-20] MEDS: Lactated Ringers 1,000 ML 100 ML IVCONT (08:05)
[2024-05-20] MEDS: Acetaminophen 1,000 MG/100 ML PIGGYBACK 400 MG IV (08:08)
--- NOTE | 2024-05-20 08:50 | PC.NURSE ---
Surgery canceled due to equipment failure. Surgeon at bedside to inform pt.
== END ==
LOC: HO.SSS 06:26
PROVIDERS: PCP Family Medicine; Visit Provider Urology
DX: N20.0 Calculus of kidney (principal); Z53.8 Procedure and treatment not carried out for other reasons
CPT/HCPCS: 74018; J0131; J0690

== ENCOUNTER 2024-06-03 06:27 | Day surgery (SDC) | payer OTHER, SELFPAY ==
[2024-06-01 14:46] VITALS: BMI 31.9
--- NOTE | 2024-06-02 11:06 | HO.ANESPROP2 ---
Documented by User: Cici Finley NP 06/02/24 11:06 HPI - Anesthesia Eval Consult details Narrative: 53yo M for Right Lithotripsy ESW s/p same 01/2024 with GA-LMA 4 Hx polysub Hx TBI PMFSH Active Problems Active Problems: All Active Problems Enlarged prostate (Acute) Nephrolithiasis (Acute) Elevated PSA (Acute) Depression (Acute) Low back pain (Acute) Yeast infection of the skin (Acute) Hyperlipidemia (Acute) Thoracic kyphosis (Acute) Screening for prostate cancer (Acute) Screening for colon cancer (Acute) Adult general medical exam (Acute) History of seizures (Acute) History of substance abuse (Acute) Laboratory exam ordered as part of routine general medical examination (Acute) Chronic schizophrenia (Acute) TBI (traumatic brain injury) (Acute) HTN (hypertension) (Acute) Epilepsy (Acute) Past Medical History Medical History Schizophrenia Polysubstance abuse Alcohol use disorder, moderate, in sustained remission, dependence HTN (hypertension) TBI (traumatic brain injury) Epilepsy Family History Family History Mother Substance abuse Family history of problems with anesthesia: No Surgical History Surgical History Hx of lithotripsy History of Problems with Anesthesia: No Social History Social History Household Members: None Housing: Homeless Are you a primary primary care sales representative to a significant other at home: No Do you presently have visiting nurse or other home services: No Patient Tobacco Use Status: Former Tobacco user e-Cigarette/Vaping Use: Never Used Second Hand Smoke Exposure: No Use of substances other than those prescribed or required for medical reasons: No Substance Use Type: Former Substance User Have you been hit, kicked, punched, or otherwise hurt by someone within the past year? If so, by whom?: No Are you DNR?: No Advance Directives: No Advance Directives Information Provided: Yes Recently lost weight without trying: No Nutrition Risks: No Nutritional Risk Poor oral hygiene: No service: No Current occupational status: unemployed Current occupational exposures/hazards: No Sexual orientation: did not discuss. Cognitive needs: No Hearing needs: No Vision needs: No Meds Allergies Allergy/AdvReac Type Severity Reaction Status Date / Time No Known Allergies Allergy Verified 05/20/24 07:27 Exam Height,Weight and Vital Signs: Height 5 ft 9 in Weight 97.976 kg Assessment and Plan Assessment Anesthesia Assessment: Chart Reviewed Final Anesthetic Review Family History of Problems with Anesthesia: No History of Problems with Anesthesia: No Documented by User: Divina Helms MD 06/03/24 14:57 PMFSH Past Medical History Medical History Schizophrenia Polysubstance abuse Alcohol use disorder, moderate, in sustained remission, dependence HTN (hypertension) TBI (traumatic brain injury) Epilepsy Family History Family History Mother Substance abuse Surgical History Surgical History Hx of lithotripsy Social History Social History Household Members: None Housing: Homeless Are you a primary primary care sales representative to a significant other at home: No Do you presently have visiting nurse or other home services: No Patient Tobacco Use Status: Former Tobacco user e-Cigarette/Vaping Use: Never Used Second Hand Smoke Exposure: No Use of substances other than those prescribed or required for medical reasons: No Substance Use Type: Former Substance User Have you been hit, kicked, punched, or otherwise hurt by someone within the past year? If so, by whom?: No Are you DNR?: No Advance Directives: No Advance Directives Information Provided: Yes Recently lost weight without trying: No Nutrition Risks: No Nutritional Risk Poor oral hygiene: No service: No Current occupational status: unemployed Current occupational exposures/hazards: No Sexual orientation: did not discuss. Cognitive needs: No Hearing needs: No Vision needs: No Meds Allergies Allergy/AdvReac Type Severity Reaction Status Date / Time No Known Allergies Allergy Verified 05/20/24 07:27 Exam Airway Mallampati Class: II (small mouth opening) TM Dist: >3cm Neck ROM: Full Heart: rrr Lungs: cta Assessment and Plan Assessment Anesthesia Assessment: Anesthesia Plan Discussed Final Anesthetic Review NPO: Yes ASA Class: II Final Preanesthetic Review: No Changes in Pt Med Stat, Meds/Allgs Chart Reviewed and Consent Obtained/Reviewed Patient Risk: Low Procedure Risk: Low Anesthetic Plan Anesthetic Plan: GA Disposition: Standard PACU
--- NOTE | ~2024-06-03 | XR_ITS ---
EXAMINATION: XR ABDOMEN KUB CLINICAL INDICATION: pre ESWL, right kidney stone COMPARISON: 05/20/2024, 02/19/2024, and dating back to 11/05/2023. TECHNIQUE: AP view of the abdomen. FINDINGS: Bowel gas pattern is normal/nonspecific. No dilated loops. There is an 8 mm oval calcification overlying the superior right renal shadow. This is unchanged from previous. No definite left calculi or suspicious pelvic calculi. No organomegaly or large abdominal mass. Hiatus hernia suspected. Normal osseous structures. XR/XR KUB IMPRESSION: -No significant interval change. -8 mm oval right upper pole renal calculus. Electronically signed by: Stephen Arguello MD 07/29/2024 02:52 PM [facility]
--- NOTE | 2024-06-03 12:47 | PC.NURSE ---
patient brought $1051.00 lopez with him in his wallet. Money counted and verified by this RN and Chandu Paez. Patient placed money back into his wallet and placed wallet with money into a zip lock bag. Wallet placed in sealed valuables envelope and transported to security.
[2024-06-03 13:21] VITALS: BP 133/78; PULSE 54; RESP 15; TEMP 36.8; O2SAT 95; BMI 31.9
[2024-06-03] MEDS: Acetaminophen 1,000 MG/100 ML PIGGYBACK 400 MG IV (13:43)
[2024-06-03] MEDS: Lactated Ringers 1,000 ML 100 ML IVCONT (13:44)
--- NOTE | 2024-06-03 15:12 | MHC.SHP ---
Pre-Procedural Eval Section A - 24 Hr Update-Section A only Date of Service: 06/03/24 The patient is an INPATIENT: No The patient has been examined within 24 hours of the surgical procedure. The History & Physical has been completed within 30 days and I have reviewed it.: Yes Section B - Complete if H&P > 30 days Chief Complaint: Calculus of kidney Allergies: Allergies Allergy/AdvReac Type Severity Reaction Status Date / Time No Known Allergies Allergy Verified 05/20/24 07:27 Plan Diagnosis/Plan: Unchanged I have reviewed the history and physical and performed a pertinent physical examination on my patient. No changes have occurred unless specified. Right ESWL. Time Spent With Patient Time: Total time managing care of this patient today ____ minutes.
--- NOTE | 2024-06-03 15:46 | P.OP_ITS ---
Operative Note Operative Note Date of Service: 06/03/24 Narrative: PreOperative Diagnosis:? ? Right Renal stone Post Operative Diagnosis:?Right? Renal stone Procedure:?Right? ESWL Surgeon:?Dr Shoaib Keith Anesthesia:? General Indications for procedure: The patient understands there is a risk of bruising or hematoma to the kidney, infection, and stone migration following the procedure and subsequent intervention may be required.? - Imaging 0.7 x 0.4 cm right renal stone Procedure: After informed consent was verified the patient was brought to the operating room and placed in a supine position.? Anesthesia was performed per protocol. Antibiotics Confirmed. Safety pause time-out was performed. Imaging was displayed in the room and laterality confirmed. ESWL was performed.?The stone was visualized on both fluoroscopy and ultrasound.? Shockwave lithotripsy was performed, with a maximum rate of 180 her tz. The first 300 shocks at a rate of 60 then a pause for 3 minutes was completed.? A total of 2500 shocks to a maximum power of 17 with a maximum rate of 180 hertz.? Some fragmentation of the stone was appreciated. The patient tolerated the procedure well and was transferred to the recovery area upon completion. Complications: None
[2024-06-03 16:09] VITALS: BP 144/98; PULSE 69; RESP 16; TEMP 36.7; O2SAT 99
[2024-06-03 16:14] VITALS: BP 155/98; PULSE 60; RESP 18; O2SAT 98
[2024-06-03 16:19] VITALS: BP 156/99; PULSE 86; RESP 18; O2SAT 98
[2024-06-03 16:24] VITALS: BP 156/98; PULSE 82; RESP 18; TEMP 36.7; O2SAT 98
== END 2024-06-03 16:31 | disposition home or self-care (01) ==
PROVIDERS: PCP Family Medicine; Visit Provider Urology
PROC: (CPT 50590; principal; 2024-06-03 13:30)
DX: N20.0 Calculus of kidney (principal); N40.0 Benign prostatic hyperplasia without lower urinary tract symptoms; R97.20 Elevated prostate specific antigen [PSA]; Z87.442 Personal history of urinary calculi; I10 Essential (primary) hypertension; G40.909 Epilepsy, unspecified, not intractable, without status epilepticus; Z87.820 Personal history of traumatic brain injury; Z79.899 Other long term (current) drug therapy; F14.90 Cocaine use, unspecified, uncomplicated; F10.21 Alcohol dependence, in remission; Z56.0 Unemployment, unspecified
CPT/HCPCS: 50590; 74018; J0131; J0690; J1100; J1940; J2003; J2250; J2405; J2704; J3010

== ENCOUNTER → 2024-06-03 06:27 | Outpatient (BNV) | payer OTHER, SELFPAY | PROVIDERS: PCP Family Medicine; Visit Provider Urology | DX: N20.0 Calculus of kidney (principal) | CPT/HCPCS: 50590 ==

== ENCOUNTER → 2024-06-03 11:55 | Outpatient (BNV) | payer OTHER, SELFPAY | PROVIDERS: PCP Family Medicine; Visit Provider Radiology Diagnostic Radiology | DX: N20.0 Calculus of kidney (principal) | CPT/HCPCS: 74018 ==

== ENCOUNTER 2024-06-16 09:39 | Outpatient (AMB) | payer OTHER, SELFPAY ==
--- NOTE | 2024-06-16 09:47 | A.OFFPC_ITS ---
Vital Signs 06/16/24 09:49 Height 5 ft 9 in Weight 225 lb 6 oz BMI 33.3 BP 138/84 Blood Pressure Location Lt brachial Respiration 16 Pulse 68 Pulse Source Pulse Oximeter Temp 98.2 F Temp Source Temporal Artery Scan Pulse Oximetry (%) 95 Oxygen Delivery Method Room Air Intake Visit Reasons: f/u hypertension, chronic conditions Intake Note: f/u HTN chronic conditions Allergies No Known Allergies Allergy (Verified 06/16/24 09:48) Medication List - Last Reconciled 06/16/24 by Balaji Tse MD atorvastatin 40 mg PO BEDTIME 90 days clonidine HCl 0.1 mg PO BID PRN 90 days finasteride 5 mg PO DAILY 90 days hydrochlorothiazide 25 mg See Protocol PO DAILY hydroxyzine pamoate 50 mg PO BID PRN 30 days olanzapine 20 mg PO BEDTIME 30 days oxycodone 5 mg PO .[id number] PRN pantoprazole 40 mg PO DAILY 90 days phenytoin sodium extended 300 mg (3 x 100 mg) PO DAILY 30 days Tobacco use date assessed: 12/17/23 Dental Screening Dental Screen Date: 12/17/23 HPI f/u hypertension, chronic conditions HPI Details 53 y/o male presents to f/u hypertension , chronic conditions. Blood pressure today 138/84, 68p. He is on hydrochlorothiazide 25mg daily. Notes he had recently went to the emergency department for panic attacks. Had been given hydroxyzine. [facility] Medical History (Updated 06/16/24 @ 10:01 by Keith Echols) Schizophrenia Polysubstance abuse Alcohol use disorder, moderate, in sustained remission, dependence HTN (hypertension) TBI (traumatic brain injury) Epilepsy Surgical History Hx of lithotripsy Family History Mother Substance abuse Social History Household Members: None Housing: Homeless Are you a primary post acute care nurse to a significant other at home: No Do you presently have visiting nurse or other home services: No Patient Tobacco Use Status: Former Tobacco user e-Cigarette/Vaping Use: Never Used Second Hand Smoke Exposure: No Substance Use Type: Former Substance User service: No Current occupational status: unemployed Current occupational exposures/hazards: No Sexual orientation: did not discuss. Cognitive needs: No Hearing needs: No Vision needs: No Questionnaire Thrive Questionnaire Date Thrive assessed: 09/19/22 AJMES-7 AMB Questionnaire JAMES-7 Date JAMES - 7 assessed: 12/17/23 Source: Developed by Drs. Holger Brumfield, Ria Cruz, Roger Alejo and colleagues, with an educational tamar from [employer]. Review of Systems Const Denies chills, Denies fatigue, Denies fever(s), Denies headache(s) and Denies weakness ENT Denies dizziness and Denies headache(s) Card Denies dyspnea Resp Denies cough, Denies dyspnea, Denies wheezing and Denies other (shortness of breath) Musc Denies numbness and Denies tingling Neuro Denies dizziness, Denies headache(s), Denies numbness, Denies tingling and Denies weakness Psych Reports anxiety and Denies depression Endo Denies fatigue Aller/Immun Denies wheezing Physical exam (Primary Care) Vital Signs: Last Vital Signs Temp 98.2 F 06/16/24 09:49 Pulse 68 06/16/24 09:49 Resp 16 06/16/24 09:49 BP 114/72 06/16/24 09:49 Pulse Ox 95 06/16/24 09:49 Oxygen Delivery Method Room Air 06/16/24 09:49 BMI result Body Mass Index 33.3 Tobacco/Smoking Status: Tobacco use Status Tobacco use date assessed 12/17/23 06/16/24 09:52 Patient Tobacco Use Status Former Tobacco user 06/16/24 09:52 e-Cigarette/Vaping Use Never Used 06/16/24 09:52 Thrive Assessment: Date of Thrive Assessment Date Thrive assessed 09/19/22 06/16/24 09:52 Const General: well developed; No acute distress Nutritional Appearance: well nourished Orientation/consciousness: patient oriented x3 HENMT Head: Yes normocephalic and Yes atraumatic Eyes General: appearance normal, both eyes and all related structures Pupils: Equal, round and reactive pupils present EOM: EOMs intact bilaterally Resp Effort & Inspection: normal respiratory effort Neuro General: patient oriented x3 and gait normal Cranial nerves: Yes Equal, round and reactive pupils present Psych Affect: normal affect Coding Level of Care Code Est Pt Level 3 (41505) Diagnoses HTN (hypertension) I10 Anxiety F41.9 Assessment & Plan Assessment & Plan (1) HTN (hypertension): Code(s): I10 - Essential (primary) hypertension Category: Medical Plan: Blood?pressures?have?been?elevated He?will?continue?hydrochlorothiazide Adding?metoprolol?which?will?help?keep? blood?pressure?controlled?as?well?as?help?with?anxiety-see?below (2) Anxiety: Code(s): F41.9 - Anxiety disorder, unspecified Category: Medical Plan: Anxiety?and?panic?attacks Will?give?him?a?script?for?metoprolol He?also?has?hydroxyzine?and?also?clonidine?which?he?does?not?take?every?day Medications: New metoprolol succinate ER 25 mg PO DAILY 90 days 90 tabs 1RF
[2024-06-16 09:49] VITALS: BP 138/84; PULSE 68; RESP 16; TEMP 36.8; O2SAT 95; BMI 33.3
== END 2024-06-16 10:12 | disposition home or self-care (01) ==
PROVIDERS: PCP Family Medicine; Visit Provider Family Medicine
DX: I10 Essential (primary) hypertension (principal); F41.9 Anxiety disorder, unspecified

== ENCOUNTER → 2024-06-16 09:39 | Outpatient (BNVA) | payer OTHER, SELFPAY | PROVIDERS: PCP Family Medicine; Visit Provider Family Medicine | DX: I10 Essential (primary) hypertension (principal); F41.9 Anxiety disorder, unspecified | CPT/HCPCS: 99212 ==

== ENCOUNTER 2024-07-01 12:19 | Outpatient (REF) | payer OTHER, SELFPAY ==
--- NOTE | ~2024-07-01 | US_ITS ---
EXAMINATION: US RETROPERITONEAL LIMITED (RENAL ONLY) CLINICAL INFORMATION: Calculus of kidney. COMPARISON: X-ray abdomen KUB 07/01/2024 and 06/03/2024. CT kidney stone 03/27/2023. Ultrasound kidneys and bladder 02/08/2023. TECHNIQUE: Real-time imaging of the kidneys. FINDINGS: RIGHT KIDNEY: 11.0 x 5.3 x 5.5 cm (SAG x AP x TRV). The kidney is normal in size, contour, and echogenicity. Renal cortical thickness is normal. No focal parenchymal lesions or hydronephrosis. An echogenic stone midpole measuring 0.8 x 0.4 x 1.0 seen. No caliectasis seen. There is no hydronephrosis. LEFT KIDNEY: 11.4 x 4.6 x 4.6 cm (SAG x AP x TRV). The kidney is normal in size, contour, and echogenicity. Renal cortical thickness is normal. No calculi or focal parenchymal lesions. No hydronephrosis. US/US renal BI IMPRESSION: 1. Nonobstructive 8 mm echogenic stone midpole right kidney. On previous examination stone measured 7 mm. 2. The left kidney is unremarkable. Electronically signed by: Kareem Siddiqi MD 07/01/2024 07:47 PM EDT
--- NOTE | ~2024-07-01 | XR_ITS ---
EXAMINATION: XR ABDOMEN KUB CLINICAL INDICATION: N40.0 - Benign prostatic hyperplasia without lower urinary tract symptoms COMPARISON: 06/03/2024, 05/20/2024, and dating back to 11/05/2023. TECHNIQUE: AP view of the abdomen. FINDINGS: Bowel gas pattern is normal/nonspecific. No dilated loops. There is an 8 mm oval calcification overlying the superior right renal shadow. This is unchanged from previous. No definite left calculi or suspicious pelvic calculi. No organomegaly or large abdominal mass. Hiatus hernia suspected. Normal osseous structures. XR/XR KUB IMPRESSION: -No significant interval change. -8 mm oval right upper pole renal calculus. Electronically signed by: Stephen Arguello MD 07/29/2024 02:54 PM [facility]
== END 2024-07-01 12:20 | disposition home or self-care (01) ==
LOC: HO.US 12:19
PROVIDERS: PCP Family Medicine; Visit Provider Urology
DX: N20.0 Calculus of kidney (principal); N40.0 Benign prostatic hyperplasia without lower urinary tract symptoms
CPT/HCPCS: 74018; 76775

== ENCOUNTER → 2024-07-01 12:21 | Outpatient (BNV) | payer OTHER, SELFPAY | PROVIDERS: PCP Family Medicine; Visit Provider Radiology Diagnostic Radiology | DX: N20.0 Calculus of kidney (principal) | CPT/HCPCS: 74018 ==

== ENCOUNTER 2024-07-15 12:28 | Outpatient (AMB) | payer OTHER, SELFPAY ==
--- NOTE | 2024-07-15 13:03 | MHC.OFFVIS ---
Intake Visit Reasons: ESWL- follow up/US/KUB(KUB Pending) Intake Note: Patient is present for ESWL- F/U US/KUB Urology Medication:FINASTERIDE Antibiotic Allergy:NONE Blood Thinner:NONE Packaging Materials Inspector Required: No Allergies No Known Allergies Allergy (Verified 07/15/24 13:05) HPI Comments Details: 07/15/2024--child's is a 53-year-old male who is status post right ESWL on 06/03/2024. He is here for follow-up. I have reviewed with him follow-up renal ultrasound 07/01/2024 and KUB 07/01/2024 notes that the right kidney stone is essentially unchanged. I have discussed repeat ESWL versus ureteroscopy with laser lithotripsy. The patient is agreeable to repeat right ESWL. [facility] Medical History Schizophrenia Polysubstance abuse Alcohol use disorder, moderate, in sustained remission, dependence HTN (hypertension) TBI (traumatic brain injury) Epilepsy Surgical History Hx of lithotripsy Family History Mother Substance abuse Social History Household Members: None Housing: Homeless Are you a primary director career services to a significant other at home: No Do you presently have visiting nurse or other home services: No Patient Tobacco Use Status: Former Tobacco user e-Cigarette/Vaping Use: Never Used Second Hand Smoke Exposure: No Substance Use Type: Former Substance User service: No Current occupational status: unemployed Current occupational exposures/hazards: No Sexual orientation: did not discuss. Cognitive needs: No Hearing needs: No Vision needs: No Review of Systems Const All systems reviewed & are unremarkable except as noted in HPI and below Reports no additional complaints Eyes Reports no additional complaints ENT Reports no additional complaints Card Reports no additional complaints Resp Reports no additional complaints GI Reports no additional complaints Reports as per HPI Musc Reports no additional complaints Skin/Breast Reports system reviewed and no additional complaints, except as documented Neuro Reports no additional complaints Psych Reports no additional complaints Endo Reports no additional complaints Bandar/Lymph Reports no additional complaints Aller/Immun Reports no additional complaints Results AMB Urinalysis, Automated UA Leukoctes 0 Wendy/uL Last Edit by JIMENA Mir on 07/15/24 13:15 UA Nitrite Last Edit by Mckayla Mera [facility] on 07/15/24 13:15 UA Urobilinogen 0.2 mg/dL Last Edit by Mckayla Mera [facility] on 07/15/24 13:15 UA Protein 15 mg/dL Last Edit by Mckayla Mera [facility] on 07/15/24 13:15 UA pH 6.0 Last Edit by Mckayla Mera [facility] on 07/15/24 13:15 UA Blood 0 Steve/uL Last Edit by Mckayla Mera [facility] on 07/15/24 13:15 UA Specific Wilbraham 1.025 Last Edit by Mckayla Mera [facility] on 07/15/24 13:15 UA Ketone Negative Last Edit by Mckayla Mera [facility] on 07/15/24 13:15 UA Bilirubin 0 mg/dL Last Edit by Mckayla Mera [facility] on 07/15/24 13:15 UA Glucose 0 mg/dL Last Edit by Mckayla Mera [facility] on 07/15/24 13:15 Results Reviewed Results Reviewed: Laboratory Last Values Urine pH (Auto) 6.0 07/15/24 13:13 Specific Wilbraham (Auto) 1.025 07/15/24 13:13 Urine Protein (Auto) 15 mg/dL 07/15/24 13:13 Glucose (UA)(Auto) 0 mg/dL 07/15/24 13:13 Urine Ketones (Auto) Negative 07/15/24 13:13 Urine Blood (Auto) 0 Steve/uL 07/15/24 13:13 Urine Bilirubin (Auto) 0 mg/dL 07/15/24 13:13 Urine Urobilinogen (Auto) 0.2 mg/dL 07/15/24 13:13 Leukocyte Esterase (Auto) 0 Wendy/uL 07/15/24 13:13 Date of Service: 07/01/24 US RETROPERITONEAL LIMITED (RENAL ONLY) CLINICAL INFORMATION: Calculus of kidney. COMPARISON: X-ray abdomen KUB 07/01/2024 and 06/03/2024. CT kidney stone 03/27/2023. Ultrasound kidneys and bladder 02/08/2023. TECHNIQUE: Real-time imaging of the kidneys. FINDINGS: RIGHT KIDNEY: 11.0 x 5.3 x 5.5 cm (SAG x AP x TRV). The kidney is normal in size, contour, and echogenicity. Renal cortical thickness is normal. No focal parenchymal lesions or hydronephrosis. An echogenic stone midpole measuring 0.8 x 0.4 x 1.0 seen. No caliectasis seen. There is no hydronephrosis. LEFT KIDNEY: 11.4 x 4.6 x 4.6 cm (SAG x AP x TRV). The kidney is normal in size, contour, and echogenicity. Renal cortical thickness is normal. No calculi or focal parenchymal lesions. No hydronephrosis. IMPRESSION: 1. Nonobstructive 8 mm echogenic stone midpole right kidney. On previous examination stone measured 7 mm. 2. The left kidney is unremarkable. Date of Service: 01/21/24 EXAMINATION: US RETROPERITONEAL LIMITED (RENAL ONLY) CLINICAL INFORMATION: Calculus of kidney. COMPARISON: X-ray KUB 01/01/2024 and 11/05/2023. CT kidney stone 03/27/2023. Renal ultrasound 02/08/2023. TECHNIQUE: Real-time imaging of the kidneys. Severely limited visualization due to bowel gas. FINDINGS: RIGHT KIDNEY: 11.1 x 5.8 x 5.3 cm (SAG x AP x TRV). No hydronephrosis. 7 mm right midpole calculus. Renal cortical thickness is normal. Limited visualization. LEFT KIDNEY: 10.5 x 5.0 x 5.2 cm (SAG x AP x TRV). No hydronephrosis. No renal calculi. Renal cortical thickness is normal. Limited visualization. IMPRESSION: 7 mm right midpole calculus. No hydronephrosis. Assessment & Plan Assessment & Plan (1) Nephrolithiasis: Code(s): N20.0 - Calculus of kidney Category: Medical Plan Schedule repeat right ESWL Orders: Orders AMB Urinalysis Automated Today Z13.9 - Encounter for screening, unspecified Patient Instructions: The patient had an opportunity to ask questions regarding treatment plan. The patient expressed understanding and agreement with the above treatment plan. The patient is aware they should contact our office by phone for worsening of their current condition or the appearance of new symptoms. Compliance is encouraged with any medications and followup testing that is ordered. It is a privilege to be allowed the opportunity to participate in the urologic care of your patient. If you have any questions or concerns regarding treatment for the above conditions please do not hesitate to contact me. The office telephone contact is [phone]. This note is constructed in part using voice recognition software. While every effort has been made to ensure accuracy cnc machinist errors may have been included. Yours sincerely, Shoaib Keith MD Coding Level of Care Code Global (38420) Diagnoses Nephrolithiasis N20.0
== END 2024-07-15 13:31 | disposition home or self-care (01) ==
PROVIDERS: PCP Family Medicine; Visit Provider Urology
DX: Z13.9 Encounter for screening, unspecified (principal); N20.0 Calculus of kidney
CPT/HCPCS: 99024

== ENCOUNTER → 2024-07-15 12:28 | Outpatient (BNVA) | payer OTHER, SELFPAY | PROVIDERS: PCP Family Medicine; Visit Provider Urology | DX: N20.0 Calculus of kidney (principal); Z48.816 Encounter for surgical aftercare following surgery on the genitourinary system; Z98.890 Other specified postprocedural states | CPT/HCPCS: 81003; 99212 ==

== ENCOUNTER 2024-08-12 09:09 | Outpatient (AMB) | payer OTHER, SELFPAY ==
--- NOTE | 2024-08-12 09:16 | A.OFFVIS_ITS ---
Intake Visit Reasons: 6m follow up Intake Note: Patient presents today for follow up on: Elevated PSA Urology Medications: finasteride Blood Thinner: none Roll Inspector Required: No Accompanied by: Self / Same As Patient Allergies No Known Allergies Allergy (Verified 08/12/24 09:47) Medication List - Last Reconciled 08/12/24 by ISHMAEL Mohamud atorvastatin 40 mg PO BEDTIME 90 days clonidine HCl 0.1 mg PO BID PRN 90 days finasteride 5 mg PO DAILY 90 days hydrochlorothiazide 25 mg See Protocol PO DAILY hydroxyzine pamoate 50 mg PO BID PRN 30 days metoprolol succinate ER 25 mg PO DAILY 90 days olanzapine 20 mg PO BEDTIME 30 days pantoprazole 40 mg PO DAILY 90 days phenytoin sodium extended 300 mg (3 x 100 mg) PO DAILY 30 days HPI Comments Details: Howard is a very pleasant 53-year-old male patient of Dr. Tse. He has a past medical history of schizophrenia, polysubstance abuse, alcohol use disorder, hypertension, epilepsy, and TBI. He presents to the office today for follow-up of his elevated PSA as well as nephrolithiasis. Of note, patient underwent right-sided ESWL with Dr. Dontae Rouse 01/01/2024 and 06/03/24 follow-up renal ultrasound 07/01/24 and KUB notes that the right kidney stone is essentially unchanged and plan is to repeat right-sided ESWL next week with Dr. Patel. He continues to report compliance with finasteride as prescribed. He currently denies any bothersome urinary issues or concerns. Previous/Initial workup has included a retroperitoneal ultrasound 02/22 noting several nonobstructing calculi noted within the right kidney, largest measuring approximately 1.3 cm there is no hydronephrosis. Left kidney with no calculi, lesions, and or hydronephrosis. The bladder was well distended and normal. Bilateral ureteral jets are demonstrated. Pre void bladder volume is approximately 290 mL. Postvoid bladder volume is approximately 210 mL. Prostate gland is enlarged and results in mass effect on the posterior bladder wall. Prostate volume 138ml's. Given increased volume of the prostate and mildly elevated PSA he was started on fi nasteride however despite compliance with finasteride he continues to have an elevated /labile PSA. PSAs are as follows: 01/22 4.1, 01/22 3.9 % free PSA 18%, 05/25 3.8, 10/26 3.2, 04/25 4.8 % free PSA 8% When asked he denies urinary urgency, urinary frequency, incontinence, nocturia, hematuria, dysuria, foul smelling urine, changes to urinary stream, flank pain, fever, and or chills. He is happy with his current voiding parameters. Discussed risks and benefits of prostate biopsy versus prostate MRI versus surveillance monitoring verses continuation of finasteride. In office urinalysis results reviewed with the patient today. He otherwise offers no issues or concerns at this time. [facility] Medical History Schizophrenia Polysubstance abuse Alcohol use disorder, moderate, in sustained remission, dependence HTN (hypertension) TBI (traumatic brain injury) Epilepsy Surgical History Hx of lithotripsy Family History Mother Substance abuse Social History Household Members: None Housing: Homeless Are you a primary sub acute care nurse to a significant other at home: No Do you presently have visiting nurse or other home services: No Patient Tobacco Use Status: Former Tobacco user e-Cigarette/Vaping Use: Never Used Second Hand Smoke Exposure: No Substance Use Type: Former Substance User service: No Current occupational status: unemployed Current occupational exposures/hazards: No Sexual orientation: did not discuss. Cognitive needs: No Hearing needs: No Vision needs: No Review of Systems Const Reports as per HPI Eyes Reports no additional complaints ENT Reports no additional complaints Card Reports as per HPI Resp Reports no additional complaints GI Reports no additional complaints Reports as per HPI Musc Reports no additional complaints Neuro Reports as per HPI Psych Reports as per HPI Endo Reports no additional complaints Bandar/Lymph Reports no additional complaints Aller/Immun Reports no additional complaints Physical Exam Const General: cooperative, healthy appearing, comfortable, no acute distress, well developed, alert and awake Orientation/consciousness: patient oriented x3 Limitations: no limitations HEENT Head: Yes normal to inspection, Yes normocephalic and Yes atraumatic Ears: hearing grossly normal bilaterally Eyes General: appearance normal, both eyes and all related structures Neck Neck: Yes normal visual inspection and Yes trachea midline Chest Chest palpation & inspection: normal inspection of the chest Resp Effort & Inspection: normal respiratory effort and able to speak in complete sentences Cardio Rate: regular rate GI Inspection: Yes normal to inspection Rectal Exam - Male: Yes deferred General: Yes no CVA tenderness Back/Spine/Pelvis Back: no CVA tenderness Skin General skin exam: no rashes or lesions noted Neuro General: patient oriented x3 Extrem General: Yes normal to inspection Psych Appearance: grossly normal and well kempt Mental Status: other (slow to respond ) Speech and movement: Normal speech and movement present and Clear speech present Affect: Other affect and mood findings present (flat ) Attitude: cooperative Thought content: Normal thought content present Insight: Fair insight present (Psych) Judgement: Fair judgement present (Psych) Results AMB Urinalysis, Automated UA Leukoctes 0 Wendy/uL Last Edit by [employer] on 08/12/24 09:32 UA Nitrite Last Edit by [employer] on 08/12/24 09:32 UA Urobilinogen 0.2 mg/dL Last Edit by [employer] on 08/12/24 09:32 UA Protein 0 mg/dL Last Edit by [employer] on 08/12/24 09:32 UA pH 7.0 Last Edit by [employer] on 08/12/24 09:32 UA Blood 0 Steve/uL Last Edit by Bi[employer] on 08/12/24 09:32 UA Specific [place] 1.015 Last Edit by Bi[employer] on 08/12/24 09:32 UA Ketone Last Edit by Bi[employer] on 08/12/24 09:32 UA Bilirubin 0 mg/dL Last Edit by [employer] on 08/12/24 09:32 UA Glucose 0 mg/dL Last Edit by Bi[employer] on 08/12/24 09:32 Results Reviewed Results Reviewed: Laboratory Last Values Urine pH (Auto) 7.0 08/12/24 09:22 Specific [place] (Auto) 1.015 08/12/24 09:22 Urine Protein (Auto) 0 mg/dL 08/12/24 09:22 Glucose (UA)(Auto) 0 mg/dL 08/12/24 09:22 Urine Blood (Auto) 0 Steve/uL 08/12/24 09:22 Urine Bilirubin (Auto) 0 mg/dL 08/12/24 09:22 Urine Urobilinogen (Auto) 0.2 mg/dL 08/12/24 09:22 Leukocyte Esterase (Auto) 0 Wendy/uL 08/12/24 09:22 Assessment & Plan Assessment & Plan (1) Enlarged prostate: Code(s): N40.0 - Benign prostatic hyperplasia without lower urinary tract symptoms Category: Medical (2) Nephrolithiasis: Code(s): N20.0 - Calculus of kidney Category: Medical (3) Elevated PSA: Code(s): R97.20 - Elevated prostate specific antigen [PSA] Category: Medical Plan In office urinalysis results with the patient today; as noted above. Recent PSA results reviewed the patient today; as noted above. We discussed potential causes of elevated PSA. Will redraw PSA with no sex the night before, no caffeine morning of, and no heavy lifting 1-2 days prior. Continue as planned with right-sided ESWL. We discussed further interventions for elevated PSA and risks and benefits of these interventions. Continue finasteride. ADOLFO offered however deferred. He denies any bothersome urinary issues. He reports to be happy with his current voiding parameters. Follow-up in 2-4 weeks with PSA to be completed prior; or sooner with any issues, concerns, and or questions. Orders: Orders AMB Urinalysis Automated Today Z13.9 - Encounter for screening, unspecified PSA,Total (Free>4and<10) Today N40.0 - Benign prostatic hyperplasia without lower urinary tract symptoms, R97.20 - Elevated prostate specific antigen [PSA] Patient Instructions: The patient had an opportunity to ask questions regarding the treatment plan. All questions were answered. Physical exam, labs, and imaging were discussed and reviewed in detail. As well as risks, benefits, and discussion of treatment choices. No major barriers to understanding were identified. The patient expressed understanding and agreement with the above treatment plan. The patient was made aware they should contact our office by phone for worsening of their current condition, the appearance of new symptoms, or with any questions or concerns. Compliance is encouraged with any medications and follow up testing that is ordered. It is a privilege to be allowed the opportunity to participate in? your urological care.? Again, if you have any questions or concerns If you have any questions or concerns please do not hesitate to contact me. The office is [phone]. This note is constructed using voice recognition software. While every effort has been made to ensure accuracy tavern operator errors may have been included. Yours sincerely, ISHMAEL Mohamud Coding Level of Care Code Est Pt Level 3 (91081) Complex EM visit Add On G2211 Diagnoses Enlarged prostate N40.0 Nephrolithiasis N20.0 Elevated PSA R97.20
== END 2024-08-12 10:04 | disposition home or self-care (01) ==
PROVIDERS: PCP Family Medicine; Visit Provider Nurse Practitioner Family
DX: N40.0 Benign prostatic hyperplasia without lower urinary tract symptoms (principal); N20.0 Calculus of kidney; R97.20 Elevated prostate specific antigen [PSA]; Z13.9 Encounter for screening, unspecified
CPT/HCPCS: 99024

== ENCOUNTER 2024-08-12 09:48 | Outpatient (REF) | payer OTHER, SELFPAY ==
[2024-08-12 11:41] LABS: PSA,Total (Free>4and<10) 5.13 ng/mL (0.00-4.00)
[2024-08-13 12:29] LABS: Free Prostate Spec Ag 0.5 ng/mL; Percent Free Prostate Spec Ag 9 % (calc) (>25); Prostate Specific Ag Total 5.3 ng/mL (< OR = 4.0)
== END 2024-08-12 09:49 | disposition home or self-care (01) ==
LOC: HO.10HDL 09:48
PROVIDERS: Visit Provider Nurse Practitioner Family
DX: Z12.5 Encounter for screening for malignant neoplasm of prostate (principal); N40.0 Benign prostatic hyperplasia without lower urinary tract symptoms; R97.20 Elevated prostate specific antigen [PSA]; N20.0 Calculus of kidney
CPT/HCPCS: 36415; 81003; 84153; 84154; 99212

== ENCOUNTER 2024-08-18 08:48 | Outpatient (AMB) | payer OTHER, SELFPAY ==
--- NOTE | 2024-08-18 09:37 | A.OFFPC_ITS ---
Vital Signs 08/18/24 09:38 Height 5 ft 9 in Weight 228 lb 2 oz BMI 33.7 BP 106/80 Blood Pressure Location Rt brachial Position Sitting Respiration 14 Pulse 63 Pulse Source Pulse Oximeter Pulse Oximetry (%) 96 Oxygen Delivery Method Room Air Intake Visit Reasons: f/u hypertension Intake Note: f/u for HTN Allergies No Known Allergies Allergy (Verified 08/18/24 09:37) Medication List - Last Reconciled 08/18/24 by Balaji Tse MD atorvastatin 40 mg PO BEDTIME 90 days clonidine HCl 0.1 mg PO BID PRN 90 days finasteride 5 mg PO DAILY 90 days hydrochlorothiazide 25 mg See Protocol PO DAILY hydroxyzine pamoate 50 mg PO BID PRN 30 days metoprolol succinate ER 25 mg PO DAILY 90 days olanzapine 20 mg PO BEDTIME 30 days pantoprazole 40 mg PO DAILY 90 days phenytoin sodium extended 300 mg (3 x 100 mg) PO DAILY 30 days Tobacco use date assessed: 12/17/23 Dental Screening Dental Screen Date: 12/17/23 HPI f/u hypertension HPI Details 53 y/o male presents to f/u hypertension . Blood pressure today 106/80, 63p. He is on metoprolol 25mg, HCTZ 25mg daily. JAMES-7 7, PHQ-9 3 today. Sees his therapist once a month. HPI Comments History of Present Illness Details Documentation assistance for Balaji Tse MD, was provided by Keith Echols,? Conference Coordinator on 08/18/2024 at 9:58 AM EST. I, Dr. Tse, have read, observed, and verified documentation. ?? [facility] Medical History (Updated 08/18/24 @ 09:58 by Keith Echols) Schizophrenia Polysubstance abuse Alcohol use disorder, moderate, in sustained remission, dependence HTN (hypertension) TBI (traumatic brain injury) Epilepsy Surgical History (Updated 08/17/24 @ 10:04 by Mellissa Shaw RN) Hx of lithotripsy Family History Mother Substance abuse Social History Household Members: None Housing: Homeless Are you a primary child care group leader to a significant other at home: No Do you presently have visiting nurse or other home services: No Patient Tobacco Use Status: Former Tobacco user e-Cigarette/Vaping Use: Never Used Second Hand Smoke Exposure: No Substance Use Type: Former Substance User service: No Current occupational status: unemployed Current occupational exposures/hazards: No Sexual orientation: did not discuss. Cognitive needs: No Hearing needs: No Vision needs: No Questionnaire PHQ-9 Over the last 2 weeks, how often have you been bothered by any of the following problems? 1. Little interest or pleasure in doing things: not at all 2. Feeling down, depressed, or hopeless: several days 3. Trouble falling or staying asleep, or sleeping too much: not at all 4. Feeling tired or having little energy: not at all 5. Poor appetite or overeating: not at all 6. Feeling bad about yourself - or that you are a failure or have let yourself or your family down: not at all 7. Trouble concentrating on things, such as reading the newspaper or watching television: more than half the days 8. Moving or speaking so slowly that other people could have noticed. Or the opposite - being so fidgety or restless that you have been moving around a lot more than usual: not at all 9. Thoughts that you would be better off or of hurting yourself in some way: not at all Total score: 3 Source: Developed by Drs. Holger Brumfield, Ria Cruz, Roger Alejo and colleagues, with an educational tamar from [employer]. Thrive Questionnaire Date Thrive assessed: 09/19/22 I am a: Patient What is your living situation today?: I choose not to answer this question Within the past 12 months, did the food you bought not last and you didn't have the money to get more?: Never true Within the past 12 months, did you worry whether your food would run out before you got money to buy more?: Never true Do you have trouble paying for medicines?: No Do you have trouble getting transportation to medical appointments?: No Do you have trouble paying your heating and electricity bill?: No Do you have trouble taking care of your child, family member or friend?: No Do you have trouble with day-to-day activities such as bathing, preparing meals, shopping, managing finances, etc.?: No Are you currently unemployed and looking for a job?: No Are you interested in more education?: Yes Please select the resources that you would like help with: Housing/Fpc Currently or been in a relationship where the following occur: No concerns reported THRIVE Score: 0 AUDIT C Alcohol Use Questionnaire (AUDIT-C) 1. How often do you have a drink containing alcohol?: Never Total Score: 0 JAMES-7 AMB Questionnaire JAMES-7 Date JAMES - 7 assessed: 12/17/23 Feeling nervous, anxious, or on edge: 1 = Several days Not being able to stop or control worryin = Several days Worrying too much about different things: 1 = Several days Trouble relaxin = Several days Being so restless that it is hard to sit still: 2 = More than half the days Becoming easily annoyed or irritable: 1 = Several days Feeling afraid as if something awful might happen: 0 = Not at all Total JAMES-7 score (0-4 normal; 5-9 mild; 10-14 moderate; 15-21 severe): 7 Source: Developed by Drs. Holger Brumfield, Ria Cruz, Roger Alejo and colleagues, with an educational tamar from [employer]. Review of Systems Const Denies chills, Denies fatigue, Denies fever(s), Denies headache(s) and Denies weakness ENT Denies dizziness and Denies headache(s) Card Denies dyspnea Resp Denies cough, Denies dyspnea, Denies wheezing and Denies other (shortness of b reath) Musc Denies numbness and Denies tingling Neuro Denies dizziness, Denies headache(s), Denies numbness, Denies tingling and Denies weakness Psych Denies anxiety and Denies depression Endo Denies fatigue Aller/Immun Denies wheezing Physical exam (Primary Care) Vital Signs: Last Vital Signs Pulse 63 08/18/24 09:38 Resp 14 08/18/24 09:38 BP 106/80 08/18/24 09:38 Pulse Ox 96 08/18/24 09:38 Oxygen Delivery Method Room Air 08/18/24 09:38 BMI result Body Mass Index 33.7 Tobacco/Smoking Status: Tobacco use Status Tobacco use date assessed 12/17/23 08/18/24 09:42 Patient Tobacco Use Status Former Tobacco user 08/18/24 09:42 e-Cigarette/Vaping Use Never Used 08/18/24 09:42 PHQ-9: PHQ-9 Score PHQ-9: Total score 3 08/18/24 09:42 Thrive Assessment: Date of Thrive Assessment Date Thrive assessed 09/19/22 08/18/24 09:42 Currently or been in a relationship where the following occur: No concerns reported Const General: well developed; No acute distress Nutritional Appearance: well nourished Orientation/consciousness: patient oriented x3 HENMT Head: Yes normocephalic and Yes atraumatic Eyes General: appearance normal, both eyes and all related structures Pupils: Equal, round and reactive pupils present EOM: EOMs intact bilaterally Resp Effort & Inspection: normal respiratory effort Neuro General: patient oriented x3 and gait normal Cranial nerves: Yes Equal, round and reactive pupils present Psych Affect: normal affect Coding Level of Care Code Est Pt Level 3 (98656) Diagnoses HTN (hypertension) I10 Depression with anxiety F41.8 Assessment & Plan Assessment & Plan (1) HTN (hypertension): Code(s): I10 - Essential (primary) hypertension Category: Medical Plan: Blood?pressure?is?controlled.??Goal?is?less?than?140/90 Continue?current?medication Hydrate?well (2) Depression with anxiety: Code(s): F41.8 - Other specified anxiety disorders Category: Medical Plan: Improved. Continue?current?regimen?of?olanzapine,?hydroxyzine?and?metoprolol. Follow-up?with?your?therapist Medications: Refilled hydroxyzine pamoate 50 mg PO BID 30 days PRN 60 caps 0RF anxiety metoprolol succinate ER 25 mg PO DAILY 90 days 90 tabs 1RF
[2024-08-18 09:38] VITALS: BP 106/80; PULSE 63; RESP 14; O2SAT 96; BMI 33.7
== END 2024-08-18 16:35 | disposition home or self-care (01) ==
PROVIDERS: PCP Family Medicine; Visit Provider Family Medicine
DX: I10 Essential (primary) hypertension (principal); F41.8 Other specified anxiety disorders

== ENCOUNTER → 2024-08-18 08:48 | Outpatient (BNVA) | payer OTHER, SELFPAY | PROVIDERS: PCP Family Medicine; Visit Provider Family Medicine | DX: I10 Essential (primary) hypertension (principal); F41.8 Other specified anxiety disorders | CPT/HCPCS: 96127; 99212 ==

== ENCOUNTER 2024-08-19 09:48 | Day surgery (SDC) | payer OTHER, SELFPAY ==
[2024-08-17 10:08] VITALS: BMI 33.2
--- NOTE | 2024-08-17 13:41 | HO.ANESPROP2 ---
Documented by User: Cici Finley NP 08/17/24 13:42 HPI - Anesthesia Eval Consult details Narrative: 53yo M for Right Lithotripsy ESW s/p same 06/2024 with GA-LMA 5 Hx polysub Hx TBI, epilepsy PMFSH Active Problems Active Problems: All Active Problems Anxiety (Acute) Enlarged prostate (Acute) Nephrolithiasis (Acute) Elevated PSA (Acute) Depression (Acute) Low back pain (Acute) Yeast infection of the skin (Acute) Hyperlipidemia (Acute) Thoracic kyphosis (Acute) Screening for prostate cancer (Acute) Screening for colon cancer (Acute) Adult general medical exam (Acute) History of seizures (Acute) History of substance abuse (Acute) Laboratory exam ordered as part of routine general medical examination (Acute) Chronic schizophrenia (Acute) TBI (traumatic brain injury) (Acute) HTN (hypertension) (Acute) Epilepsy (Acute) Past Medical History Medical History Schizophrenia Polysubstance abuse Alcohol use disorder, moderate, in sustained remission, dependence HTN (hypertension) TBI (traumatic brain injury) Epilepsy Family History Family History Mother Substance abuse Family history of problems with anesthesia: No Surgical History Surgical History Hx of lithotripsy History of Problems with Anesthesia: No Social History Social History Household Members: None Housing: Homeless Are you a primary patient care nursing assistant to a significant other at home: No Do you presently have visiting nurse or other home services: No Patient Tobacco Use Status: Former Tobacco user e-Cigarette/Vaping Use: Never Used Second Hand Smoke Exposure: No Use of substances other than those prescribed or required for medical reasons: No Substance Use Type: Former Substance User Are you DNR?: No Advance Directives: No Advance Directives Information Provided: Yes service: No Current occupational status: unemployed Current occupational exposures/hazards: No Sexual orientation: did not discuss. Cognitive needs: No Hearing needs: No Vision needs: No Meds Allergies Allergy/AdvReac Type Severity Reaction Status Date / Time No Known Allergies Allergy Verified 08/19/24 10:26 Exam Height,Weight and Vital Signs: Height 5 ft 9 in Weight 102.058 kg Assessment and Plan Assessment Anesthesia Assessment: Chart Reviewed Final Anesthetic Review Family History of Problems with Anesthesia: No History of Problems with Anesthesia: No Documented by User: Petra Rees MD 08/19/24 10:54 PMFSH Past Medical History Medical History Schizophrenia Polysubstance abuse Alcohol use disorder, moderate, in sustained remission, dependence HTN (hypertension) TBI (traumatic brain injury) Epilepsy Family History Family History Mother Substance abuse Surgical History Surgical History Hx of lithotripsy Social History Social History Household Members: None Housing: Homeless Are you a primary patient care nursing assistant to a significant other at home: No Do you presently have visiting nurse or other home services: No Patient Tobacco Use Status: Former Tobacco user e-Cigarette/Vaping Use: Never Used Second Hand Smoke Exposure: No Use of substances other than those prescribed or required for medical reasons: No Substance Use Type: Former Substance User Are you DNR?: No Advance Directives: No Advance Directives Information Provided: Yes service: No Current occupational status: unemployed Current occupational exposures/hazards: No Sexual orientation: did not discuss. Cognitive needs: No Hearing needs: No Vision needs: No Meds Allergies Allergy/AdvReac Type Severity Reaction Status Date / Time No Known Allergies Allergy Verified 08/19/24 10:26 Exam Airway Mallampati Class: II TM Dist: >3cm Neck ROM: Full Loose/Missing/Broken Teeth: No Heart: RRR Lungs: CTA Assessment and Plan Assessment Anesthesia Assessment: Anesthesia Plan Discussed Final Anesthetic Review NPO: Yes ASA Class: III Final Preanesthetic Review: Meds/Allgs Chart Reviewed, Consent Obtained/Reviewed and Anes Risks/Benef Reviewed Patient Risk: Intermediate Procedure Risk: Low Anesthetic Plan Anesthetic Plan: MAC: Disposition: Standard PACU
--- NOTE | ~2024-08-19 | XR_ITS ---
EXAMINATION: XR ABDOMEN KUB CLINICAL INDICATION: Right renal stone. COMPARISON: 07/01/2024. TECHNIQUE: 2 AP views of the abdomen. FINDINGS: Nonobstructive bowel gas pattern. Moderate amount of stool in the colon. Redemonstration of 8 mm oval calcification overlying the superior right renal shadow. No definitive left renal calculi appreciated. Degenerative changes in the lumbar spine. Small pelvic calcifications are likely phleboliths. Faint tubular structure overlying the lower left hemipelvis of uncertain etiology, possibly external to the patient, and correlation with clinical exam recommended. XR/XR KUB IMPRESSION: 1. Redemonstration of 8 mm oval calcification overlying the superior right renal shadow. No definitive left renal calculi appreciated. 2. Faint tubular structure overlying the lower left hemipelvis of uncertain etiology, possibly external to the patient, and correlation with clinical exam recommended. This study was presented today August 19, 2024 for interpretation. Stat results provided at this time as requested by referring provider. Electronically signed by: Alanis Fine MD 08/19/2024 11:35 AM SHMUEL NASSAR
--- NOTE | 2024-08-19 09:44 | MHC.SHP ---
Pre-Procedural Eval Section A - 24 Hr Update-Section A only Date of Service: 08/19/24 The patient is an INPATIENT: No Changes since office visit: No Cold of Flu in the past 2 weeks, No New Medical Problems, No Changes in Medication and No Patient answered all questions The patient has been examined within 24 hours of the surgical procedure. The History & Physical has been completed within 30 days and I have reviewed it.: Yes Section B - Complete if H&P > 30 days Chief Complaint: Calculus of kidney Allergies: Allergies Allergy/AdvReac Type Severity Reaction Status Date / Time No Known Allergies Allergy Verified 08/18/24 09:37 Plan I have reviewed the history and physical and performed a pertinent physical examination on my patient. No changes have occurred unless specified. Time Spent With Patient Time: Total time managing care of this patient today ____ minutes.
[2024-08-19 10:27] VITALS: BMI 32.8
[2024-08-19 10:30] VITALS: BP 116/82; PULSE 56; RESP 16; TEMP 36.9; O2SAT 94
[2024-08-19] MEDS: Lactated Ringers 1,000 ML 999 ML IV (10:53)
--- NOTE | 2024-08-19 11:17 | P.CONAN_ITS ---
FORMERLY [facility], 1928–1983 Active Problems Active Problems: All Active Problems (Updated 08/18/24 @ 09:58 by Keith Echols) Depression with anxiety (Acute) Anxiety (Acute) Enlarged prostate (Acute) Nephrolithiasis (Acute) Elevated PSA (Acute) Depression (Acute) Low back pain (Acute) Yeast infection of the skin (Acute) Hyperlipidemia (Acute) Thoracic kyphosis (Acute) Screening for prostate cancer (Acute) Screening for colon cancer (Acute) Adult general medical exam (Acute) History of seizures (Acute) History of substance abuse (Acute) Laboratory exam ordered as part of routine general medical examination (Acute) Chronic schizophrenia (Acute) TBI (traumatic brain injury) (Acute) HTN (hypertension) (Acute) Epilepsy (Acute) Past Medical History Medical History Schizophrenia Polysubstance abuse Alcohol use disorder, moderate, in sustained remission, dependence HTN (hypertension) TBI (traumatic brain injury) Epilepsy Family History Family History Mother Substance abuse Family history of problems with anesthesia: No Surgical History Surgical History Hx of lithotripsy History of Problems with Anesthesia: No Social History Social History Household Members: None Housing: Homeless Are you a primary palliative care nurse practitioner to a significant other at home: No Do you presently have visiting nurse or other home services: No Patient Tobacco Use Status: Former Tobacco user e-Cigarette/Vaping Use: Never Used Second Hand Smoke Exposure: No Use of substances other than those prescribed or required for medical reasons: No Substance Use Type: Former Substance User Are you DNR?: No Advance Directives: No Advance Directives Information Provided: Yes service: No Current occupational status: unemployed Current occupational exposures/hazards: No Sexual orientation: did not discuss. Cognitive needs: No Hearing needs: No Vision needs: No Meds Allergies Allergy/AdvReac Type Severity Reaction Status Date / Time No Known Allergies Allergy Verified 08/19/24 10:26 Active Medications: Current Medications Albuterol/Ipratropium (Albuterol/Iprat 2.5/0.5mg 3 Ml Ampul.Neb) 3 ml INHALE ONCE PRN PRN Reason: Bronchospasm/wheezing Stop: 12/18/24 16:55 Fentanyl (Fentanyl Citrate/Pf 100 Mcg/2 Ml Vial) 25 mcg IVPUSH Q5M PRN PRN Reason: Pain, Moderate to Severe (Pain Scale 4-10) Stop: 08/19/24 16:54 Lactated Ringer's (Lr) 1,000 mls @ 100 mls/hr IVCONT .Q10H CHRIS Naloxone HCl (Naloxone Hcl 0.4 Mg/Ml Vial) 0.04 mg IVPUSH Q5M PRN PRN Reason: Excessive sedation or RR < 8 Ondansetron HCl (Ondansetron Hcl 4 Mg/2 Ml Vial) 4 mg IVPUSH ONCE PRN PRN Reason: Nausea and Vomiting Stop: 08/19/24 16:55 Oxycodone HCl (Oxycodone Hcl Immed Release 5 Mg Tablet) 5 mg PO ONCE PRN PRN Reason: Pain, Moderate(Pain Scale 4-6) if no IV Access Stop: 08/19/24 16:54 Exam Height,Weight and Vital Signs: Height 5 ft 9 in Weight 100.698 kg Last Vital Signs Temp 98.4 F 08/19/24 10:30 Pulse 56 08/19/24 10:30 Resp 16 08/19/24 10:30 BP 116/82 08/19/24 10:30 Pulse Ox 94 08/19/24 10:30 O2 Del Method Room Air 08/19/24 10:30 Airway Mallampati Class: III TM Dist: >3cm Neck ROM: Full Loose/Missing/Broken Teeth: No Heart: RRR Lungs: CTA Assessment and Plan Assessment Anesthesia Assessment: Anesthesia Plan Discussed and Chart Reviewed Final Anesthetic Review Family History of Problems with Anesthesia: No History of Problems with Anesthesia: No NPO: Yes ASA Class: III Final Preanesthetic Review: Meds/Allgs Chart Reviewed, Consent Obtained/Reviewed and Anes Risks/Benef Reviewed Patient Risk: Intermediate Procedure Risk: Low Anesthetic Plan Anesthetic Plan: MAC: Disposition: Standard PACU
--- NOTE | 2024-08-19 11:27 | W.PM.OPN ---
Operative Note Operative Note Date of Service: 08/19/24 Narrative: PreOperative Diagnosis: Right Renal stones Post Operative Diagnosis: Right Renal stones Procedure: Right ESWL Surgeon: Dr Darnell Patel Anesthesia: mac/sedation Indications for procedure: The patient understands ESWL may be a staged procedure and subsequent intervention may be required based on imaging after ESWL. Quoted stone clearance rates for a solitary procedure are in the 70-80% range based primarily on stone location. They also understand there is a risk of bleeding to the kidney, infection, damage to adjacent organs, and stone migration following the procedure. - Imaging right 7 mm Procedure optimization has been performed with IV acetaminophen given in the holding area and 1 L of lactated Ringer's to be given in order to optimize the fluid-stone interface. 20 mg of IV Lasix will be given in the last 5 minutes of the procedure to optimize stone clearance. Procedure: After informed consent was verified the patient was brought to the operating room and placed in a supine position. Anesthesia was performed per protocol. Safety pause time-out was performed. Imaging was displayed in the room and laterality confirmed. ESWL was performed. The 1st 500 shocks were performed at 60 hertz. These were performed with increasing power. Once maximum power was reached the rate was increased to 180 hertz. A total of 2500 shocks were given. Targeted imaging with ultrasound/fluoroscopy showed stone smudging suggestive of disintegration. The patient tolerated the procedure well and was transferred to the recovery area upon completion. Post procedure imaging will be organized. There was no evidence for flank discoloration.
[2024-08-19 11:37] VITALS: BP 104/72; PULSE 59; RESP 18; TEMP 36.3; O2SAT 98
[2024-08-19 11:42] VITALS: BP 109/74; PULSE 63; RESP 16; O2SAT 98
[2024-08-19 11:56] VITALS: BP 124/86; PULSE 64; RESP 18; TEMP 36.1; O2SAT 96
== END 2024-08-19 12:42 | disposition home or self-care (01) ==
PROVIDERS: PCP Family Medicine; Visit Provider Urology
PROC: (CPT 50590; principal; 2024-08-19 10:30)
DX: N20.0 Calculus of kidney (principal); Z87.442 Personal history of urinary calculi; N40.0 Benign prostatic hyperplasia without lower urinary tract symptoms; R97.20 Elevated prostate specific antigen [PSA]; F20.9 Schizophrenia, unspecified; Z87.820 Personal history of traumatic brain injury; G40.909 Epilepsy, unspecified, not intractable, without status epilepticus; I10 Essential (primary) hypertension; F19.10 Other psychoactive substance abuse, uncomplicated; F10.91 Alcohol use, unspecified, in remission; Z79.899 Other long term (current) drug therapy; Z87.891 Personal history of nicotine dependence; Z56.0 Unemployment, unspecified
CPT/HCPCS: 50590; 74018; J0131; J1940; J2003; J2250; J2704

== ENCOUNTER → 2024-08-19 09:48 | Outpatient (BNV) | payer OTHER, SELFPAY | PROVIDERS: PCP Family Medicine; Visit Provider Urology | DX: N20.0 Calculus of kidney (principal) | CPT/HCPCS: 50590 ==

== ENCOUNTER 2024-09-03 11:12 | Outpatient (AMB) | payer OTHER, SELFPAY ==
--- NOTE | 2024-09-03 11:27 | A.OFFVIS_ITS ---
Intake Visit Reasons: 3m/PSA(set) Intake Note: Patient presents today for follow up on: Elevated PSA and psa lab results PSA: 5.3 Urology Medications: finasteride Blood Thinner: none Owner Oral Surgeon Required: No Accompanied by: Self / Same As Patient Allergies No Known Allergies Allergy (Verified 09/03/24 11:51) Medication List - Last Reconciled 09/03/24 by ISHMAEL Mohamud atorvastatin 40 mg PO BEDTIME 90 days clonidine HCl 0.1 mg PO BID PRN 90 days finasteride 5 mg PO DAILY 90 days hydrochlorothiazide 25 mg See Protocol PO DAILY hydroxyzine pamoate 50 mg PO BID PRN 30 days levofloxacin 500 mg PO daily 3 days metoprolol succinate ER 25 mg PO DAILY 90 days olanzapine 20 mg PO BEDTIME 30 days pantoprazole 40 mg PO DAILY 90 days phenytoin sodium extended 300 mg (3 x 100 mg) PO DAILY 30 days HPI Comments Details: Ritchie is a very pleasant 53-year-old male patient of Dr. Tse. He has a past medical history of schizophrenia, polysubstance abuse, alcohol use disorder, hypertension, epilepsy, and TBI. He presents to the office today for follow-up of his elevated PSA as well as nephrolithiasis. Of note, patient underwent right-sided ESWL with Dr. Dontae Rouse 01/01/2024 and 06/03/24. Followed by repeat right-sided ESWL with Dr. Patel 08/19/24. However, he is following up today regarding his elevated PSA in the setting of compliance with finasteride. Recent PSA results reviewed with the patient today. As noted and trended below... 01/22 4.1, 01/22 3.9 % free PSA 18%, 05/25 3.8, 10/26 3.2, 04/25 4.8 % free PSA 8%, 08/25 5.3 and% free PSA 9%. Previous workup has included a retroperitoneal ultrasound 02/22 noting prostate volume 138ml's at which time patient was started on finasteride however given compliance and PSA continues to rise we discussed further workup to include MRI of the prostate versus prostate biopsy. Risks and benefits of these interventions were discussed. When asked he denies urinary urgency, urinary frequency, incontinence, nocturia, hematuria, dysuria, foul smelling urine, changes to urinary stream, flank pain, fever, and or chills. He is happy with his current voiding parameters. In office urinalysis results reviewed with the patient today. He otherwise offers no issues or concerns at this time. [facility] Medical History Schizophrenia Polysubstance abuse Alcohol use disorder, moderate, in sustained remission, dependence HTN (hypertension) TBI (traumatic brain injury) Epilepsy Surgical History Hx of lithotripsy Family History Mother Substance abuse Social History Household Members: None Housing: Homeless Are you a primary reservoir caretaker to a significant other at home: No Do you presently have visiting nurse or other home services: No Patient Tobacco Use Status: Former Tobacco user e-Cigarette/Vaping Use: Never Used Second Hand Smoke Exposure: No Substance Use Type: Former Substance User service: No Current occupational status: unemployed Current occupational exposures/hazards: No Sexual orientation: did not discuss. Cognitive needs: No Hearing needs: No Vision needs: No Review of Systems Const Reports as per HPI Eyes Reports no additional complaints ENT Reports no additional complaints Card Reports as per HPI Resp Reports no additional complaints GI Reports no additional complaints Reports as per HPI Musc Reports no additional complaints Neuro Reports as per HPI Psych Reports as per HPI Endo Reports no additional complaints Bandar/Lymph Reports no additional complaints Aller/Immun Reports no additional complaints Physical Exam Const General: cooperative, healthy appearing, comfortable, no acute distress, well developed, alert and awake Orientation/consciousness: patient oriented x3 Limitations: no limitations HEENT Head: Yes normal to inspection, Yes normocephalic and Yes atraumatic Ears: hearing grossly normal bilaterally Eyes General: appearance normal, both eyes and all related structures Neck Neck: Yes normal visual inspection and Yes trachea midline Chest Chest palpation & inspection: normal inspection of the chest Resp Effort & Inspection: normal respiratory effort and able to speak in complete sentences Cardio Rate: regular rate GI Inspection: Yes normal to inspection Rectal Exam - Male: Yes deferred General: Yes no CVA tenderness Back/Spine/Pelvis Back: no CVA tenderness Skin General skin exam: no rashes or lesions noted Neuro General: patient oriented x3 Extrem General: Yes normal to inspection Psych Appearance: grossly normal and well kempt Mental Status: other (slow to respond ) Speech and movement: Normal speech and movement present and Clear speech present Affect: Other affect and mood findings present (flat ) Attitude: cooperative Thought content: Normal thought content present Insight: Fair insight present (Psych) Judgement: Fair judgement present (Psych) Results AMB Urinalysis, Automated UA Leukoctes 0 Wendy/uL Last Edit by [employer] on 09/03/24 11:48 UA Nitrite Last Edit by [employer] on 09/03/24 11:48 UA Urobilinogen 0.2 mg/dL Last Edit by [employer] on 09/03/24 11:48 UA Protein 0 mg/dL Last Edit by [employer] on 09/03/24 11:48 UA pH 6.0 Last Edit by [employer] on 09/03/24 11:48 UA Blood 0 Steve/uL Last Edit by [employer] on 09/03/24 11:48 UA Specific [place] 1.025 Last Edit by [employer] on 09/03/24 11:48 UA Ketone Negative Last Edit by [employer] on 09/03/24 11:48 UA Bilirubin 0 mg/dL Last Edit by [employer] on 09/03/24 11:48 UA Glucose 0 mg/dL Last Edit by [employer] on 09/03/24 11:48 Results Reviewed Results Reviewed: Laboratory Last Values Urine pH (Auto) 6.0 09/03/24 11:46 Specific [place] (Auto) 1.025 09/03/24 11:46 Urine Protein (Auto) 0 mg/dL 09/03/24 11:46 Glucose (UA)(Auto) 0 mg/dL 09/03/24 11:46 Urine Ketones (Auto) Negative 09/03/24 11:46 Urine Blood (Auto) 0 Steve/uL 09/03/24 11:46 Urine Bilirubin (Auto) 0 mg/dL 09/03/24 11:46 Urine Urobilinogen (Auto) 0.2 mg/dL 09/03/24 11:46 Leukocyte Esterase (Auto) 0 Wendy/uL 09/03/24 11:46 Assessment & Plan Assessment & Plan (1) Enlarged prostate: Code(s): N40.0 - Benign prostatic hyperplasia without lower urinary tract symptoms Category: Medical (2) Nephrolithiasis: Code(s): N20.0 - Calculus of kidney Category: Medical (3) Elevated PSA: Code(s): R97.20 - Elevated prostate specific antigen [PSA] Category: Medical Plan: Plan Risks and benefits regarding trans rectal ultrasound with prostate biopsy were discussed.? Options of continued surveillance, no treatment and biopsy were offered. The risks include but are not limited to, urinary tract infection, sepsis, difficulty urinating, bleeding into the rectum or bladder that requires intervention and transfusion,and failure to diagnose prostate cancer. The patient understands the options and the risks involved. They wish to proceed. Printed information was provided to ensure he remains off anticoagulation for the appropriate length of time. He may require cardiology or PCP clearance.? An antibiotic will be administered prior to, and following the procedure Plan In office urinalysis results reviewed with the patient today; as noted above. Recent PSA results reviewed with the patient today; as noted above. We discussed further treatment options of elevated PSA to include surveillance monitoring verses MRI of the prostate verses prostate biopsy; risks and benefits of these interventions were discussed. Continue finasteride as discussed and prescribed. Will schedule for prostate biopsy as discussed. Prescription provided for antibiotic therapy postprocedure; we discussed importance of taking medication day before procedure, day of procedure, and day after surgical procedure. All questions were answered. Follow-up per doctor's orders; or sooner with any issues, concerns, and or questions. Orders: Orders AMB Urinalysis Automated Today Z13.9 - Encounter for screening, unspecified Medications: New levofloxacin take 1 tablet day before procedure, 1 tablet day of procedure and 1 tablet day after procedure 500 mg PO daily 3 days 3 tabs 0RF Patient Instructions: The patient had an opportunity to ask questions regarding the treatment plan. All questions were answered. Physical exam, labs, and imaging were discussed and reviewed in detail. As well as risks, benefits, and discussion of treatment choices. No major barriers to understanding were identified. The patient expressed understanding and agreement with the above treatment plan. The patient was made aware they should contact our office by phone for worsening of their current condition, the appearance of new symptoms, or with any questions or concerns. Compliance is encouraged with any medications and follow up testing that is ordered. It is a privilege to be allowed the opportunity to participate in? your urological care.? Again, if you have any questions or concerns If you have any questions or concerns please do not hesitate to contact me. The office is [phone]. This note is constructed using voice recognition software. While every effort has been made to ensure accuracy bag tester errors may have been included. Yours sincerely, ISHMAEL Mohamud Coding Level of Care Code Est Pt Level 4 (36356) Complex EM visit Add On G2211 Diagnoses Enlarged prostate N40.0 Nephrolithiasis N20.0 Elevated PSA R97.20
== END 2024-09-03 11:49 | disposition home or self-care (01) ==
PROVIDERS: PCP Family Medicine; Visit Provider Nurse Practitioner Family
DX: N40.0 Benign prostatic hyperplasia without lower urinary tract symptoms (principal); R97.20 Elevated prostate specific antigen [PSA]; Z13.9 Encounter for screening, unspecified
CPT/HCPCS: 99214; G2211

== ENCOUNTER → 2024-09-03 11:12 | Outpatient (BNVA) | payer OTHER, SELFPAY | PROVIDERS: PCP Family Medicine; Visit Provider Nurse Practitioner Family | DX: N40.0 Benign prostatic hyperplasia without lower urinary tract symptoms (principal); N20.0 Calculus of kidney; R97.20 Elevated prostate specific antigen [PSA] | CPT/HCPCS: 81003; 99212 ==

== ENCOUNTER 2024-09-11 10:13 | Outpatient (REF) | payer OTHER, SELFPAY ==
--- NOTE | ~2024-09-11 | US_ITS ---
CLINICAL HISTORY: N20.0 - Calculus of kidney Exam: Ultrasound of the kidneys. Comparison: July 01, 2024. Findings: Right kidney measures 10.9 x 5.0 x 5.5 cm in size. Unchanged calculus within the interpolar region of the right kidney measures 8 x 5 x 9 mm in size. No hydronephrosis or perinephric fluid collections. Left kidney measures 12.0 x 4.6 x 4.4 cm in size. Left kidney is of normal echotexture without focal lesion, nephrolithiasis, or hydronephrosis. Impression: Unchanged nonobstructing right renal calculus. This document has been electronically signed by: Clint Juan MD on 09/12/2024 06:50:09
== END 2024-09-11 10:14 | disposition home or self-care (01) ==
LOC: HO.US 10:13
PROVIDERS: PCP Family Medicine; Visit Provider Urology
DX: N20.0 Calculus of kidney (principal)
CPT/HCPCS: 76775

== ENCOUNTER → 2024-09-11 10:15 | Outpatient (BNV) | payer OTHER, SELFPAY | PROVIDERS: PCP Family Medicine; Visit Provider Radiology Diagnostic Radiology | DX: N20.0 Calculus of kidney (principal) | CPT/HCPCS: 76775 ==

== ENCOUNTER 2024-09-22 07:23 | Outpatient (REF) | payer OTHER, SELFPAY ==
[2024-09-22] MEDS: Lidocaine HCl 1 % MPF 5 ML VIAL 10 ML SUBCUT (08:36)
--- NOTE | 2024-09-23 16:44 | P.OP_ITS ---
Operative Note Operative Note Date of Service: 09/23/24 Narrative: Preoperative diagnosis: Elevated PSA Postoperative diagnosis: Elevated PSA Procedure: 1. transrectal ultrasound measurement of prostate 2. transrectal ultrasound-guided pudendal nerve block 3. transrectal ultrasound-guided prostate biopsy 12 core Surgeon: Dr. Darnell Patel Anesthetic: 10cc 1% lidocaine Indications for procedure: Elevated PSA 5.2 Counselling: Technical aspects, risks and benefits of proposed procedure were discussed in full. All questions have been answered, written consent has been obtained and patient agrees to proceed. Procedure: The patient was brought into the procedure area and placed in a left lateral decubitus position. Patient identity confirmed. Perioperative antibiotics confirmed. Safety pause time out performed. ADOLFO was performed to dilate rectal sphincter Iodine 10cc with 60 cc gel was placed per rectum to reduce infection risk using a catheter tip syringe. 8 Hz Nat rectal end-fire ultrasound probe was placed transrectally without difficulty. The prostate was visualized. Seminal vesicles were normal. Prostate margins were clearly demarcated. Bladder was seen superiorly. Small bilateral cystic structures were noted No calcifications were noted at the surgical margin The prostate was otherwise heterogenous in nature - BPH type whorls centrally The prostate was measured in 3 dimensions Prostatic Width: 4.5 cm Prostatic Height: 3.9 cm Urethral Length: 5.4 cm Total volume equals : 50 ml An ultrasound-guided pudendal nerve block was performed using a 22 gauge spinal needle in the sagittal plane. 4 cc of 1% lidocaine placed at the junction of each seminal vesicle and 2 cc placed at the apex of the prostate. A 12 core biopsy was performed with 6 cores each side using an 18 gauge prostate biopsy gun. Two cores each were taken at the prostate apex, mid and base on each side. Cores were spaced between lateral and medial aspects. Each core was examined as placed on specimen foam as part of quality assurance supervisor chassis to ensure a minimum 1 cm of length and minimal discontinuity. He tolerated the procedure well with minimal rectal bleeding. Blood pressure remained stable following procedure. He was able to ambulate to bathroom after 5 minutes. Printed instructions regarding antibiotic use and common adverse events from the procedure such as low-grade temperature, potential infection and bleeding were given. He understands to call the office or go to an emergency room should any of these events arise. Pathology: 12 core prostate biopsy. CPT code 40169: Transrectal ultrasound; this is a diagnostic test for evaluation of the prostate and surrounding structures, looking for abnormalities or suspicious areas worrisome for cancer CPT code 96288: Biopsy, prostate; needle or punch, single or multiple, any approach CPT code 42215: Ultrasonic guidance for needle placement (eg, biopsy, aspiration, injection, localization device), imaging supervision and interpretation
== END 2024-09-22 07:24 | disposition home or self-care (01) ==
LOC: HO.US 07:23
PROVIDERS: PCP Family Medicine; Visit Provider Urology
DX: R97.20 Elevated prostate specific antigen [PSA] (principal)
CPT/HCPCS: 55700; 76942; 88305; J2003

== ENCOUNTER → 2024-09-22 07:23 | Outpatient (BNV) | payer OTHER, SELFPAY | PROVIDERS: PCP Family Medicine; Visit Provider Urology | DX: R97.20 Elevated prostate specific antigen [PSA] (principal) | CPT/HCPCS: 55700; 76872; 76942 ==

== ENCOUNTER 2024-10-02 13:10 | Outpatient (AMB) | payer OTHER, SELFPAY ==
--- NOTE | 2024-10-02 14:15 | MHC.OFFVIS ---
Intake Visit Reasons: FU prostate biopsy Intake Note: Patient is present for Prostate Biopsy Results Urology Med: Finasteride (PCP Prescribes) Clerical Coordinator Required: No Allergies No Known Allergies Allergy (Verified 09/03/24 11:51) HPI Comments Details: 10/02/24--s/p prostate biopsy --09/22/24 Results- benign prostate tissue. Plan repeat PSA in 6 months, cont proscar. 09/06/24--Ritchie is a very pleasant 53-year-old male patient of Dr. Tse. He has a past medical history of schizophrenia, polysubstance abuse, alcohol use disorder, hypertension, epilepsy, and TBI. He presents to the office today for follow-up of his elevated PSA as well as nephrolithiasis. Of note, patient underwent right-sided ESWL with Dr. Dontae Rouse 01/01/2024 and 06/03/24. Followed by repeat right-sided ESWL with Dr. Patel 08/19/24. However, he is following up today regarding his elevated PSA in the setting of compliance with finasteride. Recent PSA results reviewed with the patient today. As noted and trended below: 01/22 4.1, 01/22 3.9 % free PSA 18%, 05/25 3.8, 10/26 3.2, 04/25 4.8 % free PSA 8%, 08/25 5.3 and% free PSA 9%. Previous workup has included a retroperitoneal ultrasound 02/22 noting prostate volume 138ml's at which time patient was started on finasteride however given compliance and PSA continues to rise we discussed further workup to include MRI of the prostate versus prostate biopsy. Risks and benefits of these interventions were discussed. When asked he denies urinary urgency, urinary frequency, incontinence, nocturia, hematuria, dysuria, foul smelling urine, changes to urinary stream, flank pain, fever, and or chills. He is happy with his current voiding parameters. In office urinalysis results reviewed with the patient today. He otherwise offers no issues or concerns at this time. [facility] Medical History Schizophrenia Polysubstance abuse Alcohol use disorder, moderate, in sustained remission, dependence HTN (hypertension) TBI (traumatic brain injury) Epilepsy Surgical History Hx of lithotripsy Family History Mother Substance abuse Social History Household Members: None Housing: Homeless Are you a primary child care lead teacher to a significant other at home: No Do you presently have visiting nurse or other home services: No Patient Tobacco Use Status: Former Tobacco user e-Cigarette/Vaping Use: Never Used Second Hand Smoke Exposure: No Substance Use Type: Former Substance User service: No Current occupational status: unemployed Current occupational exposures/hazards: No Sexual orientation: did not discuss. Cognitive needs: No Hearing needs: No Vision needs: No Review of Systems Const All systems reviewed & are unremarkable except as noted in HPI and below Reports no additional complaints Eyes Reports no additional complaints ENT Reports no additional complaints Card Reports no additional complaints Resp Reports no additional complaints GI Reports no additional complaints Reports as per HPI Musc Reports no additional complaints Skin/Breast Reports system reviewed and no additional complaints, except as documented Neuro Reports no additional complaints Psych Reports no additional complaints Endo Reports no additional complaints Bandar/Lymph Reports no additional complaints Aller/Immun Reports no additional complaints Results Reviewed Results Reviewed: Prostate biopsies--Collected: 09/22/24 Location: [facility] Received: 09/22/24 Diagnosis A: Left base lateral: Benign prostatic tissue. B: Left base medial: Benign prostatic tissue. C: Left mid lateral: Benign prostatic tissue. D: Left mid medial: Benign prostatic tissue. E: Left apex lateral: Benign prostatic tissue. F: Left apex medial: Benign prostatic tissue. G: Right base lateral: Benign prostatic tissue. H: Right base medial: Benign prostatic tissue. I: Right mid lateral: Benign prostatic tissue. J: Right mid medial: Benign prostatic tissue. K: Right apex lateral: Benign prostatic tissue. L: Right apex medial: Benign prostatic tissue. Clinical History Elevated PSA Date of Service: 07/01/24 US RETROPERITONEAL LIMITED (RENAL ONLY) CLINICAL INFORMATION: Calculus of kidney. COMPARISON: X-ray abdomen [facility] 07/01/2024 and 06/03/2024. CT kidney stone 03/27/2023. Ultrasound kidneys and bladder 02/08/2023. TECHNIQUE: Real-time imaging of the kidneys. FINDINGS: RIGHT KIDNEY: 11.0 x 5.3 x 5.5 cm (SAG x AP x TRV). The kidney is normal in size, contour, and echogenicity. Renal cortical thickness is normal. No focal parenchymal lesions or hydronephrosis. An echogenic stone midpole measuring 0.8 x 0.4 x 1.0 seen. No caliectasis seen. There is no hydronephrosis. LEFT KIDNEY: 11.4 x 4.6 x 4.6 cm (SAG x AP x TRV). The kidney is normal in size, contour, and echogenicity. Renal cortical thickness is normal. No calculi or focal parenchymal lesions. No hydronephrosis. IMPRESSION: 1. Nonobstructive 8 mm echogenic stone midpole right kidney. On previous examination stone measured 7 mm. 2. The left kidney is unremarkable. Date of Service: 01/21/24 EXAMINATION: US RETROPERITONEAL LIMITED (RENAL ONLY) CLINICAL INFORMATION: Calculus of kidney. COMPARISON: X-ray K[facility] 01/01/2024 and 11/05/2023. CT kidney stone 03/27/2023. Renal ultrasound 02/08/2023. TECHNIQUE: Real-time imaging of the kidneys. Severely limited visualization due to bowel gas. FINDINGS: RIGHT KIDNEY: 11.1 x 5.8 x 5.3 cm (SAG x AP x TRV). No hydronephrosis. 7 mm right midpole calculus. Renal cortical thickness is normal. Limited visualization. LEFT KIDNEY: 10.5 x 5.0 x 5.2 cm (SAG x AP x TRV). No hydronephrosis. No renal calculi. Renal cortical thickness is normal. Limited visualization. IMPRESSION: 7 mm right midpole calculus. No hydronephrosis. Assessment & Plan Assessment & Plan (1) Elevated PSA: Code(s): R97.20 - Elevated prostate specific antigen [PSA] Category: Medical (2) BPH with elevated PSA: Code(s): N40.0 - Benign prostatic hyperplasia without lower urinary tract symptoms; R97.20 - Elevated prostate specific antigen [PSA] Category: Medical (3) Nephrolithiasis: Code(s): N20.0 - Calculus of kidney Category: Medical Plan Repeat PSA in 6 months fu with Justyna flores proscar Orders: Orders PSA,Total (Free>4and<10) 5 Months N40.0 - Benign prostatic hyperplasia without lower urinary tract symptoms, R97.20 - Elevated prostate specific antigen [PSA] Patient Instructions: The patient had an opportunity to ask questions regarding treatment plan. The patient expressed understanding and agreement with the above treatment plan. The patient is aware they should contact our office by phone for worsening of their current condition or the appearance of new symptoms. Compliance is encouraged with any medications and followup testing that is ordered. It is a privilege to be allowed the opportunity to participate in the urologic care of your patient. If you have any questions or concerns regarding treatment for the above conditions please do not hesitate to contact me. The office telephone contact is [phone]. This note is constructed in part using voice recognition software. While every effort has been made to ensure accuracy passenger car upholsterer apprentice errors may have been included. Yours sincerely, Shoaib Keith MD Coding Level of Care Code Est Pt Level 3 (79930) Diagnoses Elevated PSA R97.20 BPH with elevated PSA N40.0; R97.20 Nephrolithiasis N20.0
== END 2024-10-02 14:44 | disposition home or self-care (01) ==
PROVIDERS: PCP Family Medicine; Visit Provider Urology
DX: R97.20 Elevated prostate specific antigen [PSA] (principal); N40.0 Benign prostatic hyperplasia without lower urinary tract symptoms; N20.0 Calculus of kidney
CPT/HCPCS: 99024

== ENCOUNTER → 2024-10-02 13:10 | Outpatient (BNVA) | payer OTHER, SELFPAY | PROVIDERS: PCP Family Medicine; Visit Provider Urology | DX: R97.20 Elevated prostate specific antigen [PSA] (principal); N40.0 Benign prostatic hyperplasia without lower urinary tract symptoms; N20.0 Calculus of kidney | CPT/HCPCS: 99212 ==

== ENCOUNTER 2025-03-17 09:01 | Outpatient (REF) | payer OTHER, SELFPAY ==
[2025-03-17 11:52] LABS: PSA,Total (Free>4and<10) 5.21 ng/mL (0.00-4.00)
[2025-03-18 12:29] LABS: Free Prostate Spec Ag 0.4 ng/mL; Percent Free Prostate Spec Ag 9 % (calc) (>25)
== END 2025-03-17 09:02 | disposition home or self-care (01) ==
LOC: HO.10HDL 09:01
PROVIDERS: Visit Provider Urology
DX: N40.0 Benign prostatic hyperplasia without lower urinary tract symptoms (principal); R97.20 Elevated prostate specific antigen [PSA]
CPT/HCPCS: 36415; 84153; 84154

== ENCOUNTER 2025-03-18 08:38 | Outpatient (REF) | payer OTHER, SELFPAY ==
[2025-03-18 11:05] LABS: MANUAL DIFF FLAG NO
[2025-03-18 11:15] LABS: Hematocrit 43.7 % (42.0-52.0); Hemoglobin 15.9 g/dl (14.0-18.0); Imm Gran Abs Auto 0.01 X10*3/uL (0.00-0.03); Imm Gran Pct Auto 0.2 % (0.0-0.4); Lymphocytes Absolute Auto 1.9 X10*3/uL (1.2-4.9); Mean Corpuscular HGB Conc 36.4 g/dl (31.0-36.0); Mean Corpuscular Hemoglobin 31.7 pg (27.0-33.0); Mean Corpuscular Volume 87.1 fL (80.0-98.0); NRBC Abs Auto 0.000 X10*3/uL (0.0-0.012); NRBC Pct Auto 0.0 /100WBC (0.0-0.2); Platelet Count 213 X10*3/uL (160-400); Red Blood Count 5.02 X10*6/uL (4.60-5.80); White Blood Count 6.0 X10*3/uL (4.8-10.8)
[2025-03-18 11:33] LABS: Alanine Aminotransferase 30 U/L (0-40); Albumin Level 4.7 g/dL (3.5-5.0); Alkaline Phosphatase 131 U/L (39-117); Anion Gap 12 (12-20); Aspartate Amino Transferase 28 U/L (5-37); Blood Urea Nitrogen 14 mg/dL (9-16); Calcium 9.4 mg/dL (8.4-10.2); Carbon Dioxide 29 mmol/L (22-29); Chloride 106 mmol/L (96-108); Cholesterol 154 mg/dL (<200); Estimated Glomerular Filt Rate > 60; HDL Cholesterol 41 mg/dL (>40); Potassium 3.6 mmol/L (3.3-5.1); Sodium 143 mmol/L (135-145); Total Protein 7.5 g/dL (6.5-8.0); Triglycerides 210 mg/dL (<150)
[2025-03-18 11:52] LABS: Appearance Urine Clear; Glucose Urine UA Negative (Negative); PH 7.0 (5.0-9.0); Specific Gravity - Urine 1.020 (1.005-1.025)
[2025-03-18 11:54] LABS: Prostate Specific Antigen 5.80 ng/mL (<0.05-4.0)
[2025-03-18 12:11] LABS: Microalbum/Creatinine Ratio Ur 5.3 ug/mg cr (<30)
== END 2025-03-18 08:39 | disposition home or self-care (01) ==
LOC: HO.WFDLDS 08:38
PROVIDERS: Referring Provider Nurse Practitioner Family; Visit Provider Family Medicine
DX: Z00.00 Encounter for general adult medical examination without abnormal findings (principal); Z12.5 Encounter for screening for malignant neoplasm of prostate; I10 Essential (primary) hypertension; N40.0 Benign prostatic hyperplasia without lower urinary tract symptoms; R97.20 Elevated prostate specific antigen [PSA]
CPT/HCPCS: 36415; 80053; 80061; 81003; 82043; 82570; 84153; 84443; 85025

== ENCOUNTER 2025-03-23 08:52 | Outpatient (AMB) | payer OTHER, SELFPAY ==
--- NOTE | 2025-03-23 09:07 | MHC.PC.OV ---
Vital Signs 03/23/25 09:13 Height 5 ft 9 in Weight 213 lb 6 oz BMI 31.5 BP 106/80 Blood Pressure Location Lt brachial Position Sitting Respiration 14 Pulse 51 Pulse Source Pulse Oximeter Temp 97.8 F Temp Source Oral Pulse Oximetry (%) 96 Oxygen Delivery Method Room Air Intake Visit Reasons: CPE with f/u labs and health maint. Intake Note: patient is scheduled for a cpe [employer] Required: No Allergies No Known Allergies Allergy (Verified 03/23/25 09:10) Medication List - Last Reconciled 03/23/25 by Balaji Tse MD atorvastatin 40 mg PO BEDTIME 90 days clonidine HCl 0.1 mg PO BID PRN 90 days finasteride 5 mg PO DAILY 90 days hydrochlorothiazide 25 mg See Protocol PO DAILY hydroxyzine pamoate 50 mg PO BID PRN metoprolol succinate ER 25 mg PO DAILY 90 days olanzapine 20 mg PO BEDTIME 30 days pantoprazole 40 mg PO DAILY 90 days phenytoin sodium extended 300 mg (3 x 100 mg) PO DAILY 30 days Tobacco use date assessed: 03/23/25 Dental Screening Dental Screen Date: 03/23/25 Did you have a dental visit in the last 12 months?: Yes Did you have a dental problem in the last 6 months where you did not have access to dental care?: No Was dental information given to patient?: Patient has dentist HPI CPE with f/u labs and health maint. HPI Details 54 y/o male presents for an extended exam with f/u labs and health maint. Labs drawn 03/18/25. Reviewed labs with pt. Triglycerides 210. TC 154. LDL 71. HDL 41. He is on artovastatin 40mg. PSA elevated at 5.49 ng/mL. He notes he is being followed by urology for this. Blood pressure today 106/80, 51p. He is on metoprolol 25mg, hydrochlorothiazide 25mg daily. PHQ-9 9, JAMES-7 8 today. HPI Comments History of Present Illness Details Documentation assistance for Balaji Tse MD, was provided by Keith Echols,? Corporate Intern on 03/23/2025 at 9:36 AM EST. I, Dr. Tse, have read, observed, and verified documentation. ?? [facility] Medical History Schizophrenia Polysubstance abuse Alcohol use disorder, moderate, in sustained remission, dependence HTN (hypertension) TBI (traumatic brain injury) Epilepsy Surgical History Hx of lithotripsy Family History Mother Substance abuse Social History Household Members: None Housing: Homeless Are you a primary home care music therapist to a significant other at home: No Do you presently have visiting nurse or other home services: No Patient Tobacco Use Status: Former Tobacco user e-Cigarette/Vaping Use: Never Used Second Hand Smoke Exposure: No Substance Use Type: Former Substance User service: No Current occupational status: unemployed Current occupational exposures/hazards: No Sexual orientation: did not discuss. Cognitive needs: No Hearing needs: No Vision needs: No Questionnaire PHQ-9 Over the last 2 weeks, how often have you been bothered by any of the following problems? 1. Little interest or pleasure in doing things: more than half the days 2. Feeling down, depressed, or hopeless: more than half the days 3. Trouble falling or staying asleep, or sleeping too much: nearly every day 4. Feeling tired or having little energy: more than half the days 5. Poor appetite or overeating: not at all 6. Feeling bad about yourself - or that you are a failure or have let yourself or your family down: not at all 7. Trouble concentrating on things, such as reading the newspaper or watching television: not at all 8. Moving or speaking so slowly that other people could have noticed. Or the opposite - being so fidgety or restless that you have been moving around a lot more than usual: not at all 9. Thoughts that you would be better off or of hurting yourself in some way: not at all Total score: 9 Depression Screening Interpretation: Positive Depression Screening Follow-up: In treatment (Patient declines further intervention today) Depression Screening Done: Yes 13575 - PHQ-9 Billing: Yes Source: Developed by Drs. Holger Brumfield, Ria Cruz, Roger Alejo and colleagues, with an educational tamar from [employer]. Thrive Questionnaire Date Thrive assessed: 08/18/24 I am a: Patient What is your living situation today?: I choose not to answer this question Within the past 12 months, did the food you bought not last and you didn't have the money to get more?: I choose not to answer this question Within the past 12 months, did you worry whether your food would run out before you got money to buy more?: I choose not to answer this question Do you have trouble paying for medicines?: No Do you have trouble getting transportation to medical appointments?: No Do you have trouble paying your heating and electricity bill?: No Do you have trouble taking care of your child, family member or friend?: No Do you have trouble with day-to-day activities such as bathing, preparing meals, shopping, managing finances, etc.?: No Are you currently unemployed and looking for a job?: I choose not to answer this question Are you interested in more education?: I choose not to answer this question Please select the resources that you would like help with: Housing/Long-Term Currently or been in a relationship where the following occur: I choose not to answer THRIVE Score: 0 AUDIT C Alcohol Use Questionnaire (AUDIT-C) 1. How often do you have a drink containing alcohol?: Never Total Score: 0 JAMES-7 AMB Questionnaire JAMES-7 Date JAMES - 7 assessed: 03/23/25 Feeling nervous, anxious, or on edge: 2 = More than half the days Not being able to stop or control worryin = More than half the days Worrying too much about different things: 0 = Not at all Trouble relaxin = More than half the days Being so restless that it is hard to sit still: 2 = More than half the days Becoming easily annoyed or irritable: 0 = Not at all Feeling afraid as if something awful might happen: 0 = Not at all Total JAMES-7 score (0-4 normal; 5-9 mild; 10-14 moderate; 15-21 severe): 8 Source: Developed by Drs. Holger Brumfield, Ria Cruz, Roger Alejo and colleagues, with an educational tamar from [employer]. JAMES-7 Assessment Billing JAMES-7 Assessment Tool: JAMES-7 Assessment 08944 Review of Systems Const Denies chills, Denies fatigue, Denies fever(s), Denies headache(s) and Denies weakness Eyes Denies change in vision ENT Denies dizziness, Denies headache(s), Denies hearing loss, Denies nasal congestion, Denies sinus pain, Denies sinus pressure and Denies sore throat Card Denies chest pain, Denies lightheadedness, Denies dyspnea and Denies other (palpitations) Resp Denies cough, Denies dyspnea and Denies wheezing GI Denies abdominal pain, Denies melena, Denies hematochezia, Denies change in bowel habits, Denies dyspepsia and Denies nausea Denies hematuria and Denies dysuria Musc Denies abnormal gait, Denies myalgias, Denies arthralgias, Denies numbness and Denies tingling Skin/Breast Denies rash, Denies unusual bruising and Denies wounds Neuro Denies abnormal gait, Denies dizziness, Denies headache(s), Denies memory loss, Denies numbness, Denies Sensory deficit (Neuro), Denies tingling and Denies weakness Psych Reports anxiety, Reports depression and Denies memory loss Endo Denies cold intolerance, Denies fatigue, Denies heat intolerance, Denies polydipsia and Denies polyuria Bandar/Lymph Denies easy bleeding and Denies easy bruising Aller/Immun Denies wheezing Physical exam (Primary Care) Vital Signs: Last Vital Signs Temp 97.8 F 03/23/25 09:13 Pulse 51 03/23/25 09:13 Resp 14 03/23/25 09:13 BP 106/80 03/23/25 09:13 Pulse Ox 96 03/23/25 09:13 Oxygen Delivery Method Room Air 03/23/25 09:13 BMI result Body Mass Index 31.5 Tobacco/Smoking Status: Tobacco use Status Tobacco use date assessed 03/23/25 03/23/25 09:16 Patient Tobacco Use Status Former Tobacco user 03/23/25 09:08 e-Cigarette/Vaping Use Never Used 03/23/25 09:08 PHQ-9: PHQ-9 Score PHQ-9: Total score 9 03/23/25 09:34 Depression Screening Interpretation: Positive Depression Screening Follow-up: In treatment (Patient declines further intervention today) Thrive Assessment: Date of Thrive Assessment Date Thrive assessed 08/18/24 03/23/25 09:08 Currently or been in a relationship where the following occur: I choose not to answer Const General: no acute distress, well developed, alert and awake Nutritional Appearance: well nourished Orientation/consciousness: patient oriented x3 [facility] Head: Yes normocephalic and Yes atraumatic Ears: hearing grossly normal bilaterally and TM's normal bilaterally General nose exam: Normal external nose present and Normal nares present Mouth: Normal oral and palatal mucosa present and moist mucous membranes Teeth and gingiva: dentition normal Throat: Yes posterior oropharynx normal Eyes General: appearance normal, both eyes and all related structures Pupils: Equal, round and reactive pupils present and Pupil accommodation reflex normal EOM: EOMs intact bilaterally Neck Neck: Yes normal visual inspection, Yes no lymphadenopathy and Yes trachea midline Thyroid: Thyroid normal Carotids: no bruits Lymphatic: no lymphadenopathy noted Chest Chest palpation & inspection: normal inspection of the chest Resp Effort & Inspection: normal respiratory effort Auscultation: clear to auscultation bilaterally Cardio Rate: regular rate Rhythm: regular rhythm Heart sounds: S1 normal heart sound present, S2 normal heart sound present, no gallops, no murmurs and no rubs Bruits: no abdominal aortic bruits and no carotid bruits GI Palpation (GI): No Abdominal aortic bruit present, Soft to palpation, nontender, No hepatosplenomegaly present and No Rebound tenderness present Auscultation: normal bowel sounds General: Yes no CVA tenderness Back/Spine/Pelvis Back: no CVA tenderness Cervical Spine: cervical ROM normal and No Cervical spine tenderness Thoracic/Lumbar Spine: thoraco-lumbar ROM normal, No pain with thoraco-lumbar ROM, No thoracic spinal tenderness and No lumbar spinal tenderness Skin Lesions: no lesions Rashes: no rashes Trauma: no lacerations or abrasions Wounds: no wounds Nails: normal Neuro General: patient oriented x3 Cranial nerves: Yes Equal, round and reactive pupils present Cognition (Neuro): normal cognition Gait exam (Neuro): Normal gait present Motor exam (neuro): 5/5 motor strength present throughout Sensory Exam: No Sensory deficit (Neuro) Deep tendon reflexes (DTR's): Right patellar reflex intensity grade: 2+ and Left patellar reflex intensity grade: 2+ Extrem General: Yes normal to inspection and No edema Psych Appearance: grossly normal Affect: normal affect Attitude: cooperative Thought process: Normal thought process present Coding Level of Care Code Est Pt Level 4 (34340) Diagnoses HTN (hypertension) I10 Hyperlipidemia E78.5 Elevated PSA R97.20 Depression with anxiety F41.8 Screening for colon cancer Z12.11 Screening for prostate cancer Z12.5 Adult general medical exam Z00.00 Additional Codes JAMES-7 Assessment Billing - JAMES-7 Assessment Tool: JAMES-7 Assessment 33884 ([id number]) PHQ-9 - 21939 - PHQ-9 Billing: Yes ([id number]) Assessment & Plan Assessment & Plan (1) HTN (hypertension): Code(s): I10 - Essential (primary) hypertension Category: Medical Plan: Blood pressure is controlled. Goal is less than 140/90 Continue current medications (2) Hyperlipidemia: Code(s): E78.5 - Hyperlipidemia, unspecified Category: Medical Plan: Triglycerides are elevated His other lipids are okay Encouraged diet lower in sugars/sweets and cholesterol (3) Elevated PSA: Code(s): R97.20 - Elevated prostate specific antigen [PSA] Category: Medical Plan: Follow-up with urology (4) Depression with anxiety: Code(s): F41.8 - Other specified anxiety disorders Category: Medical Plan: Patient is on several medications for depression and anxiety as well as schizophrenia He declines further intervention today. (5) Screening for colon cancer: Code(s): Z12.11 - Encounter for screening for malignant neoplasm of colon Category: Medical Plan: Referred to Gastroenterology (6) Screening for prostate cancer: Code(s): Z12.5 - Encounter for screening for malignant neoplasm of prostate Category: Medical Plan: As above, patient is followed by Urology (7) Adult general medical exam: Code(s): Z00.00 - Encounter for general adult medical examination without abnormal findings Category: Medical Plan 54-year-old male presents for an extended exam Encouraged healthy diet with active lifestyle and plenty of exercise Orders: Referrals Gastroenterology Referral Z12.11 - Encounter for screening for malignant neoplasm of colon
[2025-03-23 09:13] VITALS: BP 106/80; PULSE 51; RESP 14; TEMP 36.6; O2SAT 96; BMI 31.5
== END 2025-03-23 09:52 | disposition home or self-care (01) ==
LOC: HO.HMCFM 08:52
PROVIDERS: PCP Family Medicine; Visit Provider Family Medicine
DX: I10 Essential (primary) hypertension (principal); E78.5 Hyperlipidemia, unspecified; R97.20 Elevated prostate specific antigen [PSA]; F41.8 Other specified anxiety disorders; Z12.11 Encounter for screening for malignant neoplasm of colon; Z12.5 Encounter for screening for malignant neoplasm of prostate; Z00.00 Encounter for general adult medical examination without abnormal findings

== ENCOUNTER → 2025-03-23 08:52 | Outpatient (BNVA) | payer OTHER, SELFPAY | PROVIDERS: PCP Family Medicine; Visit Provider Family Medicine | DX: Z00.00 Encounter for general adult medical examination without abnormal findings (principal); I10 Essential (primary) hypertension; E78.5 Hyperlipidemia, unspecified; R97.20 Elevated prostate specific antigen [PSA]; F41.8 Other specified anxiety disorders | CPT/HCPCS: 96127; 99212 ==

== ENCOUNTER 2025-04-01 09:02 | Outpatient (REF) | payer OTHER, SELFPAY ==
--- NOTE | ~2025-04-01 | XR_ITS ---
EXAMINATION: XR ABDOMEN 1 VIEW (KUB) HISTORY: N20.0 - Calculus of kidney COMPARISON: Comparison is made with the prior examination dated 08/19/2024. FINDINGS: Two supine views of the abdomen are submitted. The bowel gas pattern is unremarkable, without evidence of mechanical obstruction. Again seen is a 7-8 mm calculus overlying the right renal shadow. There are phleboliths in the pelvis. There are no abnormal soft tissue masses. The bones are intact. XR/XR KUB IMPRESSION: 7-8 mm right renal calculus. Electronically signed by: Holger Posey MD 04/01/2025 10:29 AM EDT
== END 2025-04-01 09:03 | disposition home or self-care (01) ==
LOC: HO.XRAY 09:02
PROVIDERS: PCP Family Medicine; Visit Provider Nurse Practitioner Family
DX: N40.1 Benign prostatic hyperplasia with lower urinary tract symptoms (principal); N13.8 Other obstructive and reflux uropathy; R33.9 Retention of urine, unspecified; N20.0 Calculus of kidney; R97.20 Elevated prostate specific antigen [PSA]; Z13.89 Encounter for screening for other disorder
CPT/HCPCS: 51798; 74018; 81003; 99212

== ENCOUNTER 2025-04-01 09:02 | Outpatient (AMB) | payer OTHER, SELFPAY ==
--- NOTE | 2025-04-01 09:18 | A.OFFVIS_ITS ---
Intake Visit Reasons: 6m/PSA(set) Intake Note: Patient is present for 6M/PSA Urology Medication:FINASTERIDE Antibiotic Allergy:NONE Blood Thinner:NONE TODAY'S PVR:0ML'S Carding Machine Operator Required: No Allergies No Known Allergies Allergy (Verified 04/01/25 10:36) Medication List - Last Reconciled 04/01/25 by SEAN Mohamud- atorvastatin 40 mg PO BEDTIME 90 days clonidine HCl 0.1 mg PO BID PRN 90 days finasteride 5 mg PO DAILY 90 days hydrochlorothiazide 25 mg See Protocol PO DAILY hydroxyzine pamoate 50 mg PO BID PRN metoprolol succinate ER 25 mg PO DAILY 90 days olanzapine 20 mg PO BEDTIME 30 days pantoprazole 40 mg PO DAILY 90 days phenytoin sodium extended 300 mg (3 x 100 mg) PO DAILY 30 days HPI Comments Details: Ritchie is a very pleasant 54-year-old male patient of Dr. Tse. He has a past medical history of schizophrenia, polysubstance abuse, alcohol use disorder, hypertension, epilepsy, and TBI. He presents to the office today for follow-up of his elevated PSA as well as nephrolithiasis. In discussion with the patient today he reports to be doing and feeling well. He denies having had any bothersome urinary issues or concerns. He reports compliance with finasteride as prescribed. Recent PSA results reviewed with the patient today as noted and trended below: 01/22 4.1, 01/22 3.9 % free PSA 18%, 05/25 3.8, 10/26 3.2, 04/25 4.8 % free PSA 8%, 08/25 5.3 and% free PSA 9%, 03/26 5.5 Of note, patient underwent prostate biopsy with Dr. Patel 09/26 that noted all 12 cores benign prostate tissue. We did discussed potential causes of elevated PSA as well as further treatment options and risks and benefits of these treatment options. Patient also with a history of nephrolithiasis and has underwent right- sided ESWL with Dr. Dontae Rouse 01/01/2024 and 06/03/24. Followed by repeat right-sided ESWL with Dr. Patel 08/19/24. When asked he denies urinary urgency, urinary frequency, incontinence, nocturia, hematuria, dysuria, foul smelling urine, changes to urinary stream, flank pain, fever, and or chills. He is happy with his current voiding parameters. In office urinalysis results reviewed with the patient today. He otherwise offers no issues or concerns at this time. [facility] Medical History Schizophrenia Polysubstance abuse Alcohol use disorder, moderate, in sustained remission, dependence HTN (hypertension) TBI (traumatic brain injury) Epilepsy Surgical History Hx of lithotripsy Family History Mother Substance abuse Social History Household Members: None Housing: Homeless Are you a primary geriatric care manager to a significant other at home: No Do you presently have visiting nurse or other home services: No Patient Tobacco Use Status: Former Tobacco user e-Cigarette/Vaping Use: Never Used Second Hand Smoke Exposure: No Substance Use Type: Former Substance User service: No Current occupational status: unemployed Current occupational exposures/hazards: No Sexual orientation: did not discuss. Cognitive needs: No Hearing needs: No Vision needs: No Review of Systems Const Reports as per HPI Eyes Reports no additional complaints ENT Reports no additional complaints Card Reports as per HPI Resp Reports no additional complaints GI Reports no additional complaints Reports as per HPI Musc Reports no additional complaints Neuro Reports as per HPI Psych Reports as per HPI Endo Reports no additional complaints Bandar/Lymph Reports no additional complaints Aller/Immun Reports no additional complaints Physical Exam Const General: cooperative, healthy appearing, comfortable, no acute distress, well developed, alert and awake Orientation/consciousness: patient oriented x3 Limitations: no limitations HEENT Head: Yes normal to inspection, Yes normocephalic and Yes atraumatic Ears: hearing grossly normal bilaterally Eyes General: appearance normal, both eyes and all related structures Neck Neck: Yes normal visual inspection and Yes trachea midline Chest Chest palpation & inspection: normal inspection of the chest Resp Effort & Inspection: normal respiratory effort and able to speak in complete sentences Cardio Rate: regular rate GI Inspection: Yes normal to inspection Rectal Exam - Male: Yes deferred General: Yes no CVA tenderness Back/Spine/Pelvis Back: no CVA tenderness Skin General skin exam: no rashes or lesions noted Neuro General: patient oriented x3 Extrem General: Yes normal to inspection Psych Appearance: grossly normal and well kempt Mental Status: other (slow to respond ) Speech and movement: Normal speech and movement present and Clear speech present Affect: Other affect and mood findings present (flat ) Attitude: cooperative Thought content: Normal thought content present Insight: Fair insight present (Psych) Judgement: Fair judgement present (Psych) Office Procedures Post Void Residual Post Residual Void Post Void Residual (PVR): 0 [id number] Void Residual by ultrasound Results AMB Urinalysis, Automated UA Leukoctes 0 Wendy/uL Last Edit by JIMENA Mir on 04/01/25 09:31 UA Nitrite Negative Last Edit by JIMENA Mir on 04/01/25 09:31 UA Urobilinogen 3.5 mg/dL Last Edit by JIMENA Mir on 04/01/25 09:3 1 UA Protein 15 mg/dL Last Edit by JIMENA Mir on 04/01/25 09:31 UA pH 6.0 Last Edit by Mckayla Mera CCM on 04/01/25 09:31 UA Blood 0 Steve/uL Last Edit by JIMENA Mir on 04/01/25 09:31 UA Specific [place] 1.015 Last Edit by JIMENA Mir on 04/01/25 09: 31 UA Ketone Negative Last Edit by JIMENA Mir on 04/01/25 09:31 UA Bilirubin 0 mg/dL Last Edit by Mckayla Mera CCM on 04/01/25 09:31 UA Glucose 0 mg/dL Last Edit by Mckayla Mera CCM on 04/01/25 09:31 Results Reviewed Results Reviewed: Laboratory Last Values Urine pH (Auto) 6.0 04/01/25 09:31 Specific [place] (Auto) 1.015 04/01/25 09:31 Urine Protein (Auto) 15 mg/dL 04/01/25 09:31 Glucose (UA)(Auto) 0 mg/dL 04/01/25 09:31 Urine Ketones (Auto) Negative 04/01/25 09:31 Urine Blood (Auto) 0 Steve/uL 04/01/25 09:31 Urine Nitrite (Auto) Negative 04/01/25 09:31 Urine Bilirubin (Auto) 0 mg/dL 04/01/25 09:31 Urine Urobilinogen (Auto) 3.5 mg/dL 04/01/25 09:31 Leukocyte Esterase (Auto) 0 Wendy/uL 04/01/25 09:31 Assessment & Plan Assessment & Plan (1) Enlarged prostate: Code(s): N40.0 - Benign prostatic hyperplasia without lower urinary tract symptoms Category: Medical (2) Elevated PSA: Code(s): R97.20 - Elevated prostate specific antigen [PSA] Category: Medical Plan In office urinalysis results reviewed with the patient today; as noted above. PVR 0 mL We discussed potential causes of elevated PSA as well as further treatment options and risks and benefits of these treatment options. Continue finasteride as discussed and prescribed; refill provided. Will obtain MRI of the prostate for further assessment evaluation. Will obtain KUB for further assessment evaluation. He currently denies any bothersome urinary issues or concerns. He reports be happy with current voiding parameters. Repeat PSA Follow-up in 3 months with imaging to be completed prior; or sooner with any issues, concerns, and or questions. Orders: Orders AMB Urinalysis Automated Today Z13.9 - Encounter for screening, unspecified XR KUB Today N20.0 - Calculus of kidney MR Prostate wo/w con Today N40.0 - Benign prostatic hyperplasia without lower urinary tract symptoms, R97.20 - Elevated prostate specific antigen [PSA] PSA,Total (Free>4and<10) Today N40.0 - Benign prostatic hyperplasia without lower urinary tract symptoms, R97.20 - Elevated prostate specific antigen [PSA] Medications: Refilled finasteride 5 mg PO DAILY 90 tabs 3RF 90 days N13.8 - Other obstructive and reflux uropathy, N40.1 - Benign prostatic hyperplasia with lower urinary tract symptoms, R33.9 - Retention of urine, unspecified Patient Instructions: The patient had an opportunity to ask questions regarding the treatment plan. All questions were answered. Physical exam, labs, and imaging were discussed and reviewed in detail. As well as risks, benefits, and discussion of treatment choices. No major barriers to understanding were identified. The patient expressed understanding and agreement with the above treatment plan. The patient was made aware they should contact our office by phone for worsening of their current condition, the appearance of new symptoms, or with any questions or concerns. Compliance is encouraged with any medications and follow up testing that is ordered. It is a privilege to be allowed the opportunity to participate in? your urological care.? Again, if you have any questions or concerns If you have any questions or concerns please do not hesitate to contact me. The office is [phone]. This note is constructed using voice recognition software. While every effort has been made to ensure accuracy tape duplicator errors may have been included. Yours sincerely, ISHMAEL Mohamud Coding Level of Care Code Est Pt Level 3 (72554) Complex EM visit Add On G2211 Diagnoses Enlarged prostate N40.0 Elevated PSA R97.20 CPT Codes Post Residual Void - PVR CPT Code: 72436-Rlmo Void Residual by ultrasound ([id number])
== END 2025-04-01 10:06 | disposition home or self-care (01) ==
LOC: HO.HUSH 09:03
PROVIDERS: PCP Family Medicine; Visit Provider Nurse Practitioner Family
DX: N40.0 Benign prostatic hyperplasia without lower urinary tract symptoms (principal); R97.20 Elevated prostate specific antigen [PSA]; Z13.9 Encounter for screening, unspecified
CPT/HCPCS: 99213

== ENCOUNTER → 2025-04-01 10:12 | Outpatient (BNV) | payer OTHER, SELFPAY | PROVIDERS: PCP Family Medicine; Visit Provider Radiology Diagnostic Radiology | DX: N20.0 Calculus of kidney (principal) | CPT/HCPCS: 74018 ==

== ENCOUNTER 2025-06-07 09:16 | Outpatient (REF) | payer OTHER, SELFPAY ==
[2025-06-07 11:13] LABS: PSA,Total (Free>4and<10) 4.83 ng/mL (0.00-4.00)
[2025-06-09 13:38] LABS: Free Prostate Spec Ag 0.5 ng/mL; Percent Free Prostate Spec Ag 10 % (calc) (>25)
== END 2025-06-07 09:17 | disposition home or self-care (01) ==
LOC: HO.LAB 09:16
PROVIDERS: PCP Family Medicine; Visit Provider Nurse Practitioner Family
DX: N40.0 Benign prostatic hyperplasia without lower urinary tract symptoms (principal); R97.20 Elevated prostate specific antigen [PSA]
CPT/HCPCS: 36415; 84153; 84154

== ENCOUNTER → 2025-06-09 08:44 | Outpatient (BNV) | payer OTHER, SELFPAY | PROVIDERS: Visit Provider Radiology Diagnostic Radiology | DX: N40.0 Benign prostatic hyperplasia without lower urinary tract symptoms (principal) | CPT/HCPCS: 72197 ==

== ENCOUNTER 2025-06-09 08:50 | Outpatient (REF) | payer OTHER, SELFPAY ==
--- NOTE | ~2025-06-09 | MR_ITS ---
EXAMINATION: MR PROSTATE WITHOUT THEN WITH IV CONTRAST HISTORY: N40.0 - Benign prostatic hyperplasia without lower urinary tract symptoms TECHNIQUE: 1.5T body coil survey of the pelvis was performed. Phase array coil imaging of the prostate was performed in multiplanar high resolution axial, coronal, sagittal fast spin echo T2 and axial T1 weighted imaging sequences. Axial diffusion imaging at intermediate and high field performed with ADC mapping. Next, 10 mL Gadavist was given by intravenous infusion, and dynamic axial imaging performed. 3-D reconstructions and post-processing were not performed as no discrete lesion was identified. COMPARISON: There are no prior studies available for comparison. CLINICAL DATA: Most recent PSA: 4.83 ng/mL on 06/07/2025. PSA Density: 0.074 ng/mL squared Prostate Biopsy: Negative biopsy on 09/22/2024. FINDINGS: Prostate size: 6.0 x 5.3 x 3.9 cm. Calculated prostate volume is 64.5 mL. Hemorrhage: None. Transitional Zone: There is moderate to marked heterogeneous nodular hypertrophy of the transitional zone. Peripheral Zone: No discrete focus of abnormal signal intensity is identified in the peripheral zone to suggest clinically significant prostate carcinoma. There are no foci of restricted diffusion. Seminal Vesicles/Ejaculatory Ducts: Symmetric and normal in signal and caliber. Pelvic Lymph Nodes: No obturator or internal iliac lymph nodes meeting size criteria for adenopathy. Marrow Signal: Normal marrow signal and enhancement without focal lesion identified. MR/MR Prostate wo/w con IMPRESSION: No discrete focus of abnormal signal intensity is identified to suggest clinically significant prostate carcinoma. PI-RADS 1: Very low (clinically significant cancer is highly unlikely to be present) PI-RADS Assessment Categories PI-RADS 1: Very low (clinically significant cancer is highly unlikely to be present) PI-RADS 2: Low (clinically significant cancer is unlikely to be present) PI-RADS 3: Intermediate (the presence of clinically significant cancer is equivocal) PI-RADS 4: High (clinically significant cancer is likely to be present) PI-RADS 5: Very high (clinically significant cancer is highly likely to be present) [employer]. MR Prostate Imaging Reporting and Data System version 2.1. [email or web address]-[email or web address] Electronically signed by: Holger Posey MD 06/09/2025 10:07 AM EDT RP
== END 2025-06-09 08:51 | disposition home or self-care (01) ==
LOC: HO.MRI 08:50
PROVIDERS: Visit Provider Nurse Practitioner Family
DX: N40.0 Benign prostatic hyperplasia without lower urinary tract symptoms (principal); R97.20 Elevated prostate specific antigen [PSA]
CPT/HCPCS: 72197; 76377; A9585

== ENCOUNTER 2025-06-23 07:54 | Outpatient (AMB) | payer OTHER, SELFPAY ==
--- NOTE | 2025-06-23 07:58 | MHC.OFFVIS ---
Intake Visit Reasons: mri and kub 3 mo follow up Intake Note: Patient is present for 3M/MRI/KUB Urology Medication:FINASTERIDE Antibiotic Allergy:NONE Blood Thinner:NONE Assembler Dielectric Heater Required: No Allergies No Known Allergies Allergy (Verified 06/23/25 08:54) Medication List - Last Reconciled 06/23/25 by ISHMAEL Mohamud atorvastatin 40 mg PO BEDTIME 90 days clonidine HCl 0.1 mg PO BID PRN 90 days finasteride 5 mg PO DAILY 90 days hydrochlorothiazide 25 mg See Protocol PO DAILY hydroxyzine pamoate 50 mg PO BID PRN metoprolol succinate ER 25 mg PO DAILY 90 days olanzapine 20 mg PO BEDTIME 30 days pantoprazole 40 mg PO DAILY 90 days phenytoin sodium extended 300 mg (3 x 100 mg) PO DAILY 30 days HPI Comments Details: Ritchie is a very pleasant 54-year-old male patient of Dr. Tse. He has a past medical history of schizophrenia, polysubstance abuse, alcohol use disorder, hypertension, epilepsy, and TBI. He presents to the office today for follow-up of his elevated PSA as well as nephrolithiasis. In discussion with the patient today he reports to be doing and feeling well. He denies having had any bothersome urinary issues or concerns. He reports compliance with finasteride as prescribed. Recent PSA results reviewed with the patient today as noted and trended below: 01/22 4.1, 01/22 3.9 % free PSA 18%, 05/25 3.8, 10/26 3.2, 04/25 4.8 % free PSA 8%, 08/25 5.3 and% free PSA 9%, 03/26 5.5, 06/26 4.8 % free 10%. Recent prostate MRI imaging results as well as KUB results were reviewed with the patient today. 03/26 KUB 7-8 mm right renal calculus there are no abnormal soft tissue masses. Prostate MRI 06/26 prostate volume calculated at 64.5 mL. There is no discrete focus of abnormal signal intensity to identify or suggest clinically significant prostate carcinoma. PI-RADS 1. When asked he denies any bothersome urinary issues or concerns. We did discuss further intervention of nephrolithiasis to include lithotripsy versus ureteroscopy versus surveillance monitoring. He would like to proceed with surveillance monitoring at this time. Patient does have a previous surgical history of nephrolithiasis and underwent right-sided ESWL with Dr. Dontae Rouse 01/01/2024 as well as 06/03/2024. Followed by a repeat right-sided as well with Dr. Patel 08/19/2024. In office urinalysis results reviewed with the patient today. When asked he denies urinary urgency, urinary frequency, incontinence, nocturia, hematuria, dysuria, foul smelling urine, changes to urinary stream, flank pain, fever, and or chills. He is happy with his current voiding parameters. ADOLFO was offered however deferred. He does report to be drinking plenty of water daily. He otherwise offers no issues or concerns at this time. [facility] Medical History Schizophrenia Polysubstance abuse Alcohol use disorder, moderate, in sustained remission, dependence HTN (hypertension) TBI (traumatic brain injury) Epilepsy Surgical History Hx of lithotripsy Family History Mother Substance abuse Social History Household Members: None Housing: Homeless Are you a primary pulmonary care nurse to a significant other at home: No Do you presently have visiting nurse or other home services: No Patient Tobacco Use Status: Former Tobacco user e-Cigarette/Vaping Use: Never Used Second Hand Smoke Exposure: No Substance Use Type: Former Substance User service: No Current occupational status: unemployed Current occupational exposures/hazards: No Sexual orientation: did not discuss. Cognitive needs: No Hearing needs: No Vision needs: No Review of Systems Const Reports as per HPI Eyes Reports no additional complaints ENT Reports no additional complaints Card Reports as per HPI Resp Reports no additional complaints GI Reports no additional complaints Reports as per HPI Musc Reports no additional complaints Neuro Reports as per HPI Psych Reports as per HPI Endo Reports no additional complaints Bandar/Lymph Reports no additional complaints Aller/Immun Reports no additional complaints Physical Exam Const General: cooperative, healthy appearing, comfortable, no acute distress, well developed, alert and awake Orientation/consciousness: patient oriented x3 Limitations: no limitations HEENT Head: Yes normal to inspection, Yes normocephalic and Yes atraumatic Ears: hearing grossly normal bilaterally Eyes General: appearance normal, both eyes and all related structures Neck Neck: Yes normal visual inspection and Yes trachea midline Chest Chest palpation & inspection: normal inspection of the chest Resp Effort & Inspection: normal respiratory effort and able to speak in complete sentences Cardio Rate: regular rate GI Inspection: Yes normal to inspection Rectal Exam - Male: Yes deferred General: Yes no CVA tenderness Back/Spine/Pelvis Back: no CVA tenderness Skin General skin exam: no rashes or lesions noted Neuro General: patient oriented x3 Extrem General: Yes normal to inspection Psych Appearance: grossly normal and well kempt Mental Status: other (slow to respond ) Speech and movement: Normal speech and movement present and Clear speech present Affect: Other affect and mood findings present (flat ) Attitude: cooperative Thought content: Normal thought content present Insight: Fair insight present (Psych) Judgement: Fair judgement present (Psych) Results AMB Urinalysis, Automated UA Leukoctes 0 Wendy/uL Last Edit by JIMENA Mir on 06/23/25 08:13 UA Nitrite Negative Last Edit by JIMENA Mir on 06/23/25 08:13 UA Urobilinogen 0.2 mg/dL Last Edit by JIMENA Mir on 06/23/25 08:13 UA Protein 15 mg/dL Last Edit by JIMENA Mir on 06/23/25 08:13 UA pH 6.0 Last Edit by JIMENA Mir on 06/23/25 08:13 UA Blood 0 Steve/uL Last Edit by JIMENA Mir on 06/23/25 08:13 UA Specific [place] 1.020 Last Edit by JIMENA Mir on 06/23/25 08:13 UA Ketone Negative Last Edit by JIMENA Mir on 06/23/25 08:13 UA Bilirubin 0 mg/dL Last Edit by JIMENA Mir on 06/23/25 08:13 UA Glucose 0 mg/dL Last Edit by JIMENA Mir on 06/23/25 08:13 Results Reviewed Results Reviewed: Laboratory Last Values Urine pH (Auto) 6.0 06/23/25 08:11 Specific [place] (Auto) 1.020 06/23/25 08:11 Urine Protein (Auto) 15 mg/dL 06/23/25 08:11 Glucose (UA)(Auto) 0 mg/dL 06/23/25 08:11 Urine Ketones (Auto) Negative 06/23/25 08:11 Urine Blood (Auto) 0 Steve/uL 06/23/25 08:11 Urine Nitrite (Auto) Negative 06/23/25 08:11 Urine Bilirubin (Auto) 0 mg/dL 06/23/25 08:11 Urine Urobilinogen (Auto) 0.2 mg/dL 06/23/25 08:11 Leukocyte Esterase (Auto) 0 Wendy/uL 06/23/25 08:11 Date of Service: 04/01/25 Procedure(s): XR KUB FINDINGS: Two supine views of the abdomen are submitted. The bowel gas pattern is unremarkable, without evidence of mechanical obstruction. Again seen is a 7-8 mm calculus overlying the right renal shadow. There are phleboliths in the pelvis. There are no abnormal soft tissue masses. The bones are intact. IMPRESSION: 7-8 mm right renal calculus. Date of Service: 06/09/25 Procedure(s): MR Prostate wo/w con FINDINGS: Prostate size: 6.0 x 5.3 x 3.9 cm. Calculated prostate volume is 64.5 mL. Hemorrhage: None. Transitional Zone: There is moderate to marked heterogeneous nodular hypertrophy of the transitional zone. Peripheral Zone: No discrete focus of abnormal signal intensity is identified in the peripheral zone to suggest clinically significant prostate carcinoma. There are no foci of restricted diffusion. Seminal Vesicles/Ejaculatory Ducts: Symmetric and normal in signal and caliber. Pelvic Lymph Nodes: No obturator or internal iliac lymph nodes meeting size criteria for adenopathy. Marrow Signal: Normal marrow signal and enhancement without focal lesion identified. IMPRESSION: No discrete focus of abnormal signal intensity is identified to suggest clinically significant prostate carcinoma. PI-RADS 1: Very low (clinically significant cancer is highly unlikely to be present) Assessment & Plan Assessment & Plan (1) BPH with elevated PSA: Code(s): N40.0 - Benign prostatic hyperplasia without lower urinary tract symptoms; R97.20 - Elevated prostate specific antigen [PSA] Category: Medical (2) Enlarged prostate: Code(s): N40.0 - Benign prostatic hyperplasia without lower urinary tract symptoms Category: Medical (3) Elevated PSA: Code(s): R97.20 - Elevated prostate specific antigen [PSA] Category: Medical (4) Nephrolithiasis: Code(s): N20.0 - Calculus of kidney Category: Medical Plan In office urinalysis results with the patient today; as noted above. Recent prostate MRI results reviewed with the patient today; as noted above. Recent KUB results reviewed with the patient today; as noted above. We discussed further treatment options of elevated PSA as well as nephrolithiasis; we discussed risks and benefits of these interventions. He currently denies any bothersome urinary issues or concerns. He reports be happy with current voiding parameters. Continue finasteride; refill provided We discussed importance of continuing with adequate hydration in relation to nephrolithiasis as well as overall health and well-being. Will continue with surveillance monitoring at this time per patient request. Will obtain KUB in 4 months. Will obtain PSA in 4 months. Follow-up in 4-6 months with imaging and lab to be completed prior; or sooner with any issues, concerns, and or questions. Orders: Orders AMB Urinalysis Automated Today Z13.9 - Encounter for screening, unspecified Prostate Specific Antigen 4 Months N40.0 - Benign prostatic hyperplasia without lower urinary tract symptoms, R97.20 - Elevated prostate specific antigen [PSA] XR KUB 4 Months N20.0 - Calculus of kidney Medications: Refilled finasteride 5 mg PO DAILY 90 tabs 3RF 90 days N13.8 - Other obstructive and reflux uropathy, N40.1 - Benign prostatic hyperplasia with lower urinary tract symptoms, R33.9 - Retention of urine, unspecified Patient Instructions: The patient had an opportunity to ask questions regarding the treatment plan. All questions were answered. Physical exam, labs, and imaging were discussed and reviewed in detail. As well as risks, benefits, and discussion of treatment choices. No major barriers to understanding were identified. The patient expressed understanding and agreement with the above treatment plan. The patient was made aware they should contact our office by phone for worsening of their current condition, the appearance of new symptoms, or with any questions or concerns. Compliance is encouraged with any medications and follow up testing that is ordered. It is a privilege to be allowed the opportunity to participate in? your urological care.? Again, if you have any questions or concerns If you have any questions or concerns please do not hesitate to contact me. The office is [phone]. This note is constructed using voice recognition software. While every effort has been made to ensure accuracy refractory grinder operator errors may have been included. Yours sincerely, ISHMAEL Mohamud Coding Level of Care Code Est Pt Level 3 (99945) Complex EM visit Add On G2211 Diagnoses BPH with elevated PSA N40.0; R97.20 Enlarged prostate N40.0 Elevated PSA R97.20 Nephrolithiasis N20.0
== END 2025-06-23 08:34 | disposition home or self-care (01) ==
LOC: HO.HUSH 07:54
PROVIDERS: PCP Family Medicine; Visit Provider Nurse Practitioner Family
DX: N40.0 Benign prostatic hyperplasia without lower urinary tract symptoms (principal); R97.20 Elevated prostate specific antigen [PSA]; N20.0 Calculus of kidney; Z13.9 Encounter for screening, unspecified
CPT/HCPCS: 99213

== ENCOUNTER → 2025-06-23 07:54 | Outpatient (BNVA) | payer OTHER, SELFPAY | PROVIDERS: PCP Family Medicine; Visit Provider Nurse Practitioner Family | DX: N40.0 Benign prostatic hyperplasia without lower urinary tract symptoms (principal); N20.0 Calculus of kidney; R97.20 Elevated prostate specific antigen [PSA]; R33.9 Retention of urine, unspecified | CPT/HCPCS: 81003; 99212 ==

== ENCOUNTER 2025-06-24 10:34 | Outpatient (AMB) | payer OTHER, SELFPAY ==
--- NOTE | 2025-06-24 12:09 | A.OFFPC_ITS ---
Vital Signs 06/24/25 12:11 Height 5 ft 9 in Weight 219 lb BMI 32.3 BP 114/90 H Blood Pressure Location Rt brachial Position Sitting Respiration 18 Pulse 62 Pulse Source Pulse Oximeter Temp 97.8 F Temp Source Oral Pulse Oximetry (%) 95 Oxygen Delivery Method Room Air Intake Visit Reasons: f/u HTN Intake Note: patient is scheduled for htn follow up Plumber Helper Required: No Allergies No Known Allergies Allergy (Verified 06/24/25 12:10) Medication List - Last Reconciled 06/24/25 by Balaji Tse MD atorvastatin 40 mg PO BEDTIME 90 days clonidine HCl 0.1 mg PO BID PRN 90 days finasteride 5 mg PO DAILY 90 days hydrochlorothiazide 25 mg See Protocol PO DAILY hydroxyzine pamoate 50 mg PO BID PRN metoprolol succinate ER 25 mg PO DAILY 90 days olanzapine 20 mg PO BEDTIME 30 days pantoprazole 40 mg PO DAILY 90 days phenytoin sodium extended 300 mg (3 x 100 mg) PO DAILY 30 days Tobacco use date assessed: 03/23/25 Dental Screening Dental Screen Date: 03/23/25 HPI f/u HTN HPI Details 54 y/o male presents to f/u HTN. BP today 114/90, 62p. He is on hydrochlorothiazide 25mg, metoprolol 25mg daily. Has been watching the salt in his food. Has complaints of skin issues of his foot. HPI Comments History of Present Illness Details Documentation assistance for Balaji Tse MD, was provided by Keith Echols,? [employer] on 06/24/2025 at 12:51 PM EST. I, Dr. Tse, have read, observed, and verified documentation. ?? [facility] Medical History Schizophrenia Polysubstance abuse Alcohol use disorder, moderate, in sustained remission, dependence HTN (hypertension) TBI (traumatic brain injury) Epilepsy Surgical History Hx of lithotripsy Family History Mother Substance abuse Social History Household Members: None Housing: Homeless Are you a primary intensive care ambulance paramedic to a significant other at home: No Do you presently have visiting nurse or other home services: No Patient Tobacco Use Status: Former Tobacco user e-Cigarette/Vaping Use: Never Used Second Hand Smoke Exposure: No Substance Use Type: Former Substance User service: No Current occupational status: unemployed Current occupational exposures/hazards: No Sexual orientation: did not discuss. Cognitive needs: No Hearing needs: No Vision needs: No Questionnaire Thrive Questionnaire Date Thrive assessed: 03/23/25 I am a: Patient What is your living situation today?: I choose not to answer this question Within the past 12 months, did the food you bought not last and you didn't have the money to get more?: I choose not to answer this question Within the past 12 months, did you worry whether your food would run out before you got money to buy more?: I choose not to answer this question Do you have trouble paying for medicines?: No Do you have trouble getting transportation to medical appointments?: No Do you have trouble paying your heating and electricity bill?: No Do you have trouble taking care of your child, family member or friend?: No Do you have trouble with day-to-day activities such as bathing, preparing meals, shopping, managing finances, etc.?: No Are you currently unemployed and looking for a job?: I choose not to answer this question Are you interested in more education?: I choose not to answer this question Please select the resources that you would like help with: Housing/[facility] Currently or been in a relationship where the following occur: I choose not to answer THRIVE Score: 0 JAMES-7 AMB Questionnaire JAMES-7 Date JAMES - 7 assessed: 03/23/25 Source: Developed by Drs. Holger Brumfield, Ria Cruz, Roger Alejo and colleagues, with an educational tamar from [employer]. Review of Systems Const Denies chills, Denies fatigue, Denies fever(s), Denies headache(s) and Denies weakness ENT Denies dizziness and Denies headache(s) Card Denies dyspnea Resp Denies cough, Denies dyspnea, Denies wheezing and Denies other (shortness of breath) Musc Denies numbness and Denies tingling Neuro Denies dizziness, Denies headache(s), Denies numbness, Denies tingling and Denies weakness Psych Denies anxiety and Denies depression Endo Denies fatigue Aller/Immun Denies wheezing Physical exam (Primary Care) Vital Signs: Last Vital Signs Temp 97.8 F 06/24/25 12:11 Pulse 62 06/24/25 12:11 Resp 18 06/24/25 12:11 BP 114/90 H 06/24/25 12:11 Pulse Ox 95 06/24/25 12:11 Oxygen Delivery Method Room Air 06/24/25 12:11 BMI result Body Mass Index 32.3 Tobacco/Smoking Status: Tobacco use Status Tobacco use date assessed 03/23/25 06/24/25 12:13 Patient Tobacco Use Status Former Tobacco user 06/24/25 12:13 e-Cigarette/Vaping Use Never Used 06/24/25 12:13 Thrive Assessment: Date of Thrive Assessment Date Thrive assessed 03/23/25 06/24/25 12:13 Currently or been in a relationship where the following occur: I choose not to answer Const General: well developed; No acute distress Nutritional Appearance: well nourished Orientation/consciousness: patient oriented x3 HENMT Head: Yes normocephalic and Yes atraumatic Eyes General: appearance normal, both eyes and all related structures Pupils: Equal, round and reactive pupils present EOM: EOMs intact bilaterally Resp Effort & Inspection: normal respiratory effort Neuro General: patient oriented x3 and gait normal Cranial nerves: Yes Equal, round and reactive pupils present Psych Affect: normal affect Coding Level of Care Code Est Pt Level 4 (76662) Diagnoses HTN (hypertension) I10 Dermatitis of foot L30.9 Screening for colon cancer Z12.11 Nephrolithiasis N20.0 Assessment & Plan Assessment & Plan (1) HTN (hypertension): Code(s): I10 - Essential (primary) hypertension Category: Medical Plan: Has not blood pressure is a little elevated today. Goal is less than 140/90 Generally blood pressures have been well controlled. No change in blood pressure medications today Watch salt and sodium in diet Will continue monitoring (2) Dermatitis of foot: Code(s): L30.9 - Dermatitis, unspecified Category: Medical Plan: Will give him a script for triamcinolone b.i.d. x2 weeks Use Eucerin or other moisturizing lotion If not improving he will let me know and we can make a referral to Podiatry or dermatology. (3) Screening for colon cancer: Code(s): Z12.11 - Encounter for screening for malignant neoplasm of colon Category: Medical Plan: Patient received a letter from GI but has not contacted them yet Gave him the phone number to call GI to schedule 1st appointment (4) Nephrolithiasis: Code(s): N20.0 - Calculus of kidney Category: Medical Plan Nephrolithiasis and BPH. Followed by urology and tolerating finasteride. Hydrate well Follow-up urology as recommended
[2025-06-24 12:11] VITALS: BP 114/90; PULSE 62; RESP 18; TEMP 36.6; O2SAT 95; BMI 32.3
== END 2025-06-24 12:55 | disposition home or self-care (01) ==
LOC: HO.HMCFM 10:35
PROVIDERS: PCP Family Medicine; Visit Provider Family Medicine
DX: I10 Essential (primary) hypertension (principal); L30.9 Dermatitis, unspecified; Z12.11 Encounter for screening for malignant neoplasm of colon; N20.0 Calculus of kidney

== ENCOUNTER → 2025-06-24 10:34 | Outpatient (BNVA) | payer OTHER, SELFPAY | PROVIDERS: PCP Family Medicine; Visit Provider Family Medicine | DX: I10 Essential (primary) hypertension (principal); L30.9 Dermatitis, unspecified; N20.0 Calculus of kidney | CPT/HCPCS: 99212 ==